=== PATIENT | male | born 1955 | race Caucasian/White ===

== ENCOUNTER 2017-08-13 13:07 | Inpatient (IN) | payer OTHER ==
[~2017-08-13] VITALS: Ht 188 cm; Wt 96.7 kg
[~2017-08-13 13:07] MED LIST: ASPI81TA28 PO; CLOP1TAB5 PO; FLUT0.0529 NAE; GLIM1TAB2 PO; LEVO75TA5 PO; LISI40TA PO; META800T99 PO; METF-384 PO; METO50TA8 PO; Mometasone Furoate TOP; NITR0.4S UT; OXYCONTIN HCL PO; RANI150T85 PO; ZOLP10TA6 PO
[2017-08-13] MEDS ORDERED: SODIUM CHLORIDE 0.9% 1000ML 1,000 ML IV STA (13:30)
[2017-08-13 13:34] LABS: BASO % 0.3 %; BASO ABS # 0.02 K/uL (0-0.2); EOS % 2.7 %; EOS ABS # 0.18 K/uL (0-0.5); HEMATOCRIT 41.9 % (42-52); HEMOGLOBIN 14.1 g/dL (14.0-18.0); IG# 0.02 K/uL (0.00-0.02); LYMPH ABS # 1.75 K/uL (1.2-3.4); MEAN CELL VOLUME 92.3 fL (80-100); MEAN CORPUSCULAR HEMOGLOBIN 31.1 pg (25-34); MEAN CORPUSCULAR HGB CONC 33.7 g/dl (32-36); MEAN PLATELET VOLUME 9.1 fL (7.4-10.4); MONO % 8.6 %; MONO ABS # 0.58 K/uL (0.11-0.59); NEUT % 62.1 %; NEUT ABS # 4.17 K/uL (1.4-6.5); PLATELET COUNT 195 K/uL (130-400); RED CELL DISTRIBUTION WIDTH CV 13.4 % (11.5-14.5); RED CELL DISTRIBUTION WIDTH SD 45.3 fL (36.4-46.3); WHITE BLOOD COUNT 6.72 K/uL (4.8-10.8)
[2017-08-13 13:50] LABS: ALBUMIN 3.6 gm/dl (3.4-5.0); CALCIUM 8.8 mg/dl (8.5-10.1); CREATININE 1.03 mg/dl (0.60-1.40); POTASSIUM 3.8 mmol/L (3.5-5.1)
[2017-08-13 13:53] LABS: TOTAL PROTEIN 7.5 gm/dl (6.4-8.2)
--- NOTE | 2017-08-13 14:01 | DIAGNOSTIC IMAGING REPORT ---
SINGLE VIEW CHEST CLINICAL HISTORY: Neck mass seen by CT. FINDINGS: 2 AP, portable, upright chest radiographs are compared to study dated 04/03/2006. The examination is degraded by portable technique and patient rotation. The heart appears mildly enlarged. The pulmonary vasculature is noncongested. Widening of the superior mediastinum is suggested. Bibasilar atelectasis is observed. A 2.5 cm nodular density projects over the right upper lobe. No large pleural effusion or pneumothorax is seen. The skeletal structures are osteopenic. The bony thorax is grossly intact. IMPRESSION: 1. A 2.5 cm nodular density projects of the right upper lobe. Correlation with chest CT is recommended to assess for pulmonary lesion. 2. There is apparent widening of the mediastinum. This could be artifactual or could potential represent lymphadenopathy. This can also be assessed by CT. 3. Bibasilar atelectasis is observed. No airspace consolidation is seen typical for pneumonia. Electronically signed by: Joe Hanley M.D. 08/13/2017 2:00 PM Dictated Date/Time: 08/13/2017 1:57 PM
[2017-08-13] MEDS ORDERED: GABA-113 PO ×2 (14:07)
[2017-08-13] MEDS ORDERED: FLUT0.15 NAE (14:07)
[2017-08-13] MEDS ORDERED: MoRPHine SULFATE 10 MG/ML CARP/VIAL IV STA (14:52)
[2017-08-13] MEDS ORDERED: NITROGLYCERIN 0.4 MG SL PER TAB CHARGE SL PRN (15:15)
[2017-08-13] MEDS ORDERED: GLUCAGON FOR INJ 1 MG VIAL SQ PRN (15:15)
[2017-08-13] MEDS ORDERED: GLUCOSE 10 TABS/TUBE PO PRN (15:15)
[2017-08-13] MEDS ORDERED: HYDR12.56 PO (15:15)
[2017-08-13] MEDS ORDERED: ACETAMINOPHEN 325 MG TAB PO PRN (15:15)
[2017-08-13] MEDS ORDERED: AMLO-114 PO (15:15)
[2017-08-13] MEDS ORDERED: TRAM-10 PO (15:15)
[2017-08-13] MEDS ORDERED: POLYETHYLENE (MIRALAX) 17 GM PACK PO PRN (15:15)
[2017-08-13] MEDS ORDERED: GLUCOSE 40% GEL 15 GM TUBE PO PRN (15:15)
[2017-08-13] MEDS ORDERED: PANT40TA PO (15:15)
[2017-08-13] MEDS ORDERED: DEXTROSE 50% 50 ML SYR IV PRN (15:15)
[2017-08-13] MEDS ORDERED: MELA1TAB5 PO (15:15)
[2017-08-13] MEDS ORDERED: ZOLPIDEM TARTRATE 10 MG TAB PO PRN (15:30)
[2017-08-13] MEDS ORDERED: TRAMADOL HCL 50 MG TAB PO PRN (15:30)
--- NOTE | 2017-08-13 15:38 | DIAGNOSTIC IMAGING REPORT ---
CT SCAN OF THE CHEST WITHOUT IV CONTRAST CLINICAL HISTORY: Reported history of neck mass. Abnormal chest x-ray. COMPARISON STUDY: Chest x-ray dated 08/13/2017. TECHNIQUE: CT scan of the thorax was performed from the thoracic inlet to the upper abdomen. Images are reviewed in the axial, sagittal, and coronal planes. IV contrast was not administered for this examination as per the referring clinician. Note that the examination was performed in suboptimal fashion without IV contrast. A dose lowering technique was utilized adhering to the principles of ALARA. CT DOSE: 774.92 mGy.cm FINDINGS: Thyroid: Imaged portions of the thyroid gland are normal in size and attenuation. Thoracic aorta: There is mild atherosclerotic calcification of the thoracic aorta, which is normal in caliber and demonstrates standard 3-vessel arch anatomy. Heart: The heart is normal in size and there is a small pericardial effusion. The coronary arteries are densely calcified. Lungs and pleural spaces: Mild emphysematous change is identified. There are small pleural effusions associated atelectasis. No airspace consolidation is seen typical for pneumonia. There is a multilobulated/spiculated mass lesion in the right upper lobe in the suprahilar region. This measures 4.0 x 3.0 x 2.6 cm. Numerous additional small nodules are seen in the right upper lobe. Intralobular septal thickening and nodularity are seen in the right upper lobe. No lesions are seen in the right middle or lower lobes, and there is no left-sided pulmonary lesion identified. Lower neck: Cervical adenopathy is partially visualized. A left cervical chain node seen on image #2 measures 3.6 x 3.3 cm. Mediastinum: There is bulky mediastinal lymphadenopathy. A right paratracheal node on image #111 measures 3.6 x 3.0 cm. Confluent anterior/superior mediastinal adenopathy measures approximately 4.5 x 10 cm as seen on image #77 Julia: Not well assessed without IV contrast. There is probable right hilar adenopathy. Axillae: There is no axillary lymphadenopathy. Upper abdomen: Bilateral adrenal nodules are indeterminant and measure up to 2.8 cm. Findings suggest hepatic steatosis. A tiny hiatal hernia is observed. Excreted contrast is seen within the renal collecting system bilaterally. Skeletal structures: The skeletal structures are osteopenic. No lytic or blastic bony lesions are seen. IMPRESSION: 1. There is a 4.0 cm right upper lobe mass lesion. This should be considered neoplasm until proven otherwise. 2. Additional subcentimeter nodules are seen in the right upper lobe with associated intralobular septal thickening. This likely represents lymphangitic spread of tumor. 3. There is bulky mediastinal lymphadenopathy, left cervical adenopathy, and probable right hilar adenopathy. This should also be considered neoplasm until proven otherwise. 4. Small pleural effusions are identified. 5. There is a small pericardial effusion. 6. Bilateral adrenal nodules are indeterminant. 7. Emphysema. 8. Additional findings as above. Electronically signed by: Joe Hanley M.D. 08/13/2017 3:37 PM Dictated Date/Time: 08/13/2017 3:28 PM
--- NOTE | 2017-08-13 15:57 | History and Physical ---
History & Physical Date & Time of Service: Aug 13, 2017 at 15:25 Chief Complaint: Pain,Light Headed, Dizzy Primary Care Physician: Fabián Pérez M.D. History of Present Illness Source: patient, spouse, clinic records, hospital records Pt is 62 y/o M with PMH DM II, HTN, CAD S/P LILLI LAD 2 in 2010, chronic RBBB, chronic low back pain, hypothyroidism sent to ER for neck swelling and mass. Patient seen outpatient at PCP office today for neck swelling and had stat CT scan and sent to ER for further evaluation. Patient reports for past month has noticed some dysphagia, hoarseness, sore throat and bilateral neck pain. Past week has noticed bilateral neck swelling and difficulty with range of motion neck secondary to neck swelling. States it has been drooling. During the day he is able to swallow secretions and has been eating and drinking. Has discomfort swallowing but denies any choking or food bolus sensation. Past week been feeling lightheaded with walking. Denies syncope. Patient states has been having night sweats. Denies fever, N/V/D/C, MOURA, vision changes, CP, SOB, orthopnea, palpitations, cough, otalgia, abdominal pain, paresthesias, weakness , extremity weakness, extremity edema, rashes, urinary symptoms, weight loss. 08/13/17 CT neck with contrast: Impression: 1 conglomerate superior mediastinal and cervical lymphadenopathy and partially imaged right upper lobe lung mass. Findings are highly concerning for malignancy, particularly lymphoma or metastatic lung cancer. 2. Massive lymph adenopathy partially surrounds the trachea, encases the innominate artery and severely compresses and may invade the superior vena cava. 3. Diffuse subcutaneous, retropharyngeal, hypopharyngeal and laryngeal edema may be secondary to venous congestion. Past Medical/Surgical History Medical Problems: (1) Abrasion Status: Resolved (2) CAD (coronary artery disease) Permanent Comment: s/p LILLI LAD x 2, 2010 Status: Chronic (3) Chronic low back pain Status: Chronic (4) Crush injury forearm Status: Resolved (5) Diabetes Status: Chronic (6) HTN (hypertension) Status: Chronic (7) Hypothyroidism Status: Chronic (8) RBBB Status: Chronic Surgical Problems: (1) History of lumbar spinal fusion Status: Resolved (2) Hx of cardiac cath Permanent Comment: 2010- LILLI to LAD x 2 Status: Resolved Family History Cancer (Breast CA-mother) Social History Smoking Status: Former Smoker (Quit 2004. Smoked 1 PPD day 30 years) Smokeless Tobacco Use: No Alcohol Use: Rare Drug Use: none Marital Status: Housing status: lives with family Occupational Status: retired Allergies Coded Allergies: Naproxen (Verified Allergy, Unknown, ., 08/13/17) Home Medications Scheduled Amlodipine (Norvasc), 10 MG PO DAILY Aspirin (Aspirin Ec), 81 MG PO DAILY Fluticasone Propionate (Nasal) (Flonase Allergy Relief), 2 SPRAY DESTIN DAILY Gabapentin (Neurontin), 300 MG PO TID Glimepiride (Glimepiride), 1 MG PO DAILY Hydrochlorothiazide (Hctz), 1 CAP PO DAILY Levothyroxine Sodium (Levothyroxine Sodium), 75 MCG PO DAILY Lisinopril (Zestril), 40 MG PO DAILY Melatonin (Kp Melatonin), 1 TAB PO HS Metformin Hcl (Glucophage), 1,000 MG PO BID Metoprolol Succ (Toprol Xl) (Toprol-Xl), 50 MG PO DAILY Pantoprazole Sodium (Protonix), 1 TAB PO DAILY Rosuvastatin Calcium (Crestor), 40 MG PO QPM Scheduled PRN Nitroglycerin (Nitrostat), 0.4 MG UT UD PRN for Chest Pain Tramadol (Ultram), 50 MG PO Q6 PRN for Pain Zolpidem Tartrate (Zolpidem Tartrate), 10 MG PO HS PRN for Sleep Review of Systems See HPI for pertinent positives & negatives. All other systems reviewed and were otherwise negative Physical Exam Vital Signs Date Time Temp Pulse Resp B/P (MAP) Pulse Ox O2 Delivery O2 Flow Rate FiO2 08/13/17 15:02 71 18 120/67 95 Room Air 08/13/17 13:58 76 20 131/67 95 Room Air 08/13/17 13:25 95 Room Air 08/13/17 13:23 75 08/13/17 13:12 36.8 76 20 119/69 97 Room Air General Appearance: WD/WN, no apparent distress Head: normocephalic, atraumatic Eyes: normal inspection, PERRL, EOMI, sclerae normal ENT: hearing grossly normal, pharynx normal (No edema or erythema noted. Uvula midline. Tongue without erythema or edema.), + pertinent finding (Mucous membranes moist) Neck: trachea midline, + pertinent finding (Diffuse edema. Positive lymphadenopathy) Respiratory/Chest: lungs clear, normal breath sounds, no respiratory distress Cardiovascular: regular rate, rhythm, no murmur, normal peripheral pulses Abdomen/GI: normal bowel sounds, non tender, soft Back: no CVA tenderness Extremities/Musculoskelatal: normal inspection, no calf tenderness, no pedal edema, normal range of motion, non-tender Neurologic/Psych: alert, normal mood/affect, oriented x 3 Skin: normal color, warm/dry Diagnostics Laboratory Results Results Past 24 Hours Test 08/13/17 13:25 08/13/17 14:20 Range/Units White Blood Count 6.72 4.8-10.8 K/uL Red Blood Count 4.54 4.7-6.1 M/uL Hemoglobin 14.1 14.0-18.0 g/dL Hematocrit 41.9 42-52 % Mean Corpuscular Volume 92.3 80-100 fL Mean Corpuscular Hemoglobin 31.1 25-34 pg Mean Corpuscular Hemoglobin Concent 33.7 32-36 g/dl Platelet Count 195 130-400 K/uL Mean Platelet Volume 9.1 7.4-10.4 fL Neutrophils (%) (Auto) 62.1 % Lymphocytes (%) (Auto) 26.0 % Monocytes (%) (Auto) 8.6 % Eosinophils (%) (Auto) 2.7 % Basophils (%) (Auto) 0.3 % Neutrophils # (Auto) 4.17 1.4-6.5 K/uL Lymphocytes # (Auto) 1.75 1.2-3.4 K/uL Monocytes # (Auto) 0.58 0.11-0.59 K/uL Eosinophils # (Auto) 0.18 0-0.5 K/uL Basophils # (Auto) 0.02 0-0.2 K/uL RDW Standard Deviation 45.3 36.4-46.3 fL RDW Coefficient of Variation 13.4 11.5-14.5 % Immature Granulocyte % (Auto) 0.3 % Immature Granulocyte # (Auto) 0.02 0.00-0.02 K/uL Sodium Level 137 136-145 mmol/L Potassium Level 3.8 3.5-5.1 mmol/L Chloride Level 106 98-107 mmol/L Carbon Dioxide Level 26 21-32 mmol/L Anion Gap 5.0 3-11 mmol/L Blood Urea Nitrogen 13 7-18 mg/dl Creatinine 1.03 0.60-1.40 mg/dl Est Creatinine Clear Calc Drug Dose 85.4 ml/min Estimated GFR () 89.2 Estimated GFR (Non- 76.9 BUN/Creatinine Ratio 12.5 10-20 Random Glucose 114 70-99 mg/dl Calcium Level 8.8 8.5-10.1 mg/dl Total Bilirubin 0.6 0.2-1 mg/dl Direct Bilirubin 0.1 0-0.2 mg/dl Aspartate Amino Transf (AST/SGOT) 11 15-37 U/L Alanine Aminotransferase (ALT/SGPT) 14 12-78 U/L Alkaline Phosphatase 88 45-117 U/L Total Protein 7.5 6.4-8.2 gm/dl Albumin 3.6 3.4-5.0 gm/dl Lipase 182 73-393 U/L Urine Color YELLOW Urine Appearance CLEAR CLEAR Urine pH 5.0 4.5-7.5 Urine Specific [place] > 1.045 1.000-1.030 Urine Protein NEG NEG Urine Glucose (UA) NEG NEG Urine Ketones NEG NEG Urine Occult Blood TRACE NEG Urine Nitrite NEG NEG Urine Bilirubin NEG NEG Urine Urobilinogen NEG NEG Urine Leukocyte Esterase NEG NEG Urine WBC (Auto) 1-5 0-5 /hpf Urine RBC (Auto) 0-4 0-4 /hpf Urine Hyaline Casts (Auto) 1-5 0-5 /lpf Urine Epithelial Cells (Auto) 10-20 0-5 /lpf Urine Bacteria (Auto) NEG NEG Diagnostic Radiology OUTPATIENT CT NECK WITH CONTRAST:08/13/17 Impression: 1 conglomerate superior mediastinal and cervical lymphadenopathy and partially imaged right upper lobe lung mass. Findings are highly concerning for malignancy, particularly lymphoma or metastatic lung cancer. 2. Massive lymph adenopathy partially surrounds the trachea, encases the innominate artery and severely compresses and may invade the superior vena cava. 3. Diffuse subcutaneous, retropharyngeal, hypopharyngeal and laryngeal edema may be secondary to venous congestion. CXR: IMPRESSION: 1. A 2.5 cm nodular density projects of the right upper lobe. Correlation with chest CT is recommended to assess for pulmonary lesion. 2. There is apparent widening of the mediastinum. This could be artifactual or could potential represent lymphadenopathy. This can also be assessed by CT. 3. Bibasilar atelectasis is observed. No airspace consolidation is seen typical for pneumonia. Impression Assessment and Plan NECK MASS/LUNG MASS Patient presents with complaint of neck swelling, dysphagia, hoarseness, lightheadedness with standing over the past couple of weeks. Seen at PCP today and had CT neck with superior mediastinal and cervical lymphadenopathy and partially imaged right upper lobe lung mass. Massive lymph adenopathy partially surrounds the trachea, encases the innominate artery and severely compresses and may invade the superior vena cava. Diffuse subcutaneous, retropharyngeal, hypopharyngeal and laryngeal edema may be secondary to venous congestion. In ER Vitals stable. Patient able to handle secretions and maintaining airway. CXR in ER: 2.5 cm nodular density projects of the right upper lobe. There is apparent widening of the mediastinum. This could be artifactual or could potential represent lymphadenopathy. This can also be assessed by CT. Bibasilar atelectasis is observed. No airspace consolidation is seen typical for pneumonia. -Thoracic consult - spoke to Dr Sanchez, CT chest ordered and he plan to do biopsy tomorrow -N.p.o. after midnight -CBC, PRP in a.m. DM II H A1c 6.3 on 04/2012 -H A1c in a.m. -Hold oral agent -NovoLog sliding scale per protocol HTN Stable -Continue amlodipine, lisinopril, metoprolol, HCTZ HYPOTHYROIDISM TSH added -Continue levothyroxine CAD S/P STENT LAD IN 2010 No chest pain or shortness of breath -Continue statin, beta-fox CHRONIC LOW BACK PAIN -Continue gabapentin -Continue tramadol as needed pain GERD -Continue PPI DVT Prophylaxis -SCD in case of procedure in am Disposition admit tele Full code Follows with Dr Pérez for routine care Pt was seen with Dr Marquez. See addendum Attending Addendum Pt was seen and examined. Agreed with Ruth BUTLER exam, assessment and plan. 62 y /o M with PMH DM II, HTN, CAD S/P LILLI LAD 2 in 2010, chronic RBBB, chronic low back pain, hypothyroidism sent from PCP office to ER for neck swelling, sore throat. Pt said that for about 1 week, he has been having painful swallowing solid food. He said that his neck was mildly swollen yesterday, but this morning the swelling get worst. He had a CT neck done at his PCP office that showed superior mediastinal and cervical lymphadenopathy and partially imaged right upper lobe lung mass. Massive lymph adenopathy partially surrounds the trachea, encases the innominate artery and severely compresses and may invade the superior vena cava. Diffuse subcutaneous, retropharyngeal, hypopharyngeal and laryngeal edema may be secondary to venous congestion. Pt was sent to the ER for eval His vital is stable. Denies any SOB and chest pain. Thoracic surgeon consulted and recommended needle biopsy by IR radiology for further eval. Will make NPO after midnight. Will monitor closely in telemetry. MD Jimmy Resuscitation Status VTE Prophylaxis Will order VTE Prophylaxis: Yes Additional Copies To Fabián Pérez M.D.
[2017-08-13 17:16] VITALS: BP 147/79; PULSE 70; TEMP 36.9; BMI 27.3
--- NOTE | 2017-08-13 18:27 | SURGICAL CONSULTATION ---
DATE OF CONSULTATION: 08/13/2017 REASON FOR CONSULTATION: Marked mediastinal adenopathy with compromise of superior vena cava. HISTORY OF PRESENT ILLNESS: Mr. Lopez is a 62-year-old male who really not had much in the way systemic symptoms until the last few weeks. He denies weight loss. He has had no night sweats. He states that he has noticed some swelling in his neck and could feel some nodules. I was asked to evaluate him when a CT scan was ordered by his primary care physician. It showed marked edema in his laryngeal area, but also marked adenopathy. He has a huge left supraclavicular node. I was asked to evaluate him from a thoracic surgery standpoint as he has a right lung mass as well as marked mediastinal adenopathy. Despite his CT findings, he really has very little in the way of signs or symptoms of superior vena caval syndrome. He has had no tearing of his eyes. He has had no productive cough. He has noted some mild dysphagia recently with steak. He has had no hemoptysis. PAST MEDICAL HISTORY: 1. Lumbosacral degenerative disease. 2. History of cigarette smoking (smoked two packs of cigarettes a day for over 30 years, but quit at age 46). 3. Hypertension. 4. Diabetes mellitus. 5. Hypothyroidism. 6. Angina. 7. Probable gastroesophageal reflux disease. ALLERGIES: NAPROSYN. 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 He smoked between one and two packs of cigarettes a day before the age of 14 until the age of 46. He lives with his who is very supportive. FAMILY MEDICAL HISTORY: There is no history of diabetes other than in this patient. There is a history of cancer and coronary artery disease. PHYSICAL EXAMINATION: GENERAL: He is a rather large man standing 6 feet 2 inches tall, weighed 212 pounds. HEENT: Extraocular movements are intact. Pupils are equal, round and reactive. Sclerae are anicteric. He just looks like he has a bit of a cataract formation, right eye. He is edentulous with an upper denture plate. He has no leukoplakia or evidence of oral candidiasis. NECK: He has marked left supraclavicular lymph node enlargement. I really not feel much in the way of cervical nodes. He had no carotid bruits or neck vein distention really. CHEST: On auscultation of his chest, he is moving air fairly well. HEART: Sounds are distant, but he has a regular rate and rhythm of his heart. I really detect much in the way of axillary adenopathy. He is a large man. ABDOMEN: A bit obese, but soft and I detect no evidence of any hepatosplenomegaly or ascites. EXTREMITIES: He has had easily palpable pulses with hair growth down to his toes. He has no joint effusions. NEUROLOGIC: He is awake, alert and oriented with no obvious focal deficits. Right lung mass, marked mediastinal adenopathy. Much of the mediastinal nodes are prevascular. I believe we may well be dealing with a lymphoma. We should be go ahead and have a biopsy done of the left supraclavicular node first. This can be done percutaneously. I think a core biopsy may give us all that we need. We will follow along and if this is not successful, we will consider a mediastinoscopy. MIRNA
[2017-08-13] MEDS: INSULIN ASPART 100 UNITS/ML 3 ML PEN SC SCH ×2 (18:34→21:00)
--- NOTE | 2017-08-13 19:34 | EMERGENCY ROOM VISIT NOTE ---
History Report prepared by Abel: Ricki Lamas Under the Supervision of: Dr. Jake Phelps D.O. First contact with patient: 13:13 Chief Complaint: DIZZY Stated Complaint: PAIN,LIGHT HEADED, DIZZY History of Present Illness The patient is a 62 year old male who presents to the Emergency Room after referral from his primary care office with complaints of worsening fullness and pain in his neck, which he has been experiencing for the past month. The patient notes that the swelling and fullness in his neck has worsened significantly over the past couple of days. He is having trouble swallowing and has noticed a "hoarseness" in his voice. The patient is having difficulty/ resistance brining his chin to his chest. He denies any fevers, chest pain, shortness of breath, nausea, vomiting, diarrhea, pain with urination, and melena. Source of History: patient Onset: 1 month [employer]ING [employer] Position: neck Quality: other (fullness swelling) Timing: worsening Associated Symptoms: No chest pain, No SOB Note: Hoarseness of voice. Difficulty swallowing. Review of Systems See HPI for pertinent positives & negatives. A total of 10 systems reviewed and were otherwise negative. Past Medical & Surgical Medical Problems: (1) Abrasion (2) CAD (coronary artery disease) (3) Chronic low back pain (4) Crush injury forearm (5) Diabetes (6) HTN (hypertension) (7) Hypothyroidism (8) Lung mass (9) Neck mass (10) RBBB Surgical Problems: (1) History of lumbar spinal fusion (2) Hx of cardiac cath Diabetes Family History Cancer Social History Smoking Status: Never Smoker Alcohol Use: none Drug Use: none Marital Status: Occupation Status: retired Current/Historical Medications Scheduled Amlodipine (Norvasc), 10 MG PO DAILY Aspirin (Aspirin Ec), 81 MG PO DAILY Fluticasone Propionate (Nasal) (Flonase Allergy Relief), 2 SPRAY DESTIN DAILY Gabapentin (Neurontin), 300 MG PO TID Glimepiride (Glimepiride), 1 MG PO DAILY Hydrochlorothiazide (Hctz), 1 CAP PO DAILY Levothyroxine Sodium (Levothyroxine Sodium), 75 MCG PO DAILY Lisinopril (Zestril), 40 MG PO DAILY Melatonin (Kp Melatonin), 1 TAB PO HS Metformin Hcl (Glucophage), 1,000 MG PO BID Metoprolol Succ (Toprol Xl) (Toprol-Xl), 50 MG PO DAILY Pantoprazole Sodium (Protonix), 1 TAB PO DAILY Rosuvastatin Calcium (Crestor), 40 MG PO QPM Scheduled PRN Nitroglycerin (Nitrostat), 0.4 MG UT UD PRN for Chest Pain Tramadol (Ultram), 50 MG PO Q6 PRN for Pain Zolpidem Tartrate (Zolpidem Tartrate), 10 MG PO HS PRN for Sleep Allergies Coded Allergies: Naproxen (Verified Allergy, Unknown, ., 08/13/17) Physical Exam Vital Signs Date Time Temp Pulse Resp B/P (MAP) Pulse Ox O2 Delivery O2 Flow Rate FiO2 08/13/17 15:02 71 18 120/67 95 Room Air 08/13/17 13:58 76 20 131/67 95 Room Air 08/13/17 13:25 95 Room Air 08/13/17 13:23 75 08/13/17 13:12 36.8 76 20 119/69 97 Room Air Physical Exam GENERAL: Sitting up in bed, alert,talking in full sentences, well appearing, well nourished, no distress, non-toxic EYE EXAM: normal conjunctiva. OROPHARYNX: no exudate, no erythema, lips, buccal mucosa, and tongue normal and mucous membranes are moist NECK: There is fullness and swelling along the right greater than left neck, slightly hoarse voice. LUNGS: Clear to auscultation. Normal chest wall mechanics HEART: no murmurs, S1 normal and S2 normal ABDOMEN: abdomen soft, non-tender, normo-active bowel sounds, no masses, no rebound or guarding. BACK: Back is symmetrical on inspection and there is no deformity, no midline tenderness, no CVA tenderness. SKIN: no rashes and no bruising UPPER EXTREMITIES: upper extremities are grossly normal. Radial pulses are equal bilaterally. LOWER EXTREMITIES: No pitting edema. NEURO EXAM: Normal sensorium, cranial nerves II-XII grossly intact, normal speech, no gross weakness of arms, no gross weakness of legs. Medical Decision & Procedures ER Provider Diagnostic Interpretation: Radiology results as stated below per my review and the radiologist's interpretation: SINGLE VIEW CHEST CLINICAL HISTORY: Neck mass seen by CT. FINDINGS: 2 AP, portable, upright chest radiographs are compared to study dated 04/03/2006. The examination is degraded by portable technique and patient rotation. The heart appears mildly enlarged. The pulmonary vasculature is noncongested. Widening of the superior mediastinum is suggested. Bibasilar atelectasis is observed. A 2.5 cm nodular density projects over the right upper lobe. No large pleural effusion or pneumothorax is seen. The skeletal structures are osteopenic. The bony thorax is grossly intact. IMPRESSION: 1. A 2.5 cm nodular density projects of the right upper lobe. Correlation with chest CT is recommended to assess for pulmonary lesion. 2. There is apparent widening of the mediastinum. This could be artifactual or could potential represent lymphadenopathy. This can also be assessed by CT. 3. Bibasilar atelectasis is observed. No airspace consolidation is seen typical for pneumonia. Electronically signed by: Joe Hanley M.D. 08/13/2017 2:00 PM Dictated Date/Time: 08/13/2017 1:57 PM Laboratory Results 08/13/17 13:25 Red Blood Count 4.54, Mean Corpuscular Volume 92.3, Mean Corpuscular Hemoglobin 31.1, Mean Corpuscular Hemoglobin Concent 33.7, Mean Platelet Volume 9.1, Neutrophils (%) (Auto) 62.1, Lymphocytes (%) (Auto) 26.0, Monocytes (%) (Auto) 8.6, Eosinophils (%) (Auto) 2.7, Basophils (%) (Auto) 0.3, Neutrophils # (Auto) 4.17, Lymphocytes # (Auto) 1.75, Monocytes # (Auto) 0.58, Eosinophils # (Auto) 0.18, Basophils # (Auto) 0.02 08/13/17 13:25 Test 08/13/17 13:25 08/13/17 14:20 White Blood Count 6.72 K/uL (4.8-10.8) Red Blood Count 4.54 M/uL (4.7-6.1) Hemoglobin 14.1 g/dL (14.0-18.0) Hematocrit 41.9 % (42-52) Mean Corpuscular Volume 92.3 fL (80-100) Mean Corpuscular Hemoglobin 31.1 pg (25-34) Mean Corpuscular Hemoglobin Concent 33.7 g/dl (32-36) Platelet Count 195 K/uL (130-400) Mean Platelet Volume 9.1 fL (7.4-10.4) Neutrophils (%) (Auto) 62.1 % Lymphocytes (%) (Auto) 26.0 % Monocytes (%) (Auto) 8.6 % Eosinophils (%) (Auto) 2.7 % Basophils (%) (Auto) 0.3 % Neutrophils # (Auto) 4.17 K/uL (1.4-6.5) Lymphocytes # (Auto) 1.75 K/uL (1.2-3.4) Monocytes # (Auto) 0.58 K/uL (0.11-0.59) Eosinophils # (Auto) 0.18 K/uL (0-0.5) Basophils # (Auto) 0.02 K/uL (0-0.2) RDW Standard Deviation 45.3 fL (36.4-46.3) RDW Coefficient of Variation 13.4 % (11.5-14.5) Immature Granulocyte % (Auto) 0.3 % Immature Granulocyte # (Auto) 0.02 K/uL (0.00-0.02) Prothrombin Time 10.4 SECONDS (9.0-12.0) Prothromb Time International Ratio 1.0 (0.9-1.1) Activated Partial Thromboplast Time 28.0 SECONDS (21.0-31.0) Partial Thromboplastin Ratio 1.1 Anion Gap 5.0 mmol/L (3-11) Est Creatinine Clear Calc Drug Dose 85.4 ml/min Estimated GFR () 89.2 Estimated GFR (Non- 76.9 BUN/Creatinine Ratio 12.5 (10-20) Calcium Level 8.8 mg/dl (8.5-10.1) Total Bilirubin 0.6 mg/dl (0.2-1) Direct Bilirubin 0.1 mg/dl (0-0.2) Aspartate Amino Transf (AST/SGOT) 11 U/L (15-37) Alanine Aminotransferase (ALT/SGPT) 14 U/L (12-78) Alkaline Phosphatase 88 U/L (45-117) Total Protein 7.5 gm/dl (6.4-8.2) Albumin 3.6 gm/dl (3.4-5.0) Lipase 182 U/L (73-393) Thyroid Stimulating Hormone (TSH) 1.790 uIu/ml (0.300-4.500) Urine Color YELLOW Urine Appearance CLEAR (CLEAR) Urine pH 5.0 (4.5-7.5) Urine Specific Clark > 1.045 (1.000-1.030) Urine Protein NEG (NEG) Urine Glucose (UA) NEG (NEG) Urine Ketones NEG (NEG) Urine Occult Blood TRACE (NEG) Urine Nitrite NEG (NEG) Urine Bilirubin NEG (NEG) Urine Urobilinogen NEG (NEG) Urine Leukocyte Esterase NEG (NEG) Urine WBC (Auto) 1-5 /hpf (0-5) Urine RBC (Auto) 0-4 /hpf (0-4) Urine Hyaline Casts (Auto) 1-5 /lpf (0-5) Urine Epithelial Cells (Auto) 10-20 /lpf (0-5) Urine Bacteria (Auto) NEG (NEG) Laboratory results per my review. Medications Administered Medications (Trade) Dose Ordered Sig/Cj Route Start Time Stop Time Status Last Admin Dose Admin Sodium Chloride 1,000 ml @ 999 mls/hr Q1H1M STAT IV 08/13/17 13:30 08/13/17 14:30 DC 08/13/17 13:58 999 MLS/HR Morphine Sulfate (MoRPHine SULFATE INJ) 6 mg NOW STAT IV 08/13/17 14:52 08/13/17 14:53 DC 08/13/17 15:02 6 MG ECG Per My Interpretation Indication: weakness Rate (beats per minute): 72 Rhythm: normal sinus Findings: 1st degree AV block, other (Poor baseline for interpretation) ED Course ED COURSE: Vital signs were reviewed and showed normal vitals. The patients medical record was reviewed The above diagnostic studies were performed and reviewed. ED treatments and interventions as stated above. 1309: I discussed the case with Dr. Quezada - Thoracic Surgery prior to the patients arrival to the department. He believes that we will be able to keep the patient in house for treatment. 1323: The patient was evaluated in room B12B. A complete history and physical examination was performed. 1330: Ordered Sodium Chloride 1000 mL @ 999 mL/hr IV. 1342: I discussed the case with Ruth Dawkins - [facility] Hospitalist MARY ANN Campos. She discussed with vascular and is agreeable to admitting the patient. 1348: I discussed the Dr. Jesus - Vascular Surgery. He states that the patient will need radiation prior to stenting. There is no need for emergent intervention. 1432: Dr. Quezada and Ruth are at bedside at this time. We discussed the case with the patient. The patient will be admitted to the [facility] Staff. 1433: Upon reevaluation, the patient is resting in bed.I discussed my findings with the patient and the admitting staff. They understands and agrees with the treatment plan. Based on the patients age, coexisting illnesses, exam and lab findings the decision to treat as an inpatient was made. The patient remained stable while under my care. The patient appeared well at the time of discharge. 1452: Ordered Morphine Sulfate 6 mg IV. Medical Decision Differential Diagnosis includes but is not limited to dehydration, stroke, anemia, hypoglycemia, hyponatremia, hypernatremia, urinary tract infection, pneumonia, bronchitis, sepsis, gastroenteritis, additional abdominal pathology, metabolic abnormalities and infections. Pt referred in by PCP. CT shows extensive lymphadenopathy and ? involvement of mass into R subclavian artery. CXR with mass. Airway stable via CT and exam. Tolerating secretions at bedside. Seen by Thoracic surg, and D/w Vascular along with IM. Pt was undated at bedside. CBC along with BMP and lft was unremarkable. UA neg. Pt was admitted for workup for metastatic cancer and large neck mass. Medication Reconcilliation Current Medication List: was personally reviewed by me Blood Pressure Screening Patient's blood pressure: Normal blood pressure Consults Time Called: 1339 [facility] Returned Call: 1342 [facility] She discussed with vascular and is agreeable to admitting the patient. Additional Consults: Time Called: 1348 Consulted Physician: Dr. Jesus - Vascular Surgery Returned Call: 1348 Additional Comments: I discussed the Dr. Jesus - Vascular Surgery. He states that the patient will need radiation prior to stenting. There is no need for emergent intervention. Time Called: 1309 Consulted Physician: Dr. Quezada - Thoracic Surgery Returned Call: 1309 Additional Comments: I discussed the case with Dr. Quezada - Thoracic Surgery prior to the patients arrival to the department. He believes that we will be able to keep the patient in house for treatment. Impression Primary Impression: Neck mass Additional Impression: Metastatic cancer Scribe Attestation The scribe's documentation has been prepared under my direction and personally reviewed by me in its entirety. I confirm that the note above accurately reflects all work, treatment, procedures, and medical decision making performed by me. Departure Information Dispostion Being Evaluated By Hospitalist Referrals Fabián Pérez M.D. (PCP) Patient Instructions My [facility] Problem Qualifiers
[2017-08-13 20:07] VITALS: BP 147/69; PULSE 72; TEMP 36.9; O2SAT 93
[2017-08-13] MEDS ORDERED: NON-FORMULARY MEDICATION (Melatonin (Kp Melatonin) 1 TAB) PO SCH (21:00)
[2017-08-13] MEDS: ROSUVASTATIN CALCIUM 20 MG TAB PO SCH (21:09)
[2017-08-13] MEDS: GABAPENTIN 300 MG CAP PO SCH (21:09)
[2017-08-13] MEDS ORDERED: ROSU40TA PO (21:36)
[2017-08-14] VITALS (13 sets, daily range): BP systolic 123–154; BP diastolic 68–87; PULSE 64–91; TEMP 36.7–37; O2SAT 88–96; BMI 26.8
[2017-08-14] MEDS: LEVOTHYROXINE 75 MCG TAB PO SCH (05:53)
[2017-08-14 06:05] LABS: HEMATOCRIT 40.7 % (42-52); HEMOGLOBIN 13.5 g/dL (14.0-18.0); MEAN CELL VOLUME 92.3 fL (80-100); MEAN CORPUSCULAR HEMOGLOBIN 30.6 pg (25-34); MEAN CORPUSCULAR HGB CONC 33.2 g/dl (32-36); MEAN PLATELET VOLUME 9.3 fL (7.4-10.4); PLATELET COUNT 181 K/uL (130-400); RED CELL DISTRIBUTION WIDTH CV 13.4 % (11.5-14.5); RED CELL DISTRIBUTION WIDTH SD 45.4 fL (36.4-46.3); WHITE BLOOD COUNT 6.62 K/uL (4.8-10.8)
[2017-08-14] MEDS: INSULIN ASPART 100 UNITS/ML 3 ML PEN SC SCH ×4 (06:30→21:00)
[2017-08-14 06:38] LABS: CALCIUM 8.7 mg/dl (8.5-10.1); CREATININE 1.03 mg/dl (0.60-1.40)
[2017-08-14 07:23] LABS: HEMOGLOBIN A1C 6.4 % (4.5-5.6)
[2017-08-14] MEDS: ASPIRIN 81 MG ECTAB PO SCH (08:29)
[2017-08-14] MEDS: HYDROCHLOROTHIAZIDE 25 MG TAB PO SCH (08:30)
[2017-08-14] MEDS: AMLODIPINE BESYLATE 5 MG TAB PO SCH (08:30)
[2017-08-14] MEDS: GABAPENTIN 300 MG CAP PO SCH ×3 (08:30→21:03)
[2017-08-14] MEDS: PANTOprazole SOD 40 MG TAB PO SCH (08:30)
[2017-08-14] MEDS: LISINOPRIL 40 MG TAB PO SCH (08:31)
[2017-08-14] MEDS: METOPROLOL SUCC 50MG EXT REL TAB PO SCH (08:31)
[2017-08-14] MEDS: FLUTICASONE PROPIONATE NA SPR 16 GM BTL NAE SCH (08:32)
[2017-08-14] MEDS: MoRPHine SULFATE 2 MG/ML CARP IV PRN ×4 (08:45→22:14)
--- NOTE | 2017-08-14 10:11 | DIAGNOSTIC IMAGING REPORT ---
ULTRASOUND-GUIDED FINE-NEEDLE ASPIRATION OF A LEFT NECK MASS/LYMPHADENOPATHY HISTORY: Left supraclavicular adenopathy COMPARISON: Neck CT 08/13/2017. PROCEDURE: Written informed consent was obtained. The neck was prepped and draped in the usual sterile fashion. 1% lidocaine was used for local anesthesia. A total of 3 passes using a 25-gauge needle and 22-gauge needle were made through the left neck mass/lymph node under ultrasound guidance. Specimens were given to the on-site pathologist who determined adequate tissue for diagnosis. The patient tolerated the procedure well. There were no immediate obligations. IMPRESSION: Successful ultrasound-guided fine-needle aspiration of a left neck mass/lymph node. Electronically signed by: Dashawn Smith M.D. 08/14/2017 10:10 AM Dictated Date/Time: 08/14/2017 10:09 AM
[2017-08-14] MEDS ORDERED: OPTIRAY 320 IV PRN (11:00)
[2017-08-14] MEDS: ALLOPURINOL 300 MG TAB PO SCH (11:00)
--- NOTE | 2017-08-14 12:42 | Progress Note ---
Internal Med Progress Note Date of Service: Aug 14, 2017. Provider Documentation: SUBJECTIVE: Seen and examined at bedside States having neck swelling, pain and SOB Pain increases with neck movement Also has hoarseness Dysphagia with solids Denies chest pain, nausea, abd pain Family at bedside No other complaints OBJECTIVE: Vital Signs-as noted below Physical Exam: General Appearance:Moderately built and nourished, no apparent distress Head: normocephalic, Atraumatic Neck:+ swelling, tender to palpate Eyes: normal inspection, EOMI, PERRL Neck: supple, Trachea midline Respiratory/Chest: Decreased breath sounds, CTA Cardiovascular: S1, S2, No murmur Abdomen/GI:Soft, Non tender, Bowel sounds present Extremities/Musculoskelatal:normal inspection, no edema Neurologic/Psych:AAOX3, grossly no focal neurological deficits Skin: normal color, warm Lab data as noted below. ASSESSMENT & PLAN: Neck Mass/Lung Mass/Mediastinal adenopathy Malignancy until proven otherwise Dysphagia: S/P ultrasound-guided fine-needle aspiration of a left neck mass/lymph node. Pathology:pending CT chest as below CT ABD/Bone scan ordered Oncology consulted Appreciate CT surgery help Started on allopurinol Likely for radiation therapy Speech and swallow eval pain control DM II H A1c: 6.4 Hold oral agent continue ISS monitor BGs HTN Stable Continue amlodipine, lisinopril, metoprolol, HCTZ Hypothyroidism: TSH: normal Continue levothyroxine CAD S/P Stent to LAD Continue Aspirin, statin, beta-fox Chronic back pain: Continue gabapentin GERD Continue PPI DVT Px: Lovenox SQ Code Status: Full code Disposition: Monitor in Tele Follows with Dr Pérez for routine care PROCEDURES: CT chest: 1. There is a 4.0 cm right upper lobe mass lesion. This should be considered neoplasm until proven otherwise. 2. Additional subcentimeter nodules are seen in the right upper lobe with associated intralobular septal thickening. This likely represents lymphangitic spread of tumor. 3. There is bulky mediastinal lymphadenopathy, left cervical adenopathy, and probable right hilar adenopathy. This should also be considered neoplasm until proven otherwise. 4. Small pleural effusions are identified. 5. There is a small pericardial effusion. 6. Bilateral adrenal nodules are indeterminant. Vital Signs: Date Time Temp Pulse Resp B/P (MAP) Pulse Ox O2 Delivery O2 Flow Rate FiO2 08/14/17 11:55 36.8 79 18 123/76 (92) 93 Room Air 08/14/17 08:00 96 Room Air 08/14/17 07:53 36.9 73 18 134/68 (90) 96 Room Air 08/14/17 04:56 36.7 73 19 147/77 (100) 96 Room Air 08/14/17 04:00 Room Air 08/14/17 00:01 Room Air 08/13/17 20:07 36.9 72 16 147/69 (95) 93 Room Air 08/13/17 20:00 Room Air 08/13/17 17:16 36.9 70 20 147/79 Room Air 08/13/17 16:38 69 18 125/64 96 08/13/17 15:02 71 18 120/67 95 Room Air 08/13/17 13:58 76 20 131/67 95 Room Air 08/13/17 13:25 95 Room Air 08/13/17 13:23 75 08/13/17 13:12 36.8 76 20 119/69 97 Room Air Lab Results: Results Past 24 Hours Test 08/13/17 13:25 08/13/17 14:20 08/13/17 17:18 08/13/17 20:40 Range/Units White Blood Count 6.72 4.8-10.8 K/uL Red Blood Count 4.54 4.7-6.1 M/uL Hemoglobin 14.1 14.0-18.0 g/dL Hematocrit 41.9 42-52 % Mean Corpuscular Volume 92.3 80-100 fL Mean Corpuscular Hemoglobin 31.1 25-34 pg Mean Corpuscular Hemoglobin Concent 33.7 32-36 g/dl Platelet Count 195 130-400 K/uL Mean Platelet Volume 9.1 7.4-10.4 fL Neutrophils (%) (Auto) 62.1 % Lymphocytes (%) (Auto) 26.0 % Monocytes (%) (Auto) 8.6 % Eosinophils (%) (Auto) 2.7 % Basophils (%) (Auto) 0.3 % Neutrophils # (Auto) 4.17 1.4-6.5 K/uL Lymphocytes # (Auto) 1.75 1.2-3.4 K/uL Monocytes # (Auto) 0.58 0.11-0.59 K/uL Eosinophils # (Auto) 0.18 0-0.5 K/uL Basophils # (Auto) 0.02 0-0.2 K/uL RDW Standard Deviation 45.3 36.4-46.3 fL RDW Coefficient of Variation 13.4 11.5-14.5 % Immature Granulocyte % (Auto) 0.3 % Immature Granulocyte # (Auto) 0.02 0.00-0.02 K/uL Prothrombin Time 10.4 9.0-12.0 SECONDS Prothromb Time International Ratio 1.0 0.9-1.1 Activated Partial Thromboplast Time 28.0 21.0-31.0 SECONDS Partial Thromboplastin Ratio 1.1 Sodium Level 137 136-145 mmol/L Potassium Level 3.8 3.5-5.1 mmol/L Chloride Level 106 98-107 mmol/L Carbon Dioxide Level 26 21-32 mmol/L Anion Gap 5.0 3-11 mmol/L Blood Urea Nitrogen 13 7-18 mg/dl Creatinine 1.03 0.60-1.40 mg/dl Est Creatinine Clear Calc Drug Dose 85.4 ml/min Estimated GFR () 89.2 Estimated GFR (Non- 76.9 BUN/Creatinine Ratio 12.5 10-20 Random Glucose 114 70-99 mg/dl Calcium Level 8.8 8.5-10.1 mg/dl Total Bilirubin 0.6 0.2-1 mg/dl Direct Bilirubin 0.1 0-0.2 mg/dl Aspartate Amino Transf (AST/SGOT) 11 15-37 U/L Alanine Aminotransferase (ALT/SGPT) 14 12-78 U/L Alkaline Phosphatase 88 45-117 U/L Total Protein 7.5 6.4-8.2 gm/dl Albumin 3.6 3.4-5.0 gm/dl Lipase 182 73-393 U/L Thyroid Stimulating Hormone (TSH) 1.790 0.300-4.500 uIu/ml Urine Color YELLOW Urine Appearance CLEAR CLEAR Urine pH 5.0 4.5-7.5 Urine Specific Breeden > 1.045 1.000-1.030 Urine Protein NEG NEG Urine Glucose (UA) NEG NEG Urine Ketones NEG NEG Urine Occult Blood TRACE NEG Urine Nitrite NEG NEG Urine Bilirubin NEG NEG Urine Urobilinogen NEG NEG Urine Leukocyte Esterase NEG NEG Urine WBC (Auto) 1-5 0-5 /hpf Urine RBC (Auto) 0-4 0-4 /hpf Urine Hyaline Casts (Auto) 1-5 0-5 /lpf Urine Epithelial Cells (Auto) 10-20 0-5 /lpf Urine Bacteria (Auto) NEG NEG Bedside Glucose 86 137 70-99 mg/dl Test 08/14/17 05:31 08/14/17 07:35 08/14/17 11:06 08/14/17 11:53 Range/Units White Blood Count 6.62 4.8-10.8 K/uL Red Blood Count 4.41 4.7-6.1 M/uL Hemoglobin 13.5 14.0-18.0 g/dL Hematocrit 40.7 42-52 % Mean Corpuscular Volume 92.3 80-100 fL Mean Corpuscular Hemoglobin 30.6 25-34 pg Mean Corpuscular Hemoglobin Concent 33.2 32-36 g/dl RDW Standard Deviation 45.4 36.4-46.3 fL RDW Coefficient of Variation 13.4 11.5-14.5 % Platelet Count 181 130-400 K/uL Mean Platelet Volume 9.3 7.4-10.4 fL Sodium Level 140 136-145 mmol/L Potassium Level 4.0 3.5-5.1 mmol/L Chloride Level 108 98-107 mmol/L Carbon Dioxide Level 28 21-32 mmol/L Anion Gap 4.0 3-11 mmol/L Blood Urea Nitrogen 13 7-18 mg/dl Creatinine 1.03 0.60-1.40 mg/dl Est Creatinine Clear Calc Drug Dose 85.4 ml/min Estimated GFR () 89.2 Estimated GFR (Non- 76.9 BUN/Creatinine Ratio 12.3 10-20 Random Glucose 89 70-99 mg/dl Estimated Average Glucose 137 mg/dl Hemoglobin A1c 6.4 4.5-5.6 % Calcium Level 8.7 8.5-10.1 mg/dl Bedside Glucose 103 201 70-99 mg/dl Uric Acid 4.8 2.6-7.2 mg/dl Lactate Dehydrogenase 192 87-241 U/L
[2017-08-14 12:50] LABS: BASO % 0.1 %; BASO ABS # 0.01 K/uL (0-0.2); EOS % 2.9 %; IG# 0.02 K/uL (0.00-0.02); LYMPH % 23.4 %; MONO % 15.7 %; MONO ABS # 1.07 K/uL (0.11-0.59); NEUT % 57.6 %; NEUT ABS # 3.93 K/uL (1.4-6.5)
--- NOTE | 2017-08-14 13:32 | Medical Consult ---
Consultation Date of Consultation: Aug 14, 2017. 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 Lopez is a 62 yo CM new to the consulting Medical Oncology service. He has a PMH positive for T2DM, CAD with stent placement in 2010(?) after a SC, HTN. He presented to [facility] on 08/13/17 at the direction of his PCP after he presented with neck fullness and swelling. He had a stat CT of the neck which revealed vascular congestion of the neck, cervical and supraclavicular adenopathy, partially visualized mediastinal adenopathy, tumor compression of vascular structures including SVC, and partially visualized mass in right lung. He was then sent to ER. In the ER, he had CT of chest that revealed RUL mass, lymphangitic spread in RUL , extensive mediastinal and hilar adenopathy, indeterminate adrenal nodules. Dr. Sanchez was consulted urgently for biopsy which the preliminary is SCLC, however IHC won't be completed until Thursday. Radiation and Medical Oncology have been consulted. Additional history obtained from the patient at bedside. He states his right/ front side of his neck started to swell in the past 4 days prior to admission. He states yesterday he was unable to really bend his neck down and so he got an appt with his PCP. He states he has had dyspnea with exertion, cough and lightheadedness over the past couple of weeks. He denies chest pain. He has had a left frontal headache, mild, intermittently. He denies vision change, wears reading glasses. He denies anorexia, N/V, dysphagia, bowel irregularity, bloody or black bowels. He has not had UE or LE edema. He smoked 2-3 PPD x 35 yrs. He is a social drinker, no illegal drugs. He is disabled from a back injury in early . He denies a history of cancer or VTE. His mother has breast cancer and his sister had unknown type of cancer, patient could not offer more specifics. His sister is still living and mother of SC. Past Medical/Surgical History Medical Problems: (1) Diabetes Status: Chronic (2) Metastatic cancer Status: Acute Family History Cancer (Breast CA-mother) Social History Smoking Status: Former Smoker Smokeless Tobacco Use: No Alcohol Use: Rare Drug Use: none Marital Status: Occupation Status: retired Allergies Coded Allergies: Naproxen (Verified Allergy, Unknown, ., 08/13/17) Current Inpatient Medications Current Inpatient Medications Medications (Trade) Dose Ordered Sig/Cj Route Start Time Stop Time Status Last Admin Dose Admin Acetaminophen (Tylenol Tab) 650 mg Q4H PRN PO 08/13/17 15:15 09/12/17 15:14 Ondansetron HCl (Zofran Inj) 4 mg Q6H PRN IV 08/13/17 15:15 09/12/17 15:14 Nitroglycerin (Nitrostat Tab) 0.4 mg UD PRN SL 08/13/17 15:15 09/12/17 15:14 Polyethylene (Miralax Powder Packet) 17 gm DAILY PRN PO 08/13/17 15:15 09/12/17 15:14 Insulin Aspart (novoLOG ASPART) SLIDING SCALE If C... ACHS SC 08/13/17 16:00 09/12/17 15:59 08/13/17 18:34 1 UNITS Glucose (Glucose 40% Gel) 15-30 GRAMS 15 GRAMS... UD PRN PO 08/13/17 15:15 09/12/17 15:14 Glucose (Glucose Chew Tab) 4-8 Tablets 4 Tabl... UD PRN PO 08/13/17 15:15 09/12/17 15:14 Dextrose (Dextrose 50% 50ML Syringe) 25-50ML OF 50% DW IV FOR... UD PRN IV 08/13/17 15:15 09/12/17 15:14 Glucagon (Glucagon Inj) 1 mg UD PRN SQ 08/13/17 15:15 09/12/17 15:14 Morphine Sulfate (MoRPHine SULFATE INJ) 2 mg Q4 PRN IV 08/13/17 15:30 08/27/17 15:29 08/14/17 08:45 2 MG Amlodipine Besylate (Norvasc Tab) 10 mg DAILY PO 08/14/17 09:00 09/13/17 08:59 Aspirin (Ecotrin Tab) 81 mg DAILY PO 08/14/17 09:00 09/13/17 08:59 Fluticasone Propionate (Flonase Nasal [place]) 2 sprays DAILY DESTIN 08/14/17 09:00 09/13/17 08:59 4/27/18 08:32 2 SPRAYS Gabapentin (Neurontin Cap) 300 mg TID PO 08/13/17 21:00 09/12/17 20:59 08/13/17 21:09 300 MG Hydrochlorothiazide (Hydrochlorothiazide Tab) 12.5 mg DAILY PO 08/14/17 09:00 09/13/17 08:59 Levothyroxine Sodium (Synthroid Tab) 75 mcg DAILYBB PO 08/14/17 06:30 09/13/17 06:59 Lisinopril (Zestril Tab) 40 mg DAILY PO 08/14/17 09:00 09/13/17 08:59 Metoprolol Succinate (Toprol Xl Tab) 50 mg DAILY PO 08/14/17 09:00 09/13/17 08:59 Pantoprazole Sodium (Protonix Tab) 40 mg DAILY PO 08/14/17 09:00 09/13/17 08:59 Rosuvastatin Calcium (Crestor Tab) 40 mg QPM PO 08/13/17 21:00 09/12/17 20:59 08/13/17 21:09 40 MG Tramadol HCl (Ultram Tab) 50 mg Q6 PRN PO 08/13/17 15:30 09/12/17 15:29 08/13/17 21:08 50 MG Zolpidem Tartrate (Ambien Tab) 10 mg HS PRN PO 08/13/17 15:30 09/12/17 15:29 Allopurinol (Zyloprim Tab) 300 mg DAILY PO 08/14/17 11:00 09/13/17 10:59 08/14/17 11:00 300 MG Ioversol (Optiray 320) 100 ml UD PRN IV 08/14/17 11:00 08/18/17 10:59 Enoxaparin Sodium (Lovenox Inj) 40 mg QAM SQ 08/15/17 09:00 09/14/17 08:59 Review of Systems Constitutional: No fever, No weight loss, No weakness Eyes: No worsening of vision Respiratory: + cough, + dyspnea on exertion Cardiovascular: No chest pain Abdomen: No pain, No nausea, No diarrhea, No constipation, No GI bleeding Musculoskeletal: No joint pain Hematologic / Lymphatic: No abnormal bleeding/bruising Physical Exam Date Time Temp Pulse Resp B/P (MAP) Pulse Ox O2 Delivery O2 Flow Rate FiO2 08/14/17 12:00 96 Room Air 08/14/17 11:55 36.8 79 18 123/76 (92) 93 Room Air 08/14/17 08:00 96 Room Air 08/14/17 07:53 36.9 73 18 134/68 (90) 96 Room Air 08/14/17 04:56 36.7 73 19 147/77 (100) 96 Room Air 08/14/17 04:00 Room Air 08/14/17 00:01 Room Air 08/13/17 20:07 36.9 72 16 147/69 (95) 93 Room Air 08/13/17 20:00 Room Air 08/13/17 17:16 36.9 70 20 147/79 Room Air 08/13/17 16:38 69 18 125/64 96 08/13/17 15:02 71 18 120/67 95 Room Air 08/13/17 13:58 76 20 131/67 95 Room Air 08/13/17 13:25 95 Room Air 08/13/17 13:23 75 General Appearance: WD/WN, no apparent distress ENT: hearing grossly normal, pharynx normal Neck: + adenopathy present, + JVD, + pertinent finding (swollen neck) Respiratory/Chest: normal breath sounds, no respiratory distress Cardiovascular: regular rate, rhythm, no edema Abdomen/GI: non tender, soft, no organomegaly Extremities/Musculoskelatal: no calf tenderness Neurologic/Psych: alert, oriented x 3 Skin: normal color Laboratory Results Last 24 Hours Test 08/13/17 13:25 08/13/17 14:20 08/13/17 17:18 08/13/17 20:40 White Blood Count 6.72 K/uL Red Blood Count 4.54 M/uL Hemoglobin 14.1 g/dL Hematocrit 41.9 % Mean Corpuscular Volume 92.3 fL Mean Corpuscular Hemoglobin 31.1 pg Mean Corpuscular Hemoglobin Concent 33.7 g/dl Platelet Count 195 K/uL Mean Platelet Volume 9.1 fL Neutrophils (%) (Auto) 62.1 % Lymphocytes (%) (Auto) 26.0 % Monocytes (%) (Auto) 8.6 % Eosinophils (%) (Auto) 2.7 % Basophils (%) (Auto) 0.3 % Neutrophils # (Auto) 4.17 K/uL Lymphocytes # (Auto) 1.75 K/uL Monocytes # (Auto) 0.58 K/uL Eosinophils # (Auto) 0.18 K/uL Basophils # (Auto) 0.02 K/uL RDW Standard Deviation 45.3 fL RDW Coefficient of Variation 13.4 % Immature Granulocyte % (Auto) 0.3 % Immature Granulocyte # (Auto) 0.02 K/uL Prothrombin Time 10.4 SECONDS Prothromb Time International Ratio 1.0 Activated Partial Thromboplast Time 28.0 SECONDS Partial Thromboplastin Ratio 1.1 Sodium Level 137 mmol/L Potassium Level 3.8 mmol/L Chloride Level 106 mmol/L Carbon Dioxide Level 26 mmol/L Anion Gap 5.0 mmol/L Blood Urea Nitrogen 13 mg/dl Creatinine 1.03 mg/dl Est Creatinine Clear Calc Drug Dose 85.4 ml/min Estimated GFR () 89.2 Estimated GFR (Non- 76.9 BUN/Creatinine Ratio 12.5 Random Glucose 114 mg/dl Calcium Level 8.8 mg/dl Total Bilirubin 0.6 mg/dl Direct Bilirubin 0.1 mg/dl Aspartate Amino Transf (AST/SGOT) 11 U/L Alanine Aminotransferase (ALT/SGPT) 14 U/L Alkaline Phosphatase 88 U/L Total Protein 7.5 gm/dl Albumin 3.6 gm/dl Lipase 182 U/L Thyroid Stimulating Hormone (TSH) 1.790 uIu/ml Urine Color YELLOW Urine Appearance CLEAR Urine pH 5.0 Urine Specific [place] > 1.045 Urine Protein NEG Urine Glucose (UA) NEG Urine Ketones NEG Urine Occult Blood TRACE Urine Nitrite NEG Urine Bilirubin NEG Urine Urobilinogen NEG Urine Leukocyte Esterase NEG Urine WBC (Auto) 1-5 /hpf Urine RBC (Auto) 0-4 /hpf Urine Hyaline Casts (Auto) 1-5 /lpf Urine Epithelial Cells (Auto) 10-20 /lpf Urine Bacteria (Auto) NEG Bedside Glucose 86 mg/dl 137 mg/dl Test 08/14/17 05:31 08/14/17 07:35 08/14/17 11:06 08/14/17 11:53 White Blood Count 6.62 K/uL Red Blood Count 4.41 M/uL Hemoglobin 13.5 g/dL Hematocrit 40.7 % Mean Corpuscular Volume 92.3 fL Mean Corpuscular Hemoglobin 30.6 pg Mean Corpuscular Hemoglobin Concent 33.2 g/dl Platelet Count 181 K/uL Mean Platelet Volume 9.3 fL Neutrophils (%) (Auto) 57.6 % Lymphocytes (%) (Auto) 23.4 % Monocytes (%) (Auto) 15.7 % Eosinophils (%) (Auto) 2.9 % Basophils (%) (Auto) 0.1 % Neutrophils # (Auto) 3.93 K/uL Lymphocytes # (Auto) 1.60 K/uL Monocytes # (Auto) 1.07 K/uL Eosinophils # (Auto) 0.20 K/uL Basophils # (Auto) 0.01 K/uL RDW Standard Deviation 45.4 fL RDW Coefficient of Variation 13.4 % Immature Granulocyte % (Auto) 0.3 % Immature Granulocyte # (Auto) 0.02 K/uL Nucleated RBC Absolute Count (auto) 0.00 K/uL Nucleated Red Blood Cells % 0.0 % Sodium Level 140 mmol/L Potassium Level 4.0 mmol/L Chloride Level 108 mmol/L Carbon Dioxide Level 28 mmol/L Anion Gap 4.0 mmol/L Blood Urea Nitrogen 13 mg/dl Creatinine 1.03 mg/dl Est Creatinine Clear Calc Drug Dose 85.4 ml/min Estimated GFR () 89.2 Estimated GFR (Non- 76.9 BUN/Creatinine Ratio 12.3 Random Glucose 89 mg/dl Estimated Average Glucose 137 mg/dl Hemoglobin A1c 6.4 % Calcium Level 8.7 mg/dl Bedside Glucose 103 mg/dl 201 mg/dl Uric Acid 4.8 mg/dl Lactate Dehydrogenase 192 U/L Test 08/14/17 12:29 08/13/17 CT neck with contrast: Impression: 1 conglomerate superior mediastinal and cervical lymphadenopathy and partially imaged right upper lobe lung mass. Findings are highly concerning for malignancy, particularly lymphoma or metastatic lung cancer. 2. Massive lymph adenopathy partially surrounds the trachea, encases the innominate artery and severely compresses and may invade the superior vena cava. 3. Diffuse subcutaneous, retropharyngeal, hypopharyngeal and laryngeal edema may be secondary to venous congestion. CT chest from 08/13/17: Thyroid: Imaged portions of the thyroid gland are normal in size and attenuation. Thoracic aorta: There is mild atherosclerotic calcification of the thoracic aorta, which is normal in caliber and demonstrates standard 3-vessel arch anatomy. Heart: The heart is normal in size and there is a small pericardial effusion. The coronary arteries are densely calcified. Lungs and pleural spaces: Mild emphysematous change is identified. There are small pleural effusions associated atelectasis. No airspace consolidation is seen typical for pneumonia. There is a multilobulated/spiculated mass lesion in the right upper lobe in the suprahilar region. This measures 4.0 x 3.0 x 2.6 cm. Numerous additional small nodules are seen in the right upper lobe. Intralobular septal thickening and nodularity are seen in the right upper lobe. No lesions are seen in the right middle or lower lobes, and there is no left-sided pulmonary lesion identified. Lower neck: Cervical adenopathy is partially visualized. A left cervical chain node seen on image #2 measures 3.6 x 3.3 cm. Mediastinum: There is bulky mediastinal lymphadenopathy. A right paratracheal node on image #111 measures 3.6 x 3.0 cm. Confluent anterior/superior mediastinal adenopathy measures approximately 4.5 x 10 cm as seen on image #77 Julia: Not well assessed without IV contrast. There is probable right hilar adenopathy. Axillae: There is no axillary lymphadenopathy. Upper abdomen: Bilateral adrenal nodules are indeterminant and measure up to 2.8 cm. Findings suggest hepatic steatosis. A tiny hiatal hernia is observed. Excreted contrast is seen within the renal collecting system bilaterally. Skeletal structures: The skeletal structures are osteopenic. No lytic or blastic bony lesions are seen. CT abdomen/pelvis from 08/14/17: Visualized portions of the lower chest demonstrate small bilateral pleural effusions. No pneumatosis, free air or portal venous gas is present. No suspicious osseous lesions are identified by CT. There are postoperative findings within the spine. There are multiple subtle hypodense right hepatic lobe lesions including a 1.6 cm segment 5 lesion and a 1.4 cm segment 6 lesion. Note is made of multiple intermediate attenuation bilateral adrenal nodules, including a 2.2 cm right adrenal nodule, a 2.5 cm nodule within the medial limb of the left adrenal gland and a 1.6 cm nodule within the lateral limb of the left adrenal gland. The spleen, kidneys and pancreas are normal. Caliber and wall thickness of small and large bowel are normal. The appendix is normal. There is sigmoid diverticulosis without evidence for acute diverticulitis. No abdominal or pelvic lymphadenopathy is present. There is extensive aortoiliac atherosclerotic plaque with stenosis versus occlusion of the proximal bilateral common iliac arteries. The abdominal aorta is ectatic but not aneurysmally dilated. Assessment & Plan 1. 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 Sanchez performed biopsy on left supraclavicular adenopathy, spoke with pathologist, Dr. Weinstein who is very confident this is SCLC and that a final report should be available Thursday when IHC is done * Patient requires staging work up: CT abd/pelvis, bone scan and brain MRI as well as LDH and uric acid for bulky disease * CT abd/pelvis showing indeterminate lesions in liver and adrenals * LDH and uric acid both came back normal * Brain MRI and bone scan pending * Patient started on allopurinol 300 mg daily in an effort to prevent tumor lysis syndrome * Dr. Germain would like to proceed with cisplatin/etoposide today in an effort to relieve SVC syndrome * Please see chemotherapy orders for pretreatment meds, hydration and chemo doses * Cisplatin day 1, etoposide days 1-3 * Patient was counseled on side effects of his chemotherapy regimen including but not limited to nephrotoxicity, ototoxicity, neuropathy, N/V/D, allergic reaction, bone marrow suppression with need for supportive transfusion, infections, taste change * Patient was agreeable to starting chemotherapy today- Dr. Germain obtained consent * Patient will require regular lab monitoring- CBCD daily, BMP with uric acid and phosphorus q 12 h for first 48-72 hrs to monitor for tumor lysis * Dr. Germain of Radiation Oncology met with patient- plan is to start XRT today as well to alleviate SVC syndrome Thanks for the consult. Dr. Germain is attending medical oncologist- please see his addendum. I performed history and physical examination of the patient. I have discussed the patient's case, impression and plan with Galilea Parikh PA-C. Her note reflects my findings and plan. In summary, he is a 62-year-old male, has history of increasing shortness of breath, hoarseness of voice, bilateral neck swelling off of few months duration which has progressively worsened, imaging study showed right upper lobe lung mass measuring 4 cm, mediastinal hilar lymphadenopathy, supraclavicular lymphadenopathy, FNA from the left suprahilar lymph node, preliminary report suggests small cell carcinoma of the lung, overall clinical picture appears to be SVC syndrome, I saw him at bedside in the afternoon, decided to proceed with chemotherapy with cisplatin etoposide on any vision basis, I discussed with him regarding diagnostic workup, overall treatment goal, treatment schedule with cisplatin and etoposide, he agreed for that, he signed the consent for that. Also seen by radiation oncology Dr. Germain, will proceed for radiation treatment to the mediastinal mass, will get additional staging workup in the form of CT scan of the abdomen, pelvis, brain MRI, bone scan. Chemotherapy schedule: -cisplatin at 75 mg/m2 on day 1. -etoposide at 100 mg/m2 daily for 3 days Next cycle of chemotherapy in 3 weeks. Started on allopurinol, will continue allopurinol for about 1 month to prevent the tumor lysis. Watch for tumor lysis. Dr. Sahil Germain Hem/Onc
--- NOTE | 2017-08-14 13:35 | Medical Consult ---
Consultation Note Date of Service Aug 14, 2017. Consultation Note Attempted to see pt in room today, however, pt had gone for testing and was not expected back soon. After review of pt's imaging by Dr Jesus, no urgent vascular intervention required. Will see pt Thursday. Please call if needed prior.
--- NOTE | 2017-08-14 13:50 | DIAGNOSTIC IMAGING REPORT ---
CT OF THE ABDOMEN AND PELVIS WITH CONTRAST CLINICAL HISTORY: Lung cancer with SVC syndrome. Staging evaluation. COMPARISON STUDY: None. TECHNIQUE: Following IV administration of 93 mL of Optiray-320, axial images of the abdomen and pelvis were obtained from the lung bases to the proximal femurs. Images were reviewed in the axial, sagittal, and coronal planes. IV contrast was administered without complication. A dose lowering technique was utilized adhering to the principles of ALARA. Oral contrast was administered. CT DOSE: 724.36 mGy.cm FINDINGS: Visualized portions of the lower chest demonstrate small bilateral pleural effusions. No pneumatosis, free air or portal venous gas is present. No suspicious osseous lesions are identified by CT. There are postoperative findings within the spine. There are multiple subtle hypodense right hepatic lobe lesions including a 1.6 cm segment 5 lesion and a 1.4 cm segment 6 lesion. Note is made of multiple intermediate attenuation bilateral adrenal nodules, including a 2.2 cm right adrenal nodule, a 2.5 cm nodule within the medial limb of the left adrenal gland and a 1.6 cm nodule within the lateral limb of the left adrenal gland. The spleen, kidneys and pancreas are normal. Caliber and wall thickness of small and large bowel are normal. The appendix is normal. There is sigmoid diverticulosis without evidence for acute diverticulitis. No abdominal or pelvic lymphadenopathy is present. There is extensive aortoiliac atherosclerotic plaque with stenosis versus occlusion of the proximal bilateral common iliac arteries. The abdominal aorta is ectatic but not aneurysmally dilated. IMPRESSION: 1. Multiple subtle hypodense right hepatic lobe lesions which are indeterminate but worrisome for metastatic disease. These measure up to 1.6 cm. 2. Indeterminate bilateral adrenal nodules. These may reflect metastatic disease or lipid poor adenomas. 3. No abdominal or pelvic lymphadenopathy. 4. Extensive aortoiliac atherosclerotic plaque with stenosis versus occlusion of the bilateral common iliac arteries. Electronically signed by: Mike Griffin M.D. 08/14/2017 1:49 PM Dictated Date/Time: 08/14/2017 1:30 PM
--- NOTE | 2017-08-14 14:07 | Radiation Oncology Consult ---
Radiation Oncology Consult Date / Reason Aug 14, 2017. Physicians Medical Oncologist: Dr. Sahil Germain Radiation Oncologist: Dr. Sae Germain Surgeon: Dr. Chung Sanchez Diagnosis (1) Small cell lung cancer Permanent Comment: Final pathology pending; prelim pathology as per Dr. Sanchez Last Edited By: Sae Germain on Aug 14, 2017 13:47 History of Present Illness I am seeing Jessica in consultation at the request of Dr. Sahil Germain. The patient's was also present during the consultation. ECOG PS: 1 - 2 Mr. Lopez is a 62-year-old gentleman who recently presented with a several month history of increasing dysphasia, hoarseness, sore throat, bilateral neck swelling and bilateral neck pain. The patient presented to the emergency department after having a stat CT scan completed by his primary care physician. 08/13/2017 --- chest x-ray --- IMPRESSION: 1. A 2.5 cm nodular density projects of the right upper lobe. Correlation with chest CT is recommended to assess for pulmonary lesion. 2. There is apparent widening of the mediastinum. This could be artifactual or could potential represent lymphadenopathy. This can also be assessed by CT. 3. Bibasilar atelectasis is observed. No airspace consolidation is seen typical for pneumonia. 08/13/2017 --- CT of chest --- IMPRESSION: 1. There is a 4.0 cm right upper lobe mass lesion. This should be considered neoplasm until proven otherwise. 2. Additional subcentimeter nodules are seen in the right upper lobe with associated intralobular septal thickening. This likely represents lymphangitic spread of tumor. 3. There is bulky mediastinal lymphadenopathy, left cervical adenopathy, and probable right hilar adenopathy. This should also be considered neoplasm until proven otherwise. 4. Small pleural effusions are identified. 5. There is a small pericardial effusion. 6. Bilateral adrenal nodules are indeterminant. 7. Emphysema. 8. Additional findings as above. 08/14/2017 --- FNA ultrasound-guided biopsy of left neck mass --- preliminary report is consistent with small cell lung carcinoma 08/14/2017 --- medical oncology consultation by Dr. Sahil Germain --- recommending completion of staging workup including CT of abdomen/pelvis, bone scan and MRI of brain. Dr. Germain also recommends upfront chemotherapy after confirming diagnosis with pathology utilizing cis-tununak/etoposide chemotherapy. Dr. Germain also recommends consideration of radiation therapy to alleviate the patient's impending SVC syndrome. We are now seeing the patient in consultation discuss role of radiation therapy. Currently, the patient does continue to complain of some dysphasia as well as swelling in the neck. He denies any fevers, chills or night sweats. Denies any hemoptysis. Past History Past Medical/Surgical History: Diabetes Type 1, Heart Disease Social History Smoking Status: Never Smoker Hx Tobacco Use In Past Year?: No Do You Dip or Chew Tobacco: No Hx Alcohol Use: Yes (socially) Hx Substance Use : No Allergies Coded Allergies: Naproxen (Verified Allergy, Unknown, ., 08/13/17) Home Medications Scheduled Amlodipine (Norvasc), 10 MG PO DAILY Aspirin (Aspirin Ec), 81 MG PO DAILY Fluticasone Propionate (Nasal) (Flonase Allergy Relief), 2 SPRAY DSETIN DAILY Gabapentin (Neurontin), 300 MG PO TID Glimepiride (Glimepiride), 1 MG PO DAILY Hydrochlorothiazide (Hctz), 1 CAP PO DAILY Levothyroxine Sodium (Levothyroxine Sodium), 75 MCG PO DAILY Lisinopril (Zestril), 40 MG PO DAILY Melatonin (Kp Melatonin), 1 TAB PO HS Metformin Hcl (Glucophage), 1,000 MG PO BID Metoprolol Succ (Toprol Xl) (Toprol-Xl), 50 MG PO DAILY Pantoprazole Sodium (Protonix), 1 TAB PO DAILY Rosuvastatin Calcium (Crestor), 40 MG PO QPM Scheduled PRN Nitroglycerin (Nitrostat), 0.4 MG UT UD PRN for Chest Pain Tramadol (Ultram), 50 MG PO Q6 PRN for Pain Zolpidem Tartrate (Zolpidem Tartrate), 10 MG PO HS PRN for Sleep Review of Systems Ear/Hearing: Ear Side: Bilateral Hearing Ability: Hard of Hearing Hearing Aid: None Edema: Present?: Yes Location Body Site Modifier: Right Type: Non-pitting Physical Exam Height: 6 (Feet) 2.00 (Inches) 188.0 (Centimeters) 1.8796 (Meters) Weight: 208 (Pounds) 12.4 (Ounces) 94.700 (Kilograms) 89266.000 (Grams) Date Time Temp Pulse Resp B/P (MAP) Pulse Ox O2 Delivery O2 Flow Rate FiO2 08/14/17 12:00 96 Room Air 08/14/17 11:55 36.8 79 18 123/76 (92) 93 Room Air 08/14/17 08:00 96 Room Air 08/14/17 07:53 36.9 73 18 134/68 (90) 96 Room Air 08/14/17 04:56 36.7 73 19 147/77 (100) 96 Room Air 08/14/17 04:00 Room Air 08/14/17 00:01 Room Air 08/13/17 20:07 36.9 72 16 147/69 (95) 93 Room Air 08/13/17 20:00 Room Air 08/13/17 17:16 36.9 70 20 147/79 Room Air 08/13/17 16:38 69 18 125/64 96 08/13/17 15:02 71 18 120/67 95 Room Air 08/13/17 13:58 76 20 131/67 95 Room Air General Appearance: no apparent distress Head: normocephalic Eyes: normal inspection ENT: + pertinent finding (Bilateral soft tissue edema and bilateral lymphadenopathy noted. ) Neck: + adenopathy present Respiratory/Chest: chest non-tender, lungs clear, normal breath sounds, no respiratory distress Cardiovascular: regular rate, rhythm, no edema, no gallop, no JVD, no murmur Back: normal inspection Extremities: normal inspection Neurologic/Psych: crystal slicer II-XII nml as tested, alert, oriented x 3 Skin: normal color, warm/dry, no rash Pain Management Patient Reports Pain: Yes Side: Bilateral Pain Location: Neck Patient Preferred Pain Scale: 0 - 10 Initial Pain Intensity: 8.0 Level of Consciousness: Spontaneously Alert Relief Measures: Medication - Injection Pain Medication Comment: Patient NPO and perfers to wait until eating this afternoon Pain Intervention: See MAR Pain Management Plan Refer to inpatient pain management plan. Laboratory Laboratory Results: were reviewed Pathology Pathology Results: were reviewed, and pertinent findings noted in HPI, pending (Preliminary verbal report for biopsy of leck neck mass reveals small cell lung carcinoma) Imaging Imaging Studies: were reviewed, and pertinent findings noted in HPI Assessment & Recommendations Assessment: Mr. Lopez is a 62-year-old gentleman with limited versus extensive stage small cell lung carcinoma (final pathology diagnosis pending). The patient has bilateral neck swelling most likely due to compression of upper mediastinal vasculature, potentially including the superior vena cava. The patient has been evaluated by medical oncology, Dr. Sahil Germain, who has recommended completion of the staging workup as well as initiating chemotherapy with consideration of radiation therapy during his current admission. We now seeing the patient in consultation discuss role of radiation therapy. Recommendation: Localized radiation therapy to the upper mediastinal mass to help palliate the patient's potential SVC syndrome/bilateral neck edema. Plan: 1. CT simulation today and first treatment today as well. Consent obtained. 2. Follow up with staging studies and determine role of radiation therapy ( palliative versus definitive) based on disease extent (extensive versus limited) . If the patient has limited stage disease, treatment esquivel will need to be modified to incorporate all disease given the fact that we are only treating the mediastinal mass where the patient is currently having symptoms. I have discussed the case with Dr. Sahil Germain who is in agreement with this plan. 3. Chemotherapy underneath the supervision of Dr. Sahil Germain. 4. Patient and family encouraged to call us with any further questions or concerns. Rationale/Explanation: We have explained the indications, alternatives, benefits , risks and side effects of radiation therapy to the lung. We have explained the most common side effects which include but are not limited to skin erythema , skin break down, pulmonary fibrosis, adhesion development, radiation pneumonitis, rib fracture, heart failure and heart disease, esophagitis, development of fistula, fatigue and development of secondary malignancy. We have explained the CT simulation process and treatment planning. We explained what to expect before, during and after treatment on a regular basis. The patient understands and would be willing to consent to treatment. The patient and family had multiple questions which were answered to their full satisfaction. Thank you for allowing us to participate in the care of this patient. This chart was completed in part utilizing [employer] Speech Voice Recognition software. Attempts were made to minimize the grammatical errors, random word insertions, pronoun errors and incomplete sentences. Any formal questions or concerns about the content, text or information contained within the body of this dictation should be directly addressed to the provider for clarification. Sae Germain MD Department of Radiation Oncology [facility] Total Time In Consultation I spent 30 minutes examining and counseling the patient. I spent 15 minutes completing this note. OVEN UNLOADER Copy To Sahil Germain M.D.; Jose Luis Lacey MD; Chung Sanchez MD
[2017-08-14 14:40] LABS: ALBUMIN 3.3 gm/dl (3.4-5.0); CALCIUM 8.4 mg/dl (8.5-10.1)
[2017-08-14] MEDS: ONDANSETRON INJ 2 MG/ML 2 ML VIAL IV PRN (16:15)
[2017-08-14] MEDS: SODIUM CHLORIDE 0.9% 1000ML 1,000 ML IV SCH (16:15)
[2017-08-14] MEDS ORDERED: FOSAPREPITANT DIMEGLUMINE INJ 150 MG in SODIUM CHLORIDE 0.9% 150ML 145 ML IV ONE (17:30)
[2017-08-14] MEDS ORDERED: CISPLATIN IV SCH (18:00)
[2017-08-14] MEDS ORDERED: SODIUM CHLORIDE 0.9% IV SCH (18:00)
[2017-08-14] MEDS: SODIUM CHLORIDE 0.9% IV SCH ×2 (18:47→20:48)
[2017-08-14] MEDS: ONDANSETRON IV SCH (18:47)
[2017-08-14] MEDS: DEXAMETHASONE IV SCH (18:47)
[2017-08-14] MEDS ORDERED: SOD CHL IV SCH ×2 (19:30)
[2017-08-14] MEDS ORDERED: ETOPOSIDE IV SCH ×2 (19:30)
[2017-08-14] MEDS ORDERED: POLYOLEFIN IV SCH ×2 (19:30)
[2017-08-14] MEDS: ETOPOSIDE IV SCH (20:48)
[2017-08-14] MEDS ORDERED: POTASSIUM CHLORIDE IV ONE (21:00)
[2017-08-14] MEDS ORDERED: FUROSEMIDE INJ 20 MG in SYRINGE 0 ML IV SCH (21:00)
[2017-08-14] MEDS ORDERED: [UNRECOGNIZED DRUG - OTHER] IV ONE (21:00)
[2017-08-14] MEDS ORDERED: MAG SULFATE IV ONE (21:00)
[2017-08-14] MEDS: ROSUVASTATIN CALCIUM 20 MG TAB PO SCH (22:10)
[2017-08-15] VITALS (9 sets, daily range): BP systolic 123–167; BP diastolic 74–86; PULSE 66–89; TEMP 36.3–37.1; O2SAT 91–97
[2017-08-15 05:48] LABS: HEMOGLOBIN 13.9 g/dL (14.0-18.0); IG# 0.01 K/uL (0.00-0.02); LYMPH % 9.4 %; LYMPH ABS # 0.44 K/uL (1.2-3.4); MEAN CELL VOLUME 90.7 fL (80-100); MEAN CORPUSCULAR HEMOGLOBIN 30.8 pg (25-34); MEAN CORPUSCULAR HGB CONC 33.9 g/dl (32-36); MEAN PLATELET VOLUME 9.3 fL (7.4-10.4); MONO % 3.2 %; MONO ABS # 0.15 K/uL (0.11-0.59); NEUT % 87.2 %; NEUT ABS # 4.08 K/uL (1.4-6.5); PLATELET COUNT 179 K/uL (130-400); RED CELL DISTRIBUTION WIDTH SD 43.1 fL (36.4-46.3); WHITE BLOOD COUNT 4.68 K/uL (4.8-10.8)
[2017-08-15 06:23] LABS: ALBUMIN 3.1 gm/dl (3.4-5.0); CALCIUM 7.9 mg/dl (8.5-10.1); CREATININE 1.06 mg/dl (0.60-1.40); POTASSIUM 3.8 mmol/L (3.5-5.1); URIC ACID 4.3 mg/dl (2.6-7.2)
[2017-08-15 06:26] LABS: TOTAL PROTEIN 7.2 gm/dl (6.4-8.2)
[2017-08-15] MEDS: LEVOTHYROXINE 75 MCG TAB PO SCH (06:46)
[2017-08-15] MEDS: MoRPHine SULFATE 2 MG/ML CARP IV PRN ×2 (06:49→20:37)
[2017-08-15] MEDS: METOPROLOL SUCC 50MG EXT REL TAB PO SCH (08:41)
[2017-08-15] MEDS: GABAPENTIN 300 MG CAP PO SCH ×3 (08:41→20:39)
[2017-08-15] MEDS: ALLOPURINOL 300 MG TAB PO SCH (08:41)
[2017-08-15] MEDS: PANTOprazole SOD 40 MG TAB PO SCH (08:41)
[2017-08-15] MEDS: LISINOPRIL 40 MG TAB PO SCH (08:42)
[2017-08-15] MEDS: ASPIRIN 81 MG ECTAB PO SCH (08:42)
[2017-08-15] MEDS: AMLODIPINE BESYLATE 5 MG TAB PO SCH (08:43)
[2017-08-15] MEDS: HYDROCHLOROTHIAZIDE 25 MG TAB PO SCH (08:43)
[2017-08-15] MEDS: ENOXAPARIN 40 MG/0.4 ML SYR SQ SCH (08:46)
--- NOTE | 2017-08-15 08:50 | SURGERY PROGRESS NOTE ---
DATE: 08/14/2017 I saw Mr. Lopez today. I discussed his case in detail yesterday with Dr. Dashawn Smith from radiology and they performed a biopsy this morning. I discussed his case with Dr. Max Weinstein from pathology and this appears to represent a small cell lung carcinoma. I then discussed his case with medical oncology from Dr. Sahil Germain as well as radiation oncology with Dr. Sae Germain. He has small cell lung carcinoma and is symptomatic. We are going to get him set up to be treated sooner rather than later and in fact Dr. Sae Germain is going to set him up for a radiation starting today. I had a long talk with the patient and his . He does not need an intervention in his vena cava at this point. My hope is with the small cell lung carcinoma, we are going to see him respond quickly to radiation. I am a bit concerned about his swallowing and we will get speech and swallowing to evaluate him, but I think we should probably give him a bit more time before a video thoracoscopic study as I believe he is going to improve with treatment.
[2017-08-15] MEDS: INSULIN ASPART 100 UNITS/ML 3 ML PEN SC SCH ×4 (08:51→20:45)
[2017-08-15] MEDS: FLUTICASONE PROPIONATE NA SPR 16 GM BTL NAE SCH (09:34)
--- NOTE | 2017-08-15 09:35 | SURGERY PROGRESS NOTE ---
DATE: 08/15/2017 SUBJECTIVE: Mr. Lopez is complaining of some pain in his neck area. He underwent a CT simulation and his first treatment yesterday under the direction of Dr. Sae Germain. He is also seen by Dr. Baxter from medical oncology. He has has started chemotherapy and hopefully he responds quickly. Dr. Germain and Dr. Germain's inputs are greatly appreciated. [facility]
[2017-08-15] MEDS ORDERED: GADAVIST IV PRN (10:30)
[2017-08-15] MEDS: SODIUM CHLORIDE 0.9% 1000ML 1,000 ML IV SCH (10:39)
--- NOTE | 2017-08-15 10:54 | DIAGNOSTIC IMAGING REPORT ---
BRAIN COMBO CLINICAL HISTORY: SCLC, evlaluate for intrcranial mets, baseline exam lung carcinoma COMPARISON STUDY: No previous studies for comparison. TECHNIQUE: Utilizing a 1.5 Uma magnet and dedicated coil, multiplanar, multiecho imaging of the brain was performed pre and postcontrast administration. IV administration of 6 mL of Gadavist contrast was uneventful. FINDINGS: Diffusion images demonstrate multiple foci of increased signal throughout cerebellar as well as cerebral hemispheres. This includes the occipital lobes bilaterally, central left cerebellum, cortical margin left posterior parietal lobe, as well as left superior parietal lobe.. Signal characteristics the cerebellar as well as cerebral hemispheres indicate mild degree of age-related atrophy and minimal chronic small vessel change. Postcontrast images demonstrate several punctate focus of postcontrast enhancement. This includes a small focus of the central left parietal lobe, small focus of the right optic radiations, as well as one and possibly 2 small punctate foci of the central right cerebellum and peripheral right parietal occipital lobe junction. There is also a cortical focus of postcontrast enhancement of the left posterior parieto-occipital junction. These regions show no significant surrounding edema. Ventricular system is midline. There is no significant dural or meningeal enhancement. Sella and parasellar regions are unremarkable. IMPRESSION: Multiple foci of punctate enhancement throughout the cerebellar as well as cerebral hemispheres. 2. This is highly suspect for developing metastatic change. 3. Age-related atrophy and chronic small vessel change. 4. No significant mass effect at this time. The above report was generated using voice recognition software. It may contain grammatical, syntax or spelling errors. Electronically signed by: Irineo Alexander M.D. 08/15/2017 10:53 AM Dictated Date/Time: 08/15/2017 10:40 AM
[2017-08-15] MEDS ORDERED: MAGNESIUM SULFATE 1GM / D5W 100 ML IV STA (12:28)
--- NOTE | 2017-08-15 12:30 | Progress Note ---
Internal Med Progress Note Date of Service: Aug 15, 2017. Provider Documentation: SUBJECTIVE: Seen and examined at bedside Complains of neck pain and YOUNG Still has discomfort to solid food intake + hoarseness Denies chest pain, nausea, abd pain Family at bedside No other complaints OBJECTIVE: Vital Signs-as noted below Physical Exam: General Appearance:Moderately built and nourished, no apparent distress Head: normocephalic, Atraumatic Neck:+ swelling, tender to palpate Eyes: normal inspection, EOMI, PERRL Neck: supple, Trachea midline Respiratory/Chest: Decreased breath sounds, CTA Cardiovascular: S1, S2, No murmur Abdomen/GI:Soft, Non tender, Bowel sounds present Extremities/Musculoskelatal:normal inspection, no edema Neurologic/Psych:AAOX3, grossly no focal neurological deficits Skin: normal color, warm Lab data as noted below. ASSESSMENT & PLAN: Metastatic small cell carcinoma of the lung:Final Pathology report pending Possible SVC syndrome Dysphagia:Dental soft S/P ultrasound-guided fine-needle aspiration of a left neck mass/lymph node. Pathology:pending CT chest as below CT ABD: Suggestive of metastatic hepatic, adrenal disease. Extensive aortoiliac atherosclerotic plaque with stenosis versus occlusion of the bilateral common iliac arteries Brain MRI:suggestive metastatic disease as well Appreciate Oncology/Radiation oncology Help Chemotherapy with Cisplatin and Etoposide as per Continue allopurinol to prevent tumor lysis Palliative radiation for SVC syndrome and metastatic disease Appreciate CT surgery help Speech and swallow eval done pain control DM II H A1c: 6.4 Hold oral agent continue ISS, Lantus monitor BGs HTN Stable Continue amlodipine, lisinopril, metoprolol, HCTZ Hypothyroidism: TSH: normal Continue levothyroxine CAD S/P Stent to LAD Continue Aspirin, statin, beta-fox Chronic back pain: Continue gabapentin GERD Continue PPI DVT Px: Lovenox SQ Code Status: Full code Disposition: Monitor in Tele Follows with Dr Pérez for routine care PROCEDURES: CT chest: 1. There is a 4.0 cm right upper lobe mass lesion. This should be considered neoplasm until proven otherwise. 2. Additional subcentimeter nodules are seen in the right upper lobe with associated intralobular septal thickening. This likely represents lymphangitic spread of tumor. 3. There is bulky mediastinal lymphadenopathy, left cervical adenopathy, and probable right hilar adenopathy. This should also be considered neoplasm until proven otherwise. 4. Small pleural effusions are identified. 5. There is a small pericardial effusion. 6. Bilateral adrenal nodules are indeterminant. CT ABD: 1. Multiple subtle hypodense right hepatic lobe lesions which are indeterminate but worrisome for metastatic disease. These measure up to 1.6 cm. 2. Indeterminate bilateral adrenal nodules. These may reflect metastatic disease or lipid poor adenomas. 3. No abdominal or pelvic lymphadenopathy. 4. Extensive aortoiliac atherosclerotic plaque with stenosis versus occlusion of the bilateral common iliac arteries. Brain MRI: 1.Multiple foci of punctate enhancement throughout the cerebellar as well as cerebral hemispheres. 2. This is highly suspect for developing metastatic change. 3. Age-related atrophy and chronic small vessel change. 4. No significant mass effect at this time. Vital Signs: Date Time Temp Pulse Resp B/P (MAP) Pulse Ox O2 Delivery O2 Flow Rate FiO2 08/15/17 08:40 Room Air 08/15/17 07:55 36.5 66 18 145/75 (98) 94 Room Air 08/15/17 04:56 36.5 73 20 151/79 (103) 91 Room Air 08/15/17 00:20 36.3 89 20 123/86 (98) 94 Nasal Cannula 2.0 08/15/17 00:00 96 Nasal Cannula 2.0 Humidified Oxygen 08/14/17 21:30 36.8 68 18 148/87 (107) 94 Nasal Cannula 2.0 Humidified Oxygen 08/14/17 21:07 36.8 65 18 154/76 (102) 94 Nasal Cannula 2.0 Humidified Oxygen 08/14/17 21:00 88 Room Air 08/14/17 20:55 36.7 64 18 147/81 (103) 93 Room Air 08/14/17 20:10 36.9 66 18 146/80 (102) 93 Room Air 08/14/17 19:47 36.9 67 18 146/68 (94) 90 08/14/17 19:21 36.8 66 18 146/73 (97) 94 Room Air 08/14/17 16:00 Room Air 08/14/17 14:57 37.0 91 18 133/72 (92) 92 Lab Results: Results Past 24 Hours Test 08/14/17 13:51 08/14/17 17:27 08/14/17 20:14 08/15/17 05:31 Range/Units Sodium Level 138 140 136-145 mmol/L Potassium Level 4.0 3.8 3.5-5.1 mmol/L Chloride Level 103 105 98-107 mmol/L Carbon Dioxide Level 30 28 21-32 mmol/L Anion Gap 5.0 6.0 3-11 mmol/L Blood Urea Nitrogen 12 13 7-18 mg/dl Creatinine 1.00 1.06 0.60-1.40 mg/dl Est Creatinine Clear Calc Drug Dose 87.9 83.0 ml/min Estimated GFR () 92.4 86.1 Estimated GFR (Non- 79.7 74.3 BUN/Creatinine Ratio 12.3 12.4 10-20 Random Glucose 114 166 70-99 mg/dl Calcium Level 8.4 7.9 8.5-10.1 mg/dl Magnesium Level 1.7 1.6 1.8-2.4 mg/dl Total Bilirubin 0.5 0.5 0.2-1 mg/dl Aspartate Amino Transf (AST/SGOT) 11 11 15-37 U/L Alanine Aminotransferase (ALT/SGPT) 14 13 12-78 U/L Alkaline Phosphatase 87 86 45-117 U/L Total Protein 7.0 7.2 6.4-8.2 gm/dl Albumin 3.3 3.1 3.4-5.0 gm/dl Globulin 3.7 4.1 2.5-4.0 gm/dl Albumin/Globulin Ratio 0.9 0.8 0.9-2 Bedside Glucose 102 149 70-99 mg/dl White Blood Count 4.68 4.8-10.8 K/uL Red Blood Count 4.52 4.7-6.1 M/uL Hemoglobin 13.9 14.0-18.0 g/dL Hematocrit 41.0 42-52 % Mean Corpuscular Volume 90.7 80-100 fL Mean Corpuscular Hemoglobin 30.8 25-34 pg Mean Corpuscular Hemoglobin Concent 33.9 32-36 g/dl Platelet Count 179 130-400 K/uL Mean Platelet Volume 9.3 7.4-10.4 fL Neutrophils (%) (Auto) 87.2 % Lymphocytes (%) (Auto) 9.4 % Monocytes (%) (Auto) 3.2 % Eosinophils (%) (Auto) 0.0 % Basophils (%) (Auto) 0.0 % Neutrophils # (Auto) 4.08 1.4-6.5 K/uL Lymphocytes # (Auto) 0.44 1.2-3.4 K/uL Monocytes # (Auto) 0.15 0.11-0.59 K/uL Eosinophils # (Auto) 0.00 0-0.5 K/uL Basophils # (Auto) 0.00 0-0.2 K/uL RDW Standard Deviation 43.1 36.4-46.3 fL RDW Coefficient of Variation 13.0 11.5-14.5 % Immature Granulocyte % (Auto) 0.2 % Immature Granulocyte # (Auto) 0.01 0.00-0.02 K/uL Uric Acid 4.3 2.6-7.2 mg/dl Lactate Dehydrogenase 166 87-241 U/L Test 08/15/17 07:25 08/15/17 11:31 Range/Units Bedside Glucose 156 256 70-99 mg/dl
[2017-08-15] MEDS: ONDANSETRON IV SCH (12:44)
[2017-08-15] MEDS: DEXAMETHASONE IV SCH (12:44)
[2017-08-15] MEDS: SODIUM CHLORIDE 0.9% IV SCH ×2 (12:44→13:19)
[2017-08-15] MEDS: ETOPOSIDE IV SCH (13:19)
[2017-08-15] MEDS ORDERED: FUROSEMIDE INJ 10 MG in SYRINGE 0 ML IV ONE (14:57)
--- NOTE | 2017-08-15 15:10 | Hematology/Oncology Prog Note ---
Hematology/Onc Progress Note Date of Service Aug 15, 2017. Subjective I saw him at bedside, his was also at bedside, today he received cycle 1 day 2 of chemotherapy with IV etoposide, yesterday he completed day 1 of chemotherapy with cisplatin etoposide. Tolerated well, no increasing nausea or vomiting, no fever, has some shortness of breath, his O2 saturation dropped down to around 80s during the nighttime, presently he is on oxygen therapy at 2 L/min, while he was awake, or received has improved to around 97%, hemodynamically he has remained stable. Blood workup done 08/07/2017: -WBC 4600, H&H of 13.9/41, Platelet count of 179,000 -BUN/Creat: 13/1.0, calcium 7.9, magnesium 1.6, normal liver function test. -Brain MRI done on 08/15/2017--> multiple foci of punctate enhancement throughout the cerebellum and cerebrum, highly suspicious for developing metastatic disease. No significant mass effect or vasogenic edema noted. -CT scan of the abdomen and pelvis done on 08/14/2017--> multiple subtle hypodense lesions noted in the right lobe of the liver which are indeterminate but worrisome for metastatic disease, the largest one measuring 1.6 cm. Indeterminate bilateral adrenal gland nodules. No intra-abdominal lymphadenopathy. Extensive atherosclerotic changes noted, stenosis versus occlusion of the bilateral common iliac arteries noted. I reviewed with the patient as well as his regarding the additional staging workup done which shows suspicious findings in the brain as well as in the liver, has extensive atherosclerotic arterial disease but no rest pain in the legs. Would like to Lasix 10 mg IV x1 dose today. Tomorrow he will receive cycle 1 day 3 of IV etoposide. I will check with Dr. Germain (radiation oncologist) regarding brain lesions. He does not require emergent treatment, does not require steroid therapy. Will continue IV magnesium supplementation. I discussed with them regarding the overall treatment goal which would be palliative and not curative, it appears that he has stage IV disease. Vital Signs Vital Signs Past 12 Hours Date Time Temp Pulse Resp B/P (MAP) Pulse Ox O2 Delivery O2 Flow Rate FiO2 08/15/17 14:33 36.3 77 22 167/78 (107) 93 Nasal Cannula 2.0 08/15/17 13:34 70 22 154/79 (104) 97 Nasal Cannula 2.0 08/15/17 13:21 36.6 76 142/78 (99) 91 Room Air 08/15/17 08:40 Room Air 08/15/17 07:55 36.5 66 18 145/75 (98) 94 Room Air 08/15/17 04:56 36.5 73 20 151/79 (103) 91 Room Air
[2017-08-15] MEDS: ROSUVASTATIN CALCIUM 20 MG TAB PO SCH (20:39)
[2017-08-15] MEDS: INSULIN GLARGINE SOLOSTAR 100 UNITS/ML 3 ML PEN SC SCH (20:44)
[2017-08-16] VITALS (7 sets, daily range): BP systolic 138–153; BP diastolic 67–81; PULSE 56–68; TEMP 36.5–36.9; O2SAT 94–96
[2017-08-16] MEDS: MoRPHine SULFATE 2 MG/ML CARP IV PRN ×4 (05:54→19:46)
[2017-08-16] MEDS: LEVOTHYROXINE 75 MCG TAB PO SCH (05:57)
[2017-08-16 06:51] LABS: HEMATOCRIT 38.2 % (42-52); HEMOGLOBIN 13.1 g/dL (14.0-18.0); IG# 0.02 K/uL (0.00-0.02); LYMPH % 6.5 %; LYMPH ABS # 0.79 K/uL (1.2-3.4); MEAN CELL VOLUME 91.4 fL (80-100); MEAN CORPUSCULAR HEMOGLOBIN 31.3 pg (25-34); MEAN CORPUSCULAR HGB CONC 34.3 g/dl (32-36); MEAN PLATELET VOLUME 9.4 fL (7.4-10.4); MONO % 5.7 %; NEUT % 87.6 %; NEUT ABS # 10.71 K/uL (1.4-6.5); PLATELET COUNT 204 K/uL (130-400); RED CELL DISTRIBUTION WIDTH SD 43.9 fL (36.4-46.3); WHITE BLOOD COUNT 12.22 K/uL (4.8-10.8)
[2017-08-16 07:17] LABS: ALBUMIN 3.1 gm/dl (3.4-5.0); CALCIUM 8.1 mg/dl (8.5-10.1); CREATININE 1.1 mg/dl (0.60-1.40); POTASSIUM 4.1 mmol/L (3.5-5.1)
[2017-08-16 07:24] LABS: TOTAL PROTEIN 6.9 gm/dl (6.4-8.2); URIC ACID 4.5 mg/dl (2.6-7.2)
[2017-08-16] MEDS: PANTOprazole SOD 40 MG TAB PO SCH (08:38)
[2017-08-16] MEDS: AMLODIPINE BESYLATE 5 MG TAB PO SCH (08:39)
[2017-08-16] MEDS: LISINOPRIL 40 MG TAB PO SCH (08:39)
[2017-08-16] MEDS: GABAPENTIN 300 MG CAP PO SCH ×3 (08:39→20:45)
[2017-08-16] MEDS: METOPROLOL SUCC 50MG EXT REL TAB PO SCH (08:39)
[2017-08-16] MEDS: ASPIRIN 81 MG ECTAB PO SCH (08:39)
[2017-08-16] MEDS: HYDROCHLOROTHIAZIDE 25 MG TAB PO SCH (08:40)
[2017-08-16] MEDS: FLUTICASONE PROPIONATE NA SPR 16 GM BTL NAE SCH (08:40)
[2017-08-16] MEDS: ALLOPURINOL 300 MG TAB PO SCH (08:40)
[2017-08-16] MEDS: ENOXAPARIN 40 MG/0.4 ML SYR SQ SCH (08:41)
[2017-08-16] MEDS: INSULIN ASPART 100 UNITS/ML 3 ML PEN SC SCH ×4 (08:46→20:44)
[2017-08-16] MEDS: INSULIN GLARGINE SOLOSTAR 100 UNITS/ML 3 ML PEN SC SCH ×2 (08:47→20:44)
[2017-08-16] MEDS: ONDANSETRON INJ 2 MG/ML 2 ML VIAL IV PRN ×2 (08:47→19:54)
[2017-08-16] MEDS: SODIUM CHLORIDE 0.9% 1000ML 1,000 ML IV SCH (10:00)
--- NOTE | 2017-08-16 10:17 | SURGERY PROGRESS NOTE ---
DATE: 08/16/2017 Mr. Lopez was seen today with his and son. An MRI of his brain showed possible multiple small metastatic foci. He may also have some hepatic and adrenal involvement. At any rate, he has undergone day 2 of his chemotherapy. He still has swelling in his neck, but I think this is going to improve and he feels that the right-sided lymphadenopathy is already better. At this point, we will continue on per Dr. Germain and Dr. Germain.
[2017-08-16] MEDS ORDERED: FUROSEMIDE INJ 20 MG in SYRINGE 0 ML IV ONE (11:15)
[2017-08-16] MEDS: DEXAMETHASONE IV SCH (11:59)
[2017-08-16] MEDS: SODIUM CHLORIDE 0.9% IV SCH ×2 (11:59→12:56)
[2017-08-16] MEDS: ONDANSETRON IV SCH (11:59)
[2017-08-16] MEDS: ETOPOSIDE IV SCH (12:56)
--- NOTE | 2017-08-16 13:46 | Progress Note ---
Internal Med Progress Note Date of Service: Aug 16, 2017. Provider Documentation: SUBJECTIVE: Seen and examined at bedside Reports sore neck and swelling No significant change from yesterday subjectively +hoarseness Denies chest pain, SOB, nausea, abd pain Family at bedside No other complaints OBJECTIVE: Vital Signs-as noted below Physical Exam: General Appearance:Moderately built and nourished, no apparent distress Head: normocephalic, Atraumatic Neck:+ swelling, tender to palpate Eyes: normal inspection, EOMI, PERRL Neck: supple, Trachea midline Respiratory/Chest: Decreased breath sounds, CTA Cardiovascular: S1, S2, No murmur Abdomen/GI:Soft, Non tender, Bowel sounds present Extremities/Musculoskelatal:normal inspection, no edema Neurologic/Psych:AAOX3, grossly no focal neurological deficits Skin: normal color, warm Lab data as noted below. 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 Pathology:pending CT chest as below CT ABD: Suggestive of metastatic hepatic, adrenal disease. Extensive aortoiliac atherosclerotic plaque with stenosis versus occlusion of the bilateral common iliac arteries Brain MRI:suggestive metastatic disease as well Appreciate Oncology/Radiation oncology Help Chemotherapy with Cisplatin and Etoposide as per Day # 3/3 of Etoposide. Next cycle in 3 weeks Continue allopurinol to prevent tumor lysis Palliative radiation for SVC syndrome and metastatic disease per Radiation Oncology Appreciate CT surgery help Speech and swallow eval done pain control DM II H A1c: 6.4 Hold oral agent continue ISS, Lantus monitor BGs HTN Stable Continue amlodipine, lisinopril, metoprolol, HCTZ Hypothyroidism: TSH: normal Continue levothyroxine CAD S/P Stent to LAD Continue Aspirin, statin, beta-fox Chronic back pain: Continue gabapentin GERD Continue PPI DVT Px: Lovenox SQ Code Status: Full code Disposition: Monitor in Tele Follows with Dr Pérez for routine care PROCEDURES: CT chest: 1. There is a 4.0 cm right upper lobe mass lesion. This should be considered neoplasm until proven otherwise. 2. Additional subcentimeter nodules are seen in the right upper lobe with associated intralobular septal thickening. This likely represents lymphangitic spread of tumor. 3. There is bulky mediastinal lymphadenopathy, left cervical adenopathy, and probable right hilar adenopathy. This should also be considered neoplasm until proven otherwise. 4. Small pleural effusions are identified. 5. There is a small pericardial effusion. 6. Bilateral adrenal nodules are indeterminant. CT ABD: 1. Multiple subtle hypodense right hepatic lobe lesions which are indeterminate but worrisome for metastatic disease. These measure up to 1.6 cm. 2. Indeterminate bilateral adrenal nodules. These may reflect metastatic disease or lipid poor adenomas. 3. No abdominal or pelvic lymphadenopathy. 4. Extensive aortoiliac atherosclerotic plaque with stenosis versus occlusion of the bilateral common iliac arteries. Brain MRI: 1.Multiple foci of punctate enhancement throughout the cerebellar as well as cerebral hemispheres. 2. This is highly suspect for developing metastatic change. 3. Age-related atrophy and chronic small vessel change. 4. No significant mass effect at this time. Vital Signs: Date Time Temp Pulse Resp B/P (MAP) Pulse Ox O2 Delivery O2 Flow Rate FiO2 08/16/17 13:12 36.9 68 18 149/67 (94) 94 Room Air 08/16/17 11:10 36.5 60 16 149/76 (100) 96 Room Air 08/16/17 09:40 Nasal Cannula 2.0 08/16/17 09:00 64 08/16/17 07:38 36.6 58 16 152/81 (104) 95 Nasal Cannula 2.0 08/16/17 04:00 36.9 62 20 138/73 (94) 96 2.0 08/16/17 00:00 96 Nasal Cannula 2.0 08/15/17 23:21 36.5 66 20 131/74 (93) 95 2.0 08/15/17 20:00 37.1 67 20 139/75 (96) 95 2.0 08/15/17 16:10 Nasal Cannula 2.0 Lab Results: Results Past 24 Hours Test 08/15/17 16:18 08/15/17 20:35 08/16/17 06:02 08/16/17 07:47 Range/Units Bedside Glucose 218 183 141 70-99 mg/dl White Blood Count 12.22 4.8-10.8 K/uL Red Blood Count 4.18 4.7-6.1 M/uL Hemoglobin 13.1 14.0-18.0 g/dL Hematocrit 38.2 42-52 % Mean Corpuscular Volume 91.4 80-100 fL Mean Corpuscular Hemoglobin 31.3 25-34 pg Mean Corpuscular Hemoglobin Concent 34.3 32-36 g/dl Platelet Count 204 130-400 K/uL Mean Platelet Volume 9.4 7.4-10.4 fL Neutrophils (%) (Auto) 87.6 % Lymphocytes (%) (Auto) 6.5 % Monocytes (%) (Auto) 5.7 % Eosinophils (%) (Auto) 0.0 % Basophils (%) (Auto) 0.0 % Neutrophils # (Auto) 10.71 1.4-6.5 K/uL Lymphocytes # (Auto) 0.79 1.2-3.4 K/uL Monocytes # (Auto) 0.70 0.11-0.59 K/uL Eosinophils # (Auto) 0.00 0-0.5 K/uL Basophils # (Auto) 0.00 0-0.2 K/uL RDW Standard Deviation 43.9 36.4-46.3 fL RDW Coefficient of Variation 13.0 11.5-14.5 % Immature Granulocyte % (Auto) 0.2 % Immature Granulocyte # (Auto) 0.02 0.00-0.02 K/uL Sodium Level 139 136-145 mmol/L Potassium Level 4.1 3.5-5.1 mmol/L Chloride Level 107 98-107 mmol/L Carbon Dioxide Level 28 21-32 mmol/L Anion Gap 4.0 3-11 mmol/L Blood Urea Nitrogen 19 7-18 mg/dl Creatinine 1.10 0.60-1.40 mg/dl Est Creatinine Clear Calc Drug Dose 80.0 ml/min Estimated GFR () 82.4 Estimated GFR (Non- 71.1 BUN/Creatinine Ratio 17.7 10-20 Random Glucose 128 70-99 mg/dl Uric Acid 4.5 2.6-7.2 mg/dl Calcium Level 8.1 8.5-10.1 mg/dl Magnesium Level 1.9 1.8-2.4 mg/dl Total Bilirubin 0.3 0.2-1 mg/dl Aspartate Amino Transf (AST/SGOT) 11 15-37 U/L Alanine Aminotransferase (ALT/SGPT) 14 12-78 U/L Alkaline Phosphatase 73 45-117 U/L Lactate Dehydrogenase 215 87-241 U/L Total Protein 6.9 6.4-8.2 gm/dl Albumin 3.1 3.4-5.0 gm/dl Globulin 3.8 2.5-4.0 gm/dl Albumin/Globulin Ratio 0.8 0.9-2 Test 08/16/17 11:56 Range/Units Bedside Glucose 196 70-99 mg/dl
--- NOTE | 2017-08-16 14:47 | Hematology/Oncology Prog Note ---
Hematology/Onc Progress Note Date of Service Aug 16, 2017. Subjective Diagnosis: Small cell carcinoma of the lung with metastatic disease involving the liver, brain (asymptomatic) SVC syndrome. Current treatment: Started him on cisplatin and etoposide chemotherapy on 08/14/2017. I saw him at bedside in the after, his was also bedside, he is receiving nasal cannula supplemental oxygen at 2 L/min, O2 saturation is around 94-96%, no fever, no nausea, no vomiting, received IV hydration earlier today, also received IV Lasix 20 mg x1 dose today, still has puffiness of the face and the neck, no new cardiac or pulmonary symptoms, no chest pain, no increasing leg edema has poor venous access, no headache, no focal neurological symptoms, no increasing leg pain at rest. Earlier he had some nonspecific abdominal pain which has improved. Blood workup done on 08/16/2017: -WBC 03680, H&H of 13.1/38, Platelet count of 204,000. -BUN/Creat: 19/1.1, AST 11, ALT 14, alkaline phosphatase 73, Total bilirubin: 0.3 -uric acid 4.5, calcium 8.1, magnesium 1.9. -LDH 215. Bone scan pending. No evidence of tumor lysis noted. Today he will receive day 3 of etoposide and then he is done with the chemotherapy treatment for this cycle. Next cycle of chemotherapy is due in 3 weeks from now. He will continue to have chest radiation treatment as we planned earlier. Will check with Dr. Germain (radiation oncologist) regarding brain MRI findings and treatment for that. Presently he is asymptomatic. I am planning to see him back in the clinic in the office following discharge. He has poor venous access, will need port placement before next cycle of chemotherapy. Dr. Sahil Germain Hem/Onc Vital Signs Vital Signs Past 12 Hours Date Time Temp Pulse Resp B/P (MAP) Pulse Ox O2 Delivery O2 Flow Rate FiO2 08/16/17 13:12 36.9 68 18 149/67 (94) 94 Room Air 08/16/17 11:10 36.5 60 16 149/76 (100) 96 Room Air 08/16/17 09:40 Nasal Cannula 2.0 08/16/17 09:00 64 08/16/17 07:38 36.6 58 16 152/81 (104) 95 Nasal Cannula 2.0 08/16/17 04:00 36.9 62 20 138/73 (59) 96 2.0
[2017-08-16] MEDS: ROSUVASTATIN CALCIUM 20 MG TAB PO SCH (20:45)
[2017-08-17] VITALS (8 sets, daily range): BP systolic 127–138; BP diastolic 64–78; PULSE 57–100; TEMP 36.3–36.8; O2SAT 90–97
[2017-08-17] MEDS: MoRPHine SULFATE 2 MG/ML CARP IV PRN ×4 (01:54→19:38)
[2017-08-17] MEDS: LEVOTHYROXINE 75 MCG TAB PO SCH (05:46)
[2017-08-17] MEDS: ALLOPURINOL 300 MG TAB PO SCH (07:44)
[2017-08-17] MEDS: PANTOprazole SOD 40 MG TAB PO SCH (07:44)
[2017-08-17] MEDS: METOPROLOL SUCC 50MG EXT REL TAB PO SCH (07:44)
[2017-08-17] MEDS: ASPIRIN 81 MG ECTAB PO SCH (07:45)
[2017-08-17] MEDS: AMLODIPINE BESYLATE 5 MG TAB PO SCH (07:45)
[2017-08-17] MEDS: GABAPENTIN 300 MG CAP PO SCH ×3 (07:45→20:21)
[2017-08-17] MEDS: HYDROCHLOROTHIAZIDE 25 MG TAB PO SCH (07:45)
[2017-08-17] MEDS: LISINOPRIL 40 MG TAB PO SCH (07:46)
[2017-08-17] MEDS: ENOXAPARIN 40 MG/0.4 ML SYR SQ SCH (07:47)
[2017-08-17] MEDS: FLUTICASONE PROPIONATE NA SPR 16 GM BTL NAE SCH (07:47)
[2017-08-17 08:05] LABS: HEMATOCRIT 38.6 % (42-52); HEMOGLOBIN 12.9 g/dL (14.0-18.0); IG# 0.01 K/uL (0.00-0.02); LYMPH % 11.6 %; LYMPH ABS # 0.92 K/uL (1.2-3.4); MEAN CELL VOLUME 91.7 fL (80-100); MEAN CORPUSCULAR HEMOGLOBIN 30.6 pg (25-34); MEAN CORPUSCULAR HGB CONC 33.4 g/dl (32-36); MEAN PLATELET VOLUME 9.1 fL (7.4-10.4); MONO ABS # 0.32 K/uL (0.11-0.59); NEUT % 84.3 %; NEUT ABS # 6.66 K/uL (1.4-6.5); PLATELET COUNT 180 K/uL (130-400); RED CELL DISTRIBUTION WIDTH CV 13.1 % (11.5-14.5); RED CELL DISTRIBUTION WIDTH SD 43.5 fL (36.4-46.3); WHITE BLOOD COUNT 7.91 K/uL (4.8-10.8)
[2017-08-17 08:46] LABS: CALCIUM 8.1 mg/dl (8.5-10.1); CREATININE 1.05 mg/dl (0.60-1.40)
[2017-08-17] MEDS: INSULIN ASPART 100 UNITS/ML 3 ML PEN SC SCH ×4 (09:03→20:31)
[2017-08-17] MEDS: INSULIN GLARGINE SOLOSTAR 100 UNITS/ML 3 ML PEN SC SCH ×2 (09:03→20:31)
--- NOTE | 2017-08-17 09:11 | SURGERY PROGRESS NOTE ---
DATE: 08/17/2017 Ms. Lopez looks great today. He is on room air with 97% sats this morning. I believe that his swelling in his neck is better and subjectively he feels it is too. He has received 3 days of chemotherapy. His first cycle is complete. Dr. Sahil Germain has set him up to have his next cycle in [address] Sae Germain from radiation oncology is going to continue his radiation therapy. Quite frankly, I am happy with him. At this point, I will sign off. I do not need to see him back in the office unless any issues arise. He will need to see one of the general surgeons for a port placement. MIRNA
--- NOTE | 2017-08-17 09:29 | Surgery Consultation ---
Consultation Date of Service Aug 17, 2017. Chief Complaint SVC syndrome History of Present Illness The patient is a 62 year old male with multiple medical problems, including CAD , HTN, admitted after chest CT scan demonstrated large mass which is compressing his SVC, as well as noted increased neck edema and difficulty swallowing, seen in consultation today for SVC syndrome. Pt states he feels that the edema and difficulty swallowing has improved somewhat, even after only a few treatments. Denies eye swelling, severe MOURA, dizziness, arm edema. Denies fever, chills, chest pain, abd pain, N/V, rest pain, claudication, other complaints. Of note, a CT scan performed of abd/pelvis over the weekend also demonstrates severe stenosis of his BL iliac arteries. Vitals Vital Signs Past 12 Hours Date Time Temp Pulse Resp B/P (MAP) Pulse Ox O2 Delivery O2 Flow Rate FiO2 08/17/17 07:48 36.5 74 18 136/64 (88) 97 Room Air 08/17/17 00:08 36.5 100 18 138/66 (90) 90 2.0 08/17/17 00:00 96 Nasal Cannula 2.0 08/16/17 21:24 36.6 56 20 153/71 (98) 95 2.0 Allergies Coded Allergies: Naproxen (Verified Allergy, Unknown, ., 08/13/17) Home Medications Scheduled Amlodipine (Norvasc), 10 MG PO DAILY Aspirin (Aspirin Ec), 81 MG PO DAILY Fluticasone Propionate (Nasal) (Flonase Allergy Relief), 2 SPRAY DESTIN DAILY Gabapentin (Neurontin), 300 MG PO TID Glimepiride (Glimepiride), 1 MG PO DAILY Hydrochlorothiazide (Hctz), 1 CAP PO DAILY Levothyroxine Sodium (Levothyroxine Sodium), 75 MCG PO DAILY Lisinopril (Zestril), 40 MG PO DAILY Melatonin (Kp Melatonin), 1 TAB PO HS Metformin Hcl (Glucophage), 1,000 MG PO BID Metoprolol Succ (Toprol Xl) (Toprol-Xl), 50 MG PO DAILY Pantoprazole Sodium (Protonix), 1 TAB PO DAILY Rosuvastatin Calcium (Crestor), 40 MG PO QPM Scheduled PRN Nitroglycerin (Nitrostat), 0.4 MG UT UD PRN for Chest Pain Tramadol (Ultram), 50 MG PO Q6 PRN for Pain Zolpidem Tartrate (Zolpidem Tartrate), 10 MG PO HS PRN for Sleep Problem List Medical Problems: (1) Abrasion (2) CAD (coronary artery disease) (3) Chronic low back pain (4) Crush injury forearm (5) Diabetes (6) HTN (hypertension) (7) Hypothyroidism (8) Lung mass (9) Neck mass (10) RBBB (11) Small cell lung cancer Surgical Problems: (1) History of lumbar spinal fusion (2) Hx of cardiac cath Surgical / Medical History Hx Cardiac Surgery: Yes (stents x2 2011) Hx Abdominal Surgery: No Hx Cancer Surgery: No Hx Thoracic Surgery: No Hx Orthopedic: Yes (B/L knee cartilage) HX Other Surgery: Yes (tonsils) Past Medical/Surgical History: Angioplasty/Stent, Diabetes, Heart Disease, High Cholesterol, Hypertension Family History Cancer (Breast CA-mother) Social History Smoking Status: Former Smoker Hx Tobacco Use In Past Year?: No Hx Alcohol Use - Type & Amnt: Yes (socially) Hx Substance Use -Type & Amnt: No Review of Systems Constitutional: + malaise, No chills, No fever Skin: No change in color Eyes: No visual changes ENMT: + throat swelling, No sore throat Respiratory: No cough, No YOUNG, No short of breath Cardiovascular: + edema, No chest pain, No palpitations, No intermittent claudication Gastrointestinal: No abdominal pain, No nausea, No vomiting Neurologic: No dizziness, No headache, No numbness, No tingling Physical Exam Constitutional: General Apperance: well-nourished, well-developed, obese Level of Distress: NAD, chronically ill Psychiatric: Mental Status: active & alert, normal mood, normal affect Orientation: oriented except where noted, to time, to place, to person Memory: recent memory normal, remote memory normal Head: normocephalic, atraumatic Eyes: EOM: EOMI ENMT: normal ENT inspection, hearing grossly normal Neck: supple, trachea midline, pertinent finding (Neck amd mild facial edema, R side worse than left. No orbital edema noted.) Lungs: Respiratory effort: no dyspnea Auscultation: no rhonchi, decreased breath sounds Cardiovascular: Apical Impulse: not displaced Heart Auscultation: RRR, no rubs, no gallops Peripheral Pulses: Pulses: full and equal, in all extremities except if noted Bruits: none appreciated Carotid Pulse: normal on the left, normal on the right Brachial Pulses: normal on the left, normal on the right Radial Pulse: normal on the left, normal on the right Femoral Pulse: decreased on the left, decreased on the right Posterior Tibialis Pulse: pertinent finding (nonpalpable) Dorsalis Pedis Pulse: pertinent finding (nonpalpable, BLE with + brisk cap refill) Abdomen: Bowel Sounds: normal Inspection & Palpation: soft, non-distended, no tenderness, guarding & rebound Musculoskeletal: normal strength (5/5 throughout), normal tone Extremities: Upper Right: no cyanosis, no edema, no varicosities, no palpable cord Upper Left: no cyanosis, no edema, no varicosities, no palpable cord Lower Right: no cyanosis, no varicosities, no palpable cord, edema (trace) Lower Left: no cyanosis, no varicosities, no palpable cord, edema (trace) Neurologic: Cranial Nerves: grossly intact Sensation: grossly intact Assessment and Plan ASSESSMENT and PLAN: SVC syndrome Lung ca Pt states sx have improved. After discussion with Dr Jesus, does not recommend stenting of SVC at this time. If sx become significantly worse despite chemo/rad tx, then could consider central venous stenting. Please call if needed.
--- NOTE | 2017-08-17 11:01 | DIAGNOSTIC IMAGING REPORT ---
BONE SCAN WHOLE BODY CLINICAL HISTORY: Lung cancer with SVC syndrome, staging evaluation. COMPARISON STUDY: CT of the chest August 13, [address] of the abdomen and pelvis August 14, 2017. TECHNIQUE: 26.4 mCi of technetium 99m MDP was injected IV at 7:45 AM on August 17, 2017. 3 hours following injection, whole body imaging was performed in the anterior and posterior projections. FINDINGS: Expected soft tissue and renal uptake is present. Minimal uptake within the feet, shoulders and sternoclavicular joints is degenerative. There is no radiotracer uptake to suggest skeletal metastatic disease. IMPRESSION: No evidence of skeletal metastatic disease. Electronically signed by: Mike Griffin M.D. 08/17/2017 11:00 AM Dictated Date/Time: 08/17/2017 10:57 AM
--- NOTE | 2017-08-17 12:06 | DIAGNOSTIC IMAGING REPORT ---
MODIFIED BARIUM SWALLOW CLINICAL HISTORY: neck CA; r/o aspiration. COMPARISON STUDY: No previous studies for comparison. Fluoroscopy time: 2.3 minutes. FINDINGS: No aspiration was identified within liquids, nectar thick liquids, pudding or crackers with paste. There is penetration with swallows of thin liquids. Mild premature spillage was noted. Minimal residuals within the vallecula were noted. IMPRESSION: 1. No evidence of tracheal aspiration. Penetration with thin liquids. 2. Full recommendations by speech pathology to follow. Electronically signed by: Mike Griffin M.D. 08/17/2017 12:05 PM Dictated Date/Time: 08/17/2017 12:03 PM
--- NOTE | 2017-08-17 12:54 | Hematology/Oncology Prog Note ---
Hematology/Onc Progress Note Date of Service Aug 17, 2017. Subjective Attempted to round on patient at bedside. He was out of room for bone scan. His was present. She reports he has not had any issues with chemotherapy. She denies him having nausea, vomiting, bowel changes, numbness/tingling of extremities or hearing change. She states he is breathing better and swelling has decreased in neck. She states he is concerned about his overall prognosis. Vital Signs Vital Signs Past 12 Hours Date Time Temp Pulse Resp B/P (MAP) Pulse Ox O2 Delivery O2 Flow Rate FiO2 08/17/17 12:09 36.8 66 18 127/70 (89) 94 08/17/17 08:30 97 Room Air 08/17/17 07:48 36.5 74 18 136/64 (88) 97 Room Air Laboratory 08/15/17 05:31 Red Blood Count 4.52, Mean Corpuscular Volume 90.7, Mean Corpuscular Hemoglobin 30.8, Mean Corpuscular Hemoglobin Concent 33.9, Mean Platelet Volume 9.3, Neutrophils (%) (Auto) 87.2, Lymphocytes (%) (Auto) 9.4, Monocytes (%) (Auto) 3.2, Eosinophils (%) (Auto) 0.0, Basophils (%) (Auto) 0.0, Neutrophils # (Auto) 4.08, Lymphocytes # (Auto) 0.44, Monocytes # (Auto) 0.15, Eosinophils # (Auto) 0.00, Basophils # (Auto) 0.00 08/16/17 06:02 Red Blood Count 4.18, Mean Corpuscular Volume 91.4, Mean Corpuscular Hemoglobin 31.3, Mean Corpuscular Hemoglobin Concent 34.3, Mean Platelet Volume 9.4, Neutrophils (%) (Auto) 87.6, Lymphocytes (%) (Auto) 6.5, Monocytes (%) (Auto) 5.7, Eosinophils (%) (Auto) 0.0, Basophils (%) (Auto) 0.0, Neutrophils # (Auto) 10.71, Lymphocytes # (Auto) 0.79, Monocytes # (Auto) 0.70, Eosinophils # (Auto) 0.00, Basophils # (Auto) 0.00 08/17/17 07:57 Red Blood Count 4.21, Mean Corpuscular Volume 91.7, Mean Corpuscular Hemoglobin 30.6, Mean Corpuscular Hemoglobin Concent 33.4, Mean Platelet Volume 9.1, Neutrophils (%) (Auto) 84.3, Lymphocytes (%) (Auto) 11.6, Monocytes (%) (Auto) 4.0, Eosinophils (%) (Auto) 0.0, Basophils (%) (Auto) 0.0, Neutrophils # (Auto) 6.66, Lymphocytes # (Auto) 0.92, Monocytes # (Auto) 0.32, Eosinophils # (Auto) 0.00, Basophils # (Auto) 0.00 08/14/17 13:51 08/15/17 05:31 08/16/17 06:02 08/17/17 07:57 Test 08/14/17 13:51 08/14/17 17:27 08/14/17 20:14 08/15/17 05:31 Anion Gap 5.0 mmol/L (3-11) 6.0 mmol/L (3-11) Est Creatinine Clear Calc Drug Dose 87.9 ml/min 83.0 ml/min Estimated GFR () 92.4 86.1 Estimated GFR (Non- 79.7 74.3 BUN/Creatinine Ratio 12.3 (10-20) 12.4 (10-20) Calcium Level 8.4 mg/dl (8.5-10.1) 7.9 mg/dl (8.5-10.1) Magnesium Level 1.7 mg/dl (1.8-2.4) 1.6 mg/dl (1.8-2.4) Total Bilirubin 0.5 mg/dl (0.2-1) 0.5 mg/dl (0.2-1) Aspartate Amino Transf (AST/SGOT) 11 U/L (15-37) 11 U/L (15-37) Alanine Aminotransferase (ALT/SGPT) 14 U/L (12-78) 13 U/L (12-78) Alkaline Phosphatase 87 U/L (45-117) 86 U/L (45-117) Total Protein 7.0 gm/dl (6.4-8.2) 7.2 gm/dl (6.4-8.2) Albumin 3.3 gm/dl (3.4-5.0) 3.1 gm/dl (3.4-5.0) Globulin 3.7 gm/dl (2.5-4.0) 4.1 gm/dl (2.5-4.0) Albumin/Globulin Ratio 0.9 (0.9-2) 0.8 (0.9-2) Bedside Glucose 102 mg/dl (70-99) 149 mg/dl (70-99) White Blood Count 4.68 K/uL (4.8-10.8) Red Blood Count 4.52 M/uL (4.7-6.1) Hemoglobin 13.9 g/dL (14.0-18.0) Hematocrit 41.0 % (42-52) Mean Corpuscular Volume 90.7 fL (80-100) Mean Corpuscular Hemoglobin 30.8 pg (25-34) Mean Corpuscular Hemoglobin Concent 33.9 g/dl (32-36) Platelet Count 179 K/uL (130-400) Mean Platelet Volume 9.3 fL (7.4-10.4) Neutrophils (%) (Auto) 87.2 % Lymphocytes (%) (Auto) 9.4 % Monocytes (%) (Auto) 3.2 % Eosinophils (%) (Auto) 0.0 % Basophils (%) (Auto) 0.0 % Neutrophils # (Auto) 4.08 K/uL (1.4-6.5) Lymphocytes # (Auto) 0.44 K/uL (1.2-3.4) Monocytes # (Auto) 0.15 K/uL (0.11-0.59) Eosinophils # (Auto) 0.00 K/uL (0-0.5) Basophils # (Auto) 0.00 K/uL (0-0.2) RDW Standard Deviation 43.1 fL (36.4-46.3) RDW Coefficient of Variation 13.0 % (11.5-14.5) Immature Granulocyte % (Auto) 0.2 % Immature Granulocyte # (Auto) 0.01 K/uL (0.00-0.02) Uric Acid 4.3 mg/dl (2.6-7.2) Lactate Dehydrogenase 166 U/L (87-241) Test 08/15/17 07:25 08/15/17 11:31 08/15/17 16:18 08/15/17 20:35 Bedside Glucose 156 mg/dl (70-99) 256 mg/dl (70-99) 218 mg/dl (70-99) 183 mg/dl (70-99) Test 08/16/17 06:02 08/16/17 07:47 08/16/17 11:56 08/16/17 16:19 White Blood Count 12.22 K/uL (4.8-10.8) Red Blood Count 4.18 M/uL (4.7-6.1) Hemoglobin 13.1 g/dL (14.0-18.0) Hematocrit 38.2 % (42-52) Mean Corpuscular Volume 91.4 fL (80-100) Mean Corpuscular Hemoglobin 31.3 pg (25-34) Mean Corpuscular Hemoglobin Concent 34.3 g/dl (32-36) Platelet Count 204 K/uL (130-400) Mean Platelet Volume 9.4 fL (7.4-10.4) Neutrophils (%) (Auto) 87.6 % Lymphocytes (%) (Auto) 6.5 % Monocytes (%) (Auto) 5.7 % Eosinophils (%) (Auto) 0.0 % Basophils (%) (Auto) 0.0 % Neutrophils # (Auto) 10.71 K/uL (1.4-6.5) Lymphocytes # (Auto) 0.79 K/uL (1.2-3.4) Monocytes # (Auto) 0.70 K/uL (0.11-0.59) Eosinophils # (Auto) 0.00 K/uL (0-0.5) Basophils # (Auto) 0.00 K/uL (0-0.2) RDW Standard Deviation 43.9 fL (36.4-46.3) RDW Coefficient of Variation 13.0 % (11.5-14.5) Immature Granulocyte % (Auto) 0.2 % Immature Granulocyte # (Auto) 0.02 K/uL (0.00-0.02) Anion Gap 4.0 mmol/L (3-11) Est Creatinine Clear Calc Drug Dose 80.0 ml/min Estimated GFR () 82.4 Estimated GFR (Non- 71.1 BUN/Creatinine Ratio 17.7 (10-20) Uric Acid 4.5 mg/dl (2.6-7.2) Calcium Level 8.1 mg/dl (8.5-10.1) Magnesium Level 1.9 mg/dl (1.8-2.4) Total Bilirubin 0.3 mg/dl (0.2-1) Aspartate Amino Transf (AST/SGOT) 11 U/L (15-37) Alanine Aminotransferase (ALT/SGPT) 14 U/L (12-78) Alkaline Phosphatase 73 U/L (45-117) Lactate Dehydrogenase 215 U/L (87-241) Total Protein 6.9 gm/dl (6.4-8.2) Albumin 3.1 gm/dl (3.4-5.0) Globulin 3.8 gm/dl (2.5-4.0) Albumin/Globulin Ratio 0.8 (0.9-2) Bedside Glucose 141 mg/dl (70-99) 196 mg/dl (70-99) 255 mg/dl (70-99) Test 08/16/17 20:34 08/17/17 07:57 08/17/17 07:58 08/17/17 12:03 Bedside Glucose 176 mg/dl (70-99) 108 mg/dl (70-99) 167 mg/dl (70-99) White Blood Count 7.91 K/uL (4.8-10.8) Red Blood Count 4.21 M/uL (4.7-6.1) Hemoglobin 12.9 g/dL (14.0-18.0) Hematocrit 38.6 % (42-52) Mean Corpuscular Volume 91.7 fL (80-100) Mean Corpuscular Hemoglobin 30.6 pg (25-34) Mean Corpuscular Hemoglobin Concent 33.4 g/dl (32-36) Platelet Count 180 K/uL (130-400) Mean Platelet Volume 9.1 fL (7.4-10.4) Neutrophils (%) (Auto) 84.3 % Lymphocytes (%) (Auto) 11.6 % Monocytes (%) (Auto) 4.0 % Eosinophils (%) (Auto) 0.0 % Basophils (%) (Auto) 0.0 % Neutrophils # (Auto) 6.66 K/uL (1.4-6.5) Lymphocytes # (Auto) 0.92 K/uL (1.2-3.4) Monocytes # (Auto) 0.32 K/uL (0.11-0.59) Eosinophils # (Auto) 0.00 K/uL (0-0.5) Basophils # (Auto) 0.00 K/uL (0-0.2) RDW Standard Deviation 43.5 fL (36.4-46.3) RDW Coefficient of Variation 13.1 % (11.5-14.5) Immature Granulocyte % (Auto) 0.1 % Immature Granulocyte # (Auto) 0.01 K/uL (0.00-0.02) Anion Gap 6.0 mmol/L (3-11) Est Creatinine Clear Calc Drug Dose 83.8 ml/min Estimated GFR () 87.1 Estimated GFR (Non- 75.2 BUN/Creatinine Ratio 21.3 (10-20) Calcium Level 8.1 mg/dl (8.5-10.1) Magnesium Level 1.7 mg/dl (1.8-2.4) Chemistry Specimen Hemolysis 08/17/17: Bone scan is negative for metastatic disease Assessment & Plan 1. 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 Germain would like it placed prior to discharge if possible, general surgery consulted Dr. Germain is attending medical oncologist. I have discussed the patient's case, impression and plan with Galilea Campos. Her note reflects my findings and plan Dr. Sahil Germain Hem/Onc
[2017-08-17] MEDS ORDERED: MAGNESIUM SULFATE 1GM / D5W 100 ML IV STA (13:06)
--- NOTE | 2017-08-17 13:33 | Surgery Consultation ---
Consultation Date of Consultation: Aug 17, 2017. Attending Physician: Jose Luis Lacey MD Reason for Consultation: aport placement History of Present Illness Pt is 62 y/o M with PMH DM II, HTN, CAD S/P LILLI LAD 2 in 2010, chronic RBBB, chronic low back pain, and hypothyroidism who was sent to ER for neck swelling and mass. Patient seen outpatient at PCP's office on 08/13/17 for neck swelling and had stat CT scan and sent to ER for further evaluation. Patient reported some dysphagia, hoarseness, sore throat, and neck pain for the past month. Has been having night sweats. CT scan of the neck showed partially imaged right upper lobe lung mass with superior mediastinal and cervical lymphadenopathy concerning for malignancy. Had ultrasound guided biopsy of the left neck by Dr. Sanchez on Thursday08/14/17. Pathology showing metastatic small cell carcinoma. Patient has started chemotherapy and radiation. Our services consulted for aport insertion. PATHOLOGY: FINAL DIAGNOSIS NECK, LEFT, ULTRASOUND-GUIDED ASPIRATION: 1. METASTATIC SMALL CELL CARCINOMA. 2. SEE COMMENT. Justin states his breathing and neck pain has improved since starting treatment. Swelling of the left neck has slightly improved as well. Denies of any difficulty breathing, chest pain/pressure, nausea, vomiting, dizziness, lightheadedness. Tolerating treatments. No history of central catheter placement or pacemaker/defibrillator. Past Medical/Surgical History Past Medical/Surgical History Past Medical History: (1) Abrasion (2) (coronary artery disease) (3) Chronic low back pain (4) Crush injury forearm (5) Diabetes (6) HTN (7) Hypothyroidism (8) RBBB Surgical Problems: (1) History of lumbar spinal fusion (2) Hx of cardiac cath 2010- LILIL to LAD x 2 Family History Cancer (Breast CA-mother) Social History Smoking Status: Former Smoker Smokeless Tobacco Use: No Alcohol Use: Rare Drug Use: none Marital Status: Occupation Status: retired Allergies Coded Allergies: Naproxen (Verified Allergy, Unknown, ., 08/13/17) Home Medications Scheduled Amlodipine (Norvasc), 10 MG PO DAILY Aspirin (Aspirin Ec), 81 MG PO DAILY Fluticasone Propionate (Nasal) (Flonase Allergy Relief), 2 SPRAY DESTIN DAILY Gabapentin (Neurontin), 300 MG PO TID Glimepiride (Glimepiride), 1 MG PO DAILY Hydrochlorothiazide (Hctz), 1 CAP PO DAILY Levothyroxine Sodium (Levothyroxine Sodium), 75 MCG PO DAILY Lisinopril (Zestril), 40 MG PO DAILY Melatonin (Kp Melatonin), 1 TAB PO HS Metformin Hcl (Glucophage), 1,000 MG PO BID Metoprolol Succ (Toprol Xl) (Toprol-Xl), 50 MG PO DAILY Pantoprazole Sodium (Protonix), 1 TAB PO DAILY Rosuvastatin Calcium (Crestor), 40 MG PO QPM Scheduled PRN Nitroglycerin (Nitrostat), 0.4 MG UT UD PRN for Chest Pain Tramadol (Ultram), 50 MG PO Q6 PRN for Pain Zolpidem Tartrate (Zolpidem Tartrate), 10 MG PO HS PRN for Sleep Current Inpatient Medications Current Inpatient Medications Medications (Trade) Dose Ordered Sig/Cj Route Start Time Stop Time Status Last Admin Dose Admin Acetaminophen (Tylenol Tab) 650 mg Q4H PRN PO 08/13/17 15:15 09/12/17 15:14 Ondansetron HCl (Zofran Inj) 4 mg Q6H PRN IV 08/13/17 15:15 09/12/17 15:14 08/16/17 19:54 4 MG Nitroglycerin (Nitrostat Tab) 0.4 mg UD PRN SL 08/13/17 15:15 09/12/17 15:14 Polyethylene (Miralax Powder Packet) 17 gm DAILY PRN PO 08/13/17 15:15 09/12/17 15:14 Insulin Aspart (novoLOG ASPART) SLIDING SCALE If C... ACHS SC 08/13/17 16:00 09/12/17 15:59 08/17/17 12:18 4 UNITS Glucose (Glucose 40% Gel) 15-30 GRAMS 15 GRAMS... UD PRN PO 08/13/17 15:15 09/12/17 15:14 Glucose (Glucose Chew Tab) 4-8 Tablets 4 Tabl... UD PRN PO 08/13/17 15:15 09/12/17 15:14 Dextrose (Dextrose 50% 50ML Syringe) 25-50ML OF 50% DW IV FOR... UD PRN IV 08/13/17 15:15 09/12/17 15:14 Glucagon (Glucagon Inj) 1 mg UD PRN SQ 08/13/17 15:15 09/12/17 15:14 Morphine Sulfate (MoRPHine SULFATE INJ) 2 mg Q4 PRN IV 08/13/17 15:30 08/27/17 15:29 08/17/17 13:01 2 MG Amlodipine Besylate (Norvasc Tab) 10 mg DAILY PO 08/14/17 09:00 09/13/17 08:59 08/17/17 07:45 10 MG Aspirin (Ecotrin Tab) 81 mg DAILY PO 08/14/17 09:00 09/13/17 08:59 08/17/17 07:45 81 MG Fluticasone Propionate (Flonase Nasal [place]) 2 sprays DAILY DESTIN 08/14/17 09:00 09/13/17 08:59 08/17/17 07:47 2 SPRAYS Gabapentin (Neurontin Cap) 300 mg TID PO 08/13/17 21:00 09/12/17 20:59 08/17/17 07:45 300 MG Hydrochlorothiazide (Hydrochlorothiazide Tab) 12.5 mg DAILY PO 08/14/17 09:00 09/13/17 08:59 08/17/17 07:45 12.5 MG Levothyroxine Sodium (Synthroid Tab) 75 mcg DAILYBB PO 08/14/17 06:30 09/13/17 06:59 08/17/17 05:46 75 MCG Lisinopril (Zestril Tab) 40 mg DAILY PO 08/14/17 09:00 09/13/17 08:59 08/17/17 07:46 40 MG Metoprolol Succinate (Toprol Xl Tab) 50 mg DAILY PO 08/14/17 09:00 09/13/17 08:59 08/17/17 07:44 50 MG Pantoprazole Sodium (Protonix Tab) 40 mg DAILY PO 08/14/17 09:00 09/13/17 08:59 08/17/17 07:44 40 MG Rosuvastatin Calcium (Crestor Tab) 40 mg QPM PO 08/13/17 21:00 09/12/17 20:59 08/16/17 20:45 40 MG Tramadol HCl (Ultram Tab) 50 mg Q6 PRN PO 08/13/17 15:30 09/12/17 15:29 08/13/17 21:08 50 MG Zolpidem Tartrate (Ambien Tab) 10 mg HS PRN PO 08/13/17 15:30 09/12/17 15:29 Allopurinol (Zyloprim Tab) 300 mg DAILY PO 08/14/17 11:00 09/13/17 10:59 08/17/17 07:44 300 MG Ioversol (Optiray 320) 100 ml UD PRN IV 08/14/17 11:00 08/18/17 10:59 Enoxaparin Sodium (Lovenox Inj) 40 mg QAM SQ 08/15/17 08:00 09/14/17 08:59 08/17/17 07:47 40 MG Gadobutrol (Gadavist) 9 mmol UD PRN IV 08/15/17 10:30 08/19/17 10:29 Insulin Glargine (Lantus Solostar Pen) 5 units BID SC 08/15/17 20:00 09/14/17 19:59 08/17/17 09:03 5 UNITS Magnesium Sulfate 100 ml @ 100 mls/hr NOW STAT IV 08/17/17 13:06 08/17/17 14:05 Review of Systems Constitutional: + sweats, + weakness, + fatigue Eyes: No worsening of vision ENT: + sore throat, + trouble swallowing Respiratory: No cough Cardiovascular: No chest pain Abdomen: No pain, No nausea, No vomiting Endocrine: + fatigue Hematologic / Lymphatic: No abnormal bleeding/bruising, No clotting problems Integumentary: No rash Physical Exam Date Time Temp Pulse Resp B/P (MAP) Pulse Ox O2 Delivery O2 Flow Rate FiO2 08/17/17 12:09 36.8 66 18 127/70 (89) 94 08/17/17 08:30 97 Room Air 08/17/17 07:48 36.5 74 18 136/64 (88) 97 Room Air 08/17/17 00:08 36.5 100 18 138/66 (90) 90 2.0 08/17/17 00:00 96 Nasal Cannula 2.0 08/16/17 21:24 36.6 56 20 153/71 (98) 95 2.0 08/16/17 19:50 Nasal Cannula 2.0 08/16/17 16:17 Nasal Cannula 2.0 General Appearance: WD/WN, no apparent distress Head: normocephalic, atraumatic Eyes: sclerae normal ENT: hearing grossly normal Respiratory/Chest: lungs clear, no respiratory distress, no accessory muscle use, + decreased breath sounds (RUL) Cardiovascular: regular rate, rhythm, no murmur Back: normal inspection Extremities/Musculoskelatal: normal inspection, no pedal edema Neurologic/Psych: alert, normal mood/affect, oriented x 3 Skin: normal color, warm/dry, no rash Lymphatic: + cervical node abnormality (left neck, hard, fixed) Laboratory Results Last 24 Hours Test 08/16/17 16:19 08/16/17 20:34 08/17/17 07:57 08/17/17 07:58 Bedside Glucose 255 mg/dl 176 mg/dl 108 mg/dl White Blood Count 7.91 K/uL Red Blood Count 4.21 M/uL Hemoglobin 12.9 g/dL Hematocrit 38.6 % Mean Corpuscular Volume 91.7 fL Mean Corpuscular Hemoglobin 30.6 pg Mean Corpuscular Hemoglobin Concent 33.4 g/dl Platelet Count 180 K/uL Mean Platelet Volume 9.1 fL Neutrophils (%) (Auto) 84.3 % Lymphocytes (%) (Auto) 11.6 % Monocytes (%) (Auto) 4.0 % Eosinophils (%) (Auto) 0.0 % Basophils (%) (Auto) 0.0 % Neutrophils # (Auto) 6.66 K/uL Lymphocytes # (Auto) 0.92 K/uL Monocytes # (Auto) 0.32 K/uL Eosinophils # (Auto) 0.00 K/uL Basophils # (Auto) 0.00 K/uL RDW Standard Deviation 43.5 fL RDW Coefficient of Variation 13.1 % Immature Granulocyte % (Auto) 0.1 % Immature Granulocyte # (Auto) 0.01 K/uL Sodium Level 140 mmol/L Potassium Level 4.0 mmol/L Chloride Level 103 mmol/L Carbon Dioxide Level 31 mmol/L Anion Gap 6.0 mmol/L Blood Urea Nitrogen 22 mg/dl Creatinine 1.05 mg/dl Est Creatinine Clear Calc Drug Dose 83.8 ml/min Estimated GFR () 87.1 Estimated GFR (Non- 75.2 BUN/Creatinine Ratio 21.3 Random Glucose 83 mg/dl Calcium Level 8.1 mg/dl Magnesium Level 1.7 mg/dl Chemistry Specimen Hemolysis Test 08/17/17 12:03 Bedside Glucose 167 mg/dl Assessment & Plan 62 year-old male who presented to emergency department with neck swelling, pain , dysphagia, and sore throat with newly diagnosed right upper lobe mass with mediastinal and cervical lymphadenopathy. 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 US guided biopsy of left neck showing metastatic small cell carcinoma. Has received chemotherapy and radiation. Plan: Plan for aport insertion tomorrow with Dr. Cao. Informed consent will be obtained by Dr. Cao. Continue current medical management NPO after midnight. Hold Lovenox Dr. Cao to see patient later today.
--- NOTE | 2017-08-17 15:30 | Progress Note ---
Internal Med Progress Note Date of Service: Aug 17, 2017. Provider Documentation: SUBJECTIVE: Seen and examined at bedside Feels better today Got radiation therapy today Neck pain is controlled Neck swelling better +hoarseness persistent Denies chest pain, SOB, nausea, abd pain Family at bedside No other complaints OBJECTIVE: Vital Signs-as noted below Physical Exam: General Appearance:Moderately built and nourished, no apparent distress Head: normocephalic, Atraumatic Neck:+ swelling, tender to palpate Eyes: normal inspection, EOMI, PERRL Neck: supple, Trachea midline Respiratory/Chest: Decreased breath sounds, CTA Cardiovascular: S1, S2, No murmur Abdomen/GI:Soft, Non tender, Bowel sounds present Extremities/Musculoskelatal:normal inspection, no edema Neurologic/Psych:AAOX3, grossly no focal neurological deficits Skin: normal color, warm Lab data as noted below. ASSESSMENT & PLAN: Metastatic small cell carcinoma of the lung: Possible SVC syndrome Dysphagia:Dental soft diet S/P ultrasound-guided fine-needle aspiration of a left neck mass/lymph node. Pathology:Small cell carcinoma CT chest as below CT ABD: Suggestive of metastatic hepatic, adrenal disease. Extensive aortoiliac atherosclerotic plaque with stenosis versus occlusion of the bilateral common iliac arteries Brain MRI:suggestive metastatic disease as well Bone Scan: No mets Appreciate Oncology/Radiation oncology Help Completed 1st cycle of chemotherapy with Cisplatin and Etoposide as per Next cycle in 3 weeks Continue allopurinol to prevent tumor lysis Palliative radiation for SVC syndrome and metastatic disease per Radiation Oncology Appreciate CT surgery help Speech and swallow eval done pain control Needs chemo port placed prior to DC. surgery consulted for port placement SVC stenting not recommended by Vascular currently Video swallow: No evidence of tracheal aspiration Speech Therapy Discharge Instructions * 1.Moist Dental soft diet. Thin liquids. 2.Aspiration precautions, straws OK. Fully upright for meals and for 30 minutes after meals. DM II H A1c: 6.4 Hold oral agent continue ISS, Lantus monitor BGs HTN Stable Continue amlodipine, lisinopril, metoprolol, HCTZ Hypothyroidism: TSH: normal Continue levothyroxine CAD S/P Stent to LAD Continue Aspirin, statin, beta-fox Chronic back pain: Continue gabapentin GERD Continue PPI DVT Px: Lovenox SQ Code Status: Full code Disposition: Monitor in Tele Follows with Dr Pérez for routine care PROCEDURES: CT chest: 1. There is a 4.0 cm right upper lobe mass lesion. This should be considered neoplasm until proven otherwise. 2. Additional subcentimeter nodules are seen in the right upper lobe with associated intralobular septal thickening. This likely represents lymphangitic spread of tumor. 3. There is bulky mediastinal lymphadenopathy, left cervical adenopathy, and probable right hilar adenopathy. This should also be considered neoplasm until proven otherwise. 4. Small pleural effusions are identified. 5. There is a small pericardial effusion. 6. Bilateral adrenal nodules are indeterminant. CT ABD: 1. Multiple subtle hypodense right hepatic lobe lesions which are indeterminate but worrisome for metastatic disease. These measure up to 1.6 cm. 2. Indeterminate bilateral adrenal nodules. These may reflect metastatic disease or lipid poor adenomas. 3. No abdominal or pelvic lymphadenopathy. 4. Extensive aortoiliac atherosclerotic plaque with stenosis versus occlusion of the bilateral common iliac arteries. Brain MRI: 1.Multiple foci of punctate enhancement throughout the cerebellar as well as cerebral hemispheres. 2. This is highly suspect for developing metastatic change. 3. Age-related atrophy and chronic small vessel change. 4. No significant mass effect at this time. Vital Signs: Date Time Temp Pulse Resp B/P (MAP) Pulse Ox O2 Delivery O2 Flow Rate FiO2 08/17/17 13:47 08/17/17 12:09 36.8 66 18 127/70 (89) 94 08/17/17 08:30 97 Room Air 08/17/17 07:48 36.5 74 18 136/64 (88) 97 Room Air 08/17/17 00:08 36.5 100 18 138/66 (90) 90 2.0 08/17/17 00:00 96 Nasal Cannula 2.0 08/16/17 21:24 36.6 56 20 153/71 (98) 95 2.0 08/16/17 19:50 Nasal Cannula 2.0 08/16/17 16:17 Nasal Cannula 2.0 Lab Results: Results Past 24 Hours Test 08/16/17 16:19 08/16/17 20:34 08/17/17 07:57 08/17/17 07:58 Range/Units Bedside Glucose 255 176 108 70-99 mg/dl White Blood Count 7.91 4.8-10.8 K/uL Red Blood Count 4.21 4.7-6.1 M/uL Hemoglobin 12.9 14.0-18.0 g/dL Hematocrit 38.6 42-52 % Mean Corpuscular Volume 91.7 80-100 fL Mean Corpuscular Hemoglobin 30.6 25-34 pg Mean Corpuscular Hemoglobin Concent 33.4 32-36 g/dl Platelet Count 180 130-400 K/uL Mean Platelet Volume 9.1 7.4-10.4 fL Neutrophils (%) (Auto) 84.3 % Lymphocytes (%) (Auto) 11.6 % Monocytes (%) (Auto) 4.0 % Eosinophils (%) (Auto) 0.0 % Basophils (%) (Auto) 0.0 % Neutrophils # (Auto) 6.66 1.4-6.5 K/uL Lymphocytes # (Auto) 0.92 1.2-3.4 K/uL Monocytes # (Auto) 0.32 0.11-0.59 K/uL Eosinophils # (Auto) 0.00 0-0.5 K/uL Basophils # (Auto) 0.00 0-0.2 K/uL RDW Standard Deviation 43.5 36.4-46.3 fL RDW Coefficient of Variation 13.1 11.5-14.5 % Immature Granulocyte % (Auto) 0.1 % Immature Granulocyte # (Auto) 0.01 0.00-0.02 K/uL Sodium Level 140 136-145 mmol/L Potassium Level 4.0 3.5-5.1 mmol/L Chloride Level 103 98-107 mmol/L Carbon Dioxide Level 31 21-32 mmol/L Anion Gap 6.0 3-11 mmol/L Blood Urea Nitrogen 22 7-18 mg/dl Creatinine 1.05 0.60-1.40 mg/dl Est Creatinine Clear Calc Drug Dose 83.8 ml/min Estimated GFR () 87.1 Estimated GFR (Non- 75.2 BUN/Creatinine Ratio 21.3 10-20 Random Glucose 83 70-99 mg/dl Calcium Level 8.1 8.5-10.1 mg/dl Magnesium Level 1.7 1.8-2.4 mg/dl Chemistry Specimen Hemolysis Test 08/17/17 12:03 Range/Units Bedside Glucose 167 70-99 mg/dl
--- NOTE | 2017-08-17 17:18 | Anesthesiology Progress Note ---
Anesthesia Progress Note Date of Service Aug 17, 2017. Progress Notes The patient is scheduled for an infusaport insertion tomorrow. He was consented for MAC sedation with general anesthesia as backup. He was counseled to remain NPO after midnight except for sips of water with pills.
[2017-08-17] MEDS: ROSUVASTATIN CALCIUM 20 MG TAB PO SCH (20:21)
[2017-08-17] MEDS: MoRPHine SULFATE 4 MG/ML 1 ML CARP\\VIAL IV PRN (22:10)
[2017-08-18] VITALS (8 sets, daily range): BP systolic 118–151; BP diastolic 62–73; PULSE 58–65; TEMP 36.6–37.1; O2SAT 93–97; Ht 188 cm; Wt 96.7 kg
[2017-08-18] MEDS: MoRPHine SULFATE 4 MG/ML 1 ML CARP\\VIAL IV PRN ×3 (01:11→12:02)
[2017-08-18] MEDS: LEVOTHYROXINE 75 MCG TAB PO SCH (05:52)
[2017-08-18 06:24] LABS: CALCIUM 7.8 mg/dl (8.5-10.1); CREATININE 1.08 mg/dl (0.60-1.40); POTASSIUM 3.7 mmol/L (3.5-5.1)
[2017-08-18] MEDS: INSULIN ASPART 100 UNITS/ML 3 ML PEN SC SCH ×4 (07:49→21:10)
[2017-08-18] MEDS ORDERED: MIDAZOLAM HCL 1 MG/ML 2ML VIAL ONE (08:56)
[2017-08-18] MEDS ORDERED: FENTANYL CITRATE INJ 50 MCG/1 ML 2 ML VIAL ONE (08:57)
--- NOTE | 2017-08-18 09:16 | History & Physical Bridge Note ---
H&P Re-Evaluation Bridge Note: I have examined the patient, reviewed the History & Physical and in the interval since the performance of the History & Physical I have noted the following changes of clinical significance: No changes noted
[2017-08-18] MEDS ORDERED: BACITRACIN OINT 15 GM TUBE ONE (09:17)
[2017-08-18] MEDS ORDERED: LIDOCAINE HCL 1% 20 ML VIAL ONE (09:17)
[2017-08-18] MEDS ORDERED: BUPIVACAINE 0.5 % 5 MG/1 ML MPF 30ML VIAL ONE (09:17)
[2017-08-18] MEDS ORDERED: CEFAZOLIN SOD 2000MG/15 ML IV PUSH ONE (09:18)
[2017-08-18] MEDS ORDERED: ATROPINE SULFATE 0.1 MG/ML 5ML SYR IV PRN (09:45)
[2017-08-18] MEDS ORDERED: EpHEDrine SULFATE INJ 50 MG/ML AMP IV PRN (09:45)
[2017-08-18] MEDS ORDERED: PROPOFOL IV EMULSION 10 MG/ML 20 ML VIAL ONE (10:08)
--- NOTE | 2017-08-18 10:28 | [facility] Post Operative Brief Note ---
Immediate Operative Summary Operative Date August 18, 2017. 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
--- NOTE | 2017-08-18 10:32 | Surgery Progress Note ---
Surgery Progress Note Date of Service August 18, 2017. Objective Vital Signs: Date Time Temp Pulse Resp B/P (MAP) Pulse Ox O2 Delivery O2 Flow Rate FiO2 08/18/17 08:30 Room Air 08/18/17 07:46 37.0 60 18 125/67 (86) 96 Room Air 08/18/17 04:00 36.6 65 20 118/69 (85) 97 Room Air 08/18/17 00:51 36.6 60 20 125/62 (83) 94 Room Air 08/18/17 00:00 Nasal Cannula 2.0 08/17/17 19:09 36.3 61 20 135/73 (93) 92 Room Air 08/17/17 16:30 97 Room Air 08/17/17 15:17 36.5 57 22 128/78 (95) 96 Nasal Cannula 2.0 08/17/17 13:47 08/17/17 12:09 36.8 66 18 127/70 (89) 94 Laboratory Results: Results Past 24 Hours Test 08/17/17 12:03 08/17/17 16:56 08/17/17 20:06 08/18/17 05:23 Range/Units Bedside Glucose 167 89 278 70-99 mg/dl Sodium Level 140 136-145 mmol/L Potassium Level 3.7 3.5-5.1 mmol/L Chloride Level 103 98-107 mmol/L Carbon Dioxide Level 34 21-32 mmol/L Anion Gap 3.0 3-11 mmol/L Blood Urea Nitrogen 23 7-18 mg/dl Creatinine 1.08 0.60-1.40 mg/dl Est Creatinine Clear Calc Drug Dose 81.4 ml/min Estimated GFR () 84.2 Estimated GFR (Non- 72.7 BUN/Creatinine Ratio 21.5 10-20 Random Glucose 57 70-99 mg/dl Calcium Level 7.8 8.5-10.1 mg/dl Magnesium Level 1.7 1.8-2.4 mg/dl Test 08/18/17 07:11 08/18/17 07:39 08/18/17 08:09 08/18/17 09:27 Range/Units Bedside Glucose 76 66 108 82 70-99 mg/dl Assessment & Plan attempted port insertion on left subclavian vein , under U/S check- tumor blockage left internal jugular vein and left subclavian vein, I recommend that pt should get PICC line which is safe for patient.
--- NOTE | 2017-08-18 10:52 | Anesthesiology Progress Note ---
Anesthesia Post Op Note Date & Time August 18, 2017 at 10:52 Vital Signs Pain Intensity: 0 Vital Signs Past 12 Hours Date Time Temp Pulse Resp B/P (MAP) Pulse Ox O2 Delivery O2 Flow Rate FiO2 08/18/17 10:40 60 16 137/74 96 Oxymask 10 08/18/17 10:31 36.5 73 16 122/68 94 Oxymask 10 08/18/17 08:30 Room Air 08/18/17 07:46 37.0 60 18 125/67 (86) 96 Room Air 08/18/17 04:00 36.6 65 20 118/69 (85) 97 Room Air 08/18/17 00:51 36.6 60 20 125/62 (83) 94 Room Air 08/18/17 00:00 Nasal Cannula 2.0 Notes Mental Status: alert / awake / arousable, participated in evaluation Pt Amnestic to Procedure: Yes Nausea / Vomiting: adequately controlled Pain: adequately controlled Airway Patency, RR, SpO2: stable & adequate BP & HR: stable & adequate Hydration State: stable & adequate Anesthetic Complications: no major complications apparent
[2017-08-18] MEDS: INSULIN GLARGINE SOLOSTAR 100 UNITS/ML 3 ML PEN SC SCH ×2 (11:23→20:00)
[2017-08-18] MEDS: FLUTICASONE PROPIONATE NA SPR 16 GM BTL NAE SCH (11:32)
[2017-08-18] MEDS: HYDROCHLOROTHIAZIDE 25 MG TAB PO SCH (11:32)
[2017-08-18] MEDS: ALLOPURINOL 300 MG TAB PO SCH (11:32)
[2017-08-18] MEDS: PANTOprazole SOD 40 MG TAB PO SCH (11:32)
[2017-08-18] MEDS: GABAPENTIN 300 MG CAP PO SCH ×3 (11:32→21:07)
[2017-08-18] MEDS: METOPROLOL SUCC 50MG EXT REL TAB PO SCH (11:32)
[2017-08-18] MEDS: ASPIRIN 81 MG ECTAB PO SCH (11:33)
[2017-08-18] MEDS: LISINOPRIL 40 MG TAB PO SCH (11:33)
[2017-08-18] MEDS: AMLODIPINE BESYLATE 5 MG TAB PO SCH (11:33)
--- NOTE | 2017-08-18 11:39 | DIAGNOSTIC IMAGING REPORT ---
CHEST ONE VIEW PORTABLE CLINICAL HISTORY: S/P attempted insertion port on left subclavian vein COMPARISON STUDY: Chest CT T and chest radiograph August 13, 2017. FINDINGS: There is no pneumothorax. A trace left pleural effusion is noted. An irregular right upper lobe nodule is again noted as well as upper mediastinal widening. This has not changed since exam of August 13, 2017. There is been interval development of left midlung opacity. IMPRESSION: 1. No pneumothorax. 2. Interval development of a left midlung airspace opacity which favors pneumonia. 3. Redemonstration of a suspicious irregular right upper lobe nodule and upper mediastinal widening due to lymphadenopathy, as shown on prior chest CT. Electronically signed by: Mike Griffin M.D. 08/18/2017 11:37 AM Dictated Date/Time: 08/18/2017 11:34 AM
--- NOTE | 2017-08-18 11:41 | Progress Note ---
Internal Med Progress Note Date of Service: August 18, 2017. Provider Documentation: SUBJECTIVE: The patient was seen and examined in the medical floor. 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 A port placement failed this morning Denies had to have any excess symptoms as of today and wants to go home OBJECTIVE: Vital Signs-as noted below Exam: General-no distress at rest Eyes-normal ENT-normal Neck-minimal fullness of of neck bilaterally Lungs-decreased breath sounds both sides with occasional wheezing Heart-regular, no murmur appreciated Abdomen-benign, soft, nontender. Bowel sounds present Extremities-trace edema bilaterally Neuro-alert and awake, oriented 3 Generally weak, no focal neuro deficit Lab data as noted below. ASSESSMENT & PLAN: Metastatic small cell carcinoma of the lung: Possible SVC syndrome S/P ultrasound-guided fine-needle aspiration of a left neck mass/lymph node. Pathology:Small cell carcinoma CTs and MRI are suggestive of Metastases in Lung,Mediastinum,Liver and brain Bone Scan: No mets Appreciate Oncology/Radiation oncology Help Completed 1st cycle of chemotherapy with Cisplatin and Etoposide as per ,Next cycle in 3 weeks Continue allopurinol to prevent tumor lysis Palliative radiation for SVC syndrome and metastatic disease per Radiation Oncology Appreciate CT surgery help Failed repeated attempts to put A-Port .No need to have any PICC placement now SVC stenting not recommended by Vascular currently Video swallow: No evidence of tracheal aspiration Speech Therapy Discharge Instructions * 1.Moist Dental soft diet. Thin liquids. 2.Aspiration precautions, straws OK. Fully upright for meals and for 30 minutes after meals. 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 There is a 4.0 cm right upper lobe mass lesion. This should be considered neoplasm until proven otherwise. 2. Additional subcentimeter nodules are seen in the right upper lobe with associated intralobular septal thickening. This likely represents lymphangitic spread of tumor. 3. There is bulky mediastinal lymphadenopathy, left cervical adenopathy, and probable right hilar adenopathy. This should also be considered neoplasm until proven otherwise. 4. Small pleural effusions are identified. 5. There is a small pericardial effusion. 6. Bilateral adrenal nodules are indeterminant. CT ABD: 1. Multiple subtle hypodense right hepatic lobe lesions which are indeterminate but worrisome for metastatic disease. These measure up to 1.6 cm. 2. Indeterminate bilateral adrenal nodules. These may reflect metastatic disease or lipid poor adenomas. 3. No abdominal or pelvic lymphadenopathy. 4. Extensive aortoiliac atherosclerotic plaque with stenosis versus occlusion of the bilateral common iliac arteries. Brain MRI: 1.Multiple foci of punctate enhancement throughout the cerebellar as well as cerebral hemispheres. 2. This is highly suspect for developing metastatic change. 3. Age-related atrophy and chronic small vessel change. 4. No significant mass effect at this time. DISPOSITION Likely home this afternoon. Vital Signs: Date Time Temp Pulse Resp B/P (MAP) Pulse Ox O2 Delivery O2 Flow Rate FiO2 08/18/17 11:22 36.8 63 18 151/73 (99) 97 2.0 08/18/17 10:50 36.4 63 16 136/71 96 Nasal Cannula 2 08/18/17 10:40 60 16 137/74 96 Oxymask 10 08/18/17 10:31 36.5 73 16 122/68 94 Oxymask 10 08/18/17 08:30 Room Air 08/18/17 07:46 37.0 60 18 125/67 (86) 96 Room Air 08/18/17 04:00 36.6 65 20 118/69 (85) 97 Room Air 08/18/17 00:51 36.6 60 20 125/62 (83) 94 Room Air 08/18/17 00:00 Nasal Cannula 2.0 08/17/17 19:09 36.3 61 20 135/73 (93) 92 Room Air 08/17/17 16:30 97 Room Air 08/17/17 15:17 36.5 57 22 128/78 (95) 96 Nasal Cannula 2.0 08/17/17 13:47 08/17/17 12:09 36.8 66 18 127/70 (89) 94 Lab Results: Results Past 24 Hours Test 08/17/17 12:03 08/17/17 16:56 08/17/17 20:06 08/18/17 05:23 Range/Units Bedside Glucose 167 89 278 70-99 mg/dl Sodium Level 140 136-145 mmol/L Potassium Level 3.7 3.5-5.1 mmol/L Chloride Level 103 98-107 mmol/L Carbon Dioxide Level 34 21-32 mmol/L Anion Gap 3.0 3-11 mmol/L Blood Urea Nitrogen 23 7-18 mg/dl Creatinine 1.08 0.60-1.40 mg/dl Est Creatinine Clear Calc Drug Dose 81.4 ml/min Estimated GFR () 84.2 Estimated GFR (Non- 72.7 BUN/Creatinine Ratio 21.5 10-20 Random Glucose 57 70-99 mg/dl Calcium Level 7.8 8.5-10.1 mg/dl Magnesium Level 1.7 1.8-2.4 mg/dl Test 08/18/17 07:11 08/18/17 07:39 08/18/17 08:09 08/18/17 09:27 Range/Units Bedside Glucose 76 66 108 82 70-99 mg/dl Test 08/18/17 10:44 Range/Units Bedside Glucose 76 70-99 mg/dl
[2017-08-18] MEDS ORDERED: OXYCODONE/ACETAMINOPHEN 5-325 TAB PO PRN (13:00)
--- NOTE | 2017-08-18 13:08 | Hematology/Oncology Prog Note ---
Hematology/Onc Progress Note Date of Service August 18, 2017. Subjective Rounded on patient at bedside. He denies having nausea, vomiting, bowel changes , numbness/tingling of extremities. He is breathing better and swelling has decreased in neck. He was not able to have Mediport placed prior to discharge due to extent of bulky adenopathy. Review of Systems: Constitutional: No fever, No chills Respiratory: + see HPI Abdomen: No nausea, No vomiting, No diarrhea Vital Signs Vital Signs Past 12 Hours Date Time Temp Pulse Resp B/P (MAP) Pulse Ox O2 Delivery O2 Flow Rate FiO2 08/18/17 11:35 36.9 62 18 145/72 (96) 96 08/18/17 11:22 36.8 63 18 151/73 (99) 97 2.0 08/18/17 10:50 36.4 63 16 136/71 96 Nasal Cannula 2 08/18/17 10:40 60 16 137/74 96 Oxymask 10 08/18/17 10:31 36.5 73 16 122/68 94 Oxymask 10 08/18/17 08:30 Room Air 08/18/17 07:46 37.0 60 18 125/67 (86) 96 Room Air 08/18/17 04:00 36.6 65 20 118/69 (85) 97 Room Air Physical Exam ENMT: hearing grossly normal Neck: supple, pertinent finding (decreasing bilateral cervical adnepathy) Lungs: Respiratory Effort: no dyspnea Laboratory 08/18/17 05:23 Test 08/18/17 05:23 08/18/17 11:52 Anion Gap 3.0 mmol/L (3-11) Est Creatinine Clear Calc Drug Dose 81.4 ml/min Estimated GFR () 84.2 Estimated GFR (Non- 72.7 BUN/Creatinine Ratio 21.5 (10-20) Calcium Level 7.8 mg/dl (8.5-10.1) Magnesium Level 1.7 mg/dl (1.8-2.4) Bedside Glucose 72 mg/dl (70-99) CXR from 08/18/2017: 1. No pneumothorax. 2. Interval development of a left midlung airspace opacity which favors pneumonia. 3. Redemonstration of a suspicious irregular right upper lobe nodule and upper mediastinal widening due to lymphadenopathy, as shown on prior chest CT. Assessment & Plan 1. 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 Left mid lung opacity on CXR from 08/18/17- consistent with pneumonia * Patient is s/p 1 cycle of cisplatin/etoposide without any major toxicity * His brain MRI over the weekend shows suspicious findings for metastatic disease- RO to address * Bone scan is negative for mets * Patient did not develop tumor lysis syndrome * Patient will need a port for chemotherapy- attempt made today by general surgery but due to to bulky adenopathy from SCLC, procedure had to be aborted * Patient will have to receive chemotherapy peripherally for next few cycles and after decrease in adenopathy, will retry for Mediport * Reviewed CXR from today after failed port insertion- radiology stating patient may have left mid lung pneumonia- have made Dr. Nichols aware to address * Patient was possibly going to be discharged today prior to pneumonia finding- ultimately up to hospitalist team * Patient requires Med Onc follow up in [address] Germain is attending medical oncologist. I have discussed the patient's case, impression and plan with Galilea Campos. Her note reflects my findings and plan. Dr. Sahil Germain Hem/Onc
--- NOTE | 2017-08-18 13:43 | OPERATIVE REPORT ---
DATE OF OPERATION: 08/18/2017 PREOPERATIVE DIAGNOSIS: Lung cancer, severe vena cava syndrome. POSTOPERATIVE DIAGNOSIS: Lung cancer, severe vena cava syndrome. PROCEDURE: Attempted insertion port on the left subclavian vein based on the tumor blockage of vein. SURGEON: Saurav Cao MD QUALITY PROCESS AUDITOR: Keiko Gonsalves PA-C ANESTHESIA: Conscious sedation plus local. ESTIMATED BLOOD LOSS: About 1 mL. FINDINGS: Tumor blockage in left subclavian vein and internal jugular vein, could not insertion port on the left subclavian vein based on tumor blockages of the vein. COMPLICATIONS: None. INDICATIONS FOR THE PROCEDURE: This is a 62-year-old gentleman who was admitted to hospital for lung cancer with severe vena cava syndrome and the patient is referred for a port insertion for chemotherapy. I did talk to the patient about the benefit, risk and alternate procedure. I indicated the risks may include not limited such as bleeding, infection, blood clot, injury to the lung, dysfunction of catheter, even . The patient understands. He signed informed consent and I answered all questions. DETAILS OF PROCEDURE: We brought the patient to the OR, put the patient in the supine position. The patient received SCDs on bilateral legs to prevent DVT. Also, patient received 2 grams of Ancef IV for prophylactic antibiotic. The patient received conscious sedation by the anesthesiology. The left side of upper chest, neck was properly draped in routine sterile fashion. After time out, I injected the local anesthesia on the left side upper chest by using 1% lidocaine mixed with 0.5% Marcaine then I used a 15-gauge needle to try to puncture the left side subclavian vein and we could not get any blood return. At this moment, I decided to use the ultrasound to detect his left internal jugular vein. Then, we found the tumor in the left internal jugular vein and also the blockages in the left subclavian vein and based on the tumor block in the vein it is not safe to use this vein. I decided to the procedure and I recommend to do the PICC line instead of the port, as it is safer for the patient. Then, we stopped the procedure there and removed all the drapes and the patient tolerated the procedure well. All instrument, needle and sponge count were correct x2 at the end of case and patient transferred to recovery room in stable condition and after the patient's procedure, I did talk to the patient and the patient's about the OR finding and we informed them we could not put a port in based on the tumor blockage in the vein. I recommended to do a PICC line instead of port. They understand. They agreed. I attest to the content of the Intraoperative Record and any orders documented therein. Any exception s are noted below.
[2017-08-18] MEDS ORDERED: LEVOFLOXACIN 500 MG TAB PO ONE (14:45)
[2017-08-18] MEDS ORDERED: HYDROCODONE/ACETAMIN 5/325MG TAB PO ONE (15:44)
[2017-08-18] MEDS ORDERED: HYDROCODONE/ACETAMIN 5/325MG TAB PO PRN ×2 (15:45→18:45)
[2017-08-18] MEDS: ROSUVASTATIN CALCIUM 20 MG TAB PO SCH (21:08)
[2017-08-18] MEDS: HYDROCODONE/ACETAMIN 5/325MG TAB PO PRN (22:52)
[2017-08-19 04:00] VITALS: BP 119/71; PULSE 72; TEMP 37.4; O2SAT 96
[2017-08-19] MEDS: HYDROCODONE/ACETAMIN 5/325MG TAB PO PRN ×3 (04:08→12:39)
[2017-08-19] MEDS ORDERED: CEFAZOLIN SOD 2000MG/15 ML IV PUSH IV ONE (06:00)
[2017-08-19] MEDS: LEVOTHYROXINE 75 MCG TAB PO SCH (06:11)
[2017-08-19 07:16] VITALS: BP 144/74; PULSE 60; TEMP 36.8; O2SAT 95
[2017-08-19] MEDS: GABAPENTIN 300 MG CAP PO SCH ×2 (08:03→12:42)
[2017-08-19] MEDS: PANTOprazole SOD 40 MG TAB PO SCH (08:03)
[2017-08-19] MEDS: METOPROLOL SUCC 50MG EXT REL TAB PO SCH (08:03)
[2017-08-19] MEDS: ASPIRIN 81 MG ECTAB PO SCH (08:04)
[2017-08-19] MEDS: HYDROCHLOROTHIAZIDE 25 MG TAB PO SCH (08:04)
[2017-08-19] MEDS: ALLOPURINOL 300 MG TAB PO SCH (08:05)
[2017-08-19] MEDS: AMLODIPINE BESYLATE 5 MG TAB PO SCH (08:05)
[2017-08-19] MEDS: LISINOPRIL 40 MG TAB PO SCH (08:05)
[2017-08-19] MEDS: FLUTICASONE PROPIONATE NA SPR 16 GM BTL NAE SCH (08:06)
[2017-08-19] MEDS: INSULIN ASPART 100 UNITS/ML 3 ML PEN SC SCH ×2 (08:13→12:42)
[2017-08-19] MEDS: INSULIN GLARGINE SOLOSTAR 100 UNITS/ML 3 ML PEN SC SCH (08:15)
[2017-08-19] MEDS ORDERED: LEVOFLOXACIN 500 MG TAB PO SCH (11:00)
[2017-08-19 11:01] VITALS: BP 114/66; PULSE 63; TEMP 36.8; O2SAT 95
[2017-08-19 11:04] LABS: HEMATOCRIT 40.5 % (42-52); HEMOGLOBIN 13.7 g/dL (14.0-18.0); MEAN CORPUSCULAR HEMOGLOBIN 30.8 pg (25-34); MEAN CORPUSCULAR HGB CONC 33.8 g/dl (32-36); PLATELET COUNT 165 K/uL (130-400); RED CELL DISTRIBUTION WIDTH CV 12.8 % (11.5-14.5); RED CELL DISTRIBUTION WIDTH SD 42.4 fL (36.4-46.3)
[2017-08-19 11:24] LABS: CALCIUM 8.5 mg/dl (8.5-10.1); CREATININE 1.01 mg/dl (0.60-1.40); POTASSIUM 3.8 mmol/L (3.5-5.1)
[2017-08-19] MEDS ORDERED: MAGNESIUM SULFATE 1GM / D5W 100 ML IV STA (12:48)
--- NOTE | 2017-08-19 12:53 | Progress Note ---
Internal Med Progress Note Date of Service: August 19, 2017. Provider Documentation: SUBJECTIVE: The patient was seen and examined in the medical floor. 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 A port placement failed this morning Denies had to have any excess symptoms as of today and wants to go home Complains of moderate to severe pain in chest Has been on Hydrocodone 2 pills q4 hourly Pain is reasonable and denies any other symptoms Likely to be discharged today OBJECTIVE: Vital Signs-as noted below Exam: General-no distress at rest Eyes-normal ENT-normal Neck-minimal fullness of of neck bilaterally Lungs-decreased breath sounds both sides with occasional wheezing Heart-regular, no murmur appreciated Abdomen-benign, soft, nontender. Bowel sounds present Extremities-trace edema bilaterally Neuro-alert and awake, oriented 3 Generally weak, no focal neuro deficit Lab data as noted below. ASSESSMENT & PLAN: Metastatic small cell carcinoma of the lung: Possible SVC syndrome S/P ultrasound-guided fine-needle aspiration of a left neck mass/lymph node. Pathology:Small cell carcinoma CTs and MRI are suggestive of Metastases in Lung,Mediastinum,Liver and brain Bone Scan: No mets Appreciate Oncology/Radiation oncology Help Completed 1st cycle of chemotherapy with Cisplatin and Etoposide as per ,Next cycle in 3 weeks Continue allopurinol to prevent tumor lysis Palliative radiation for SVC syndrome and metastatic disease per Radiation Oncology Appreciate CT surgery help Failed repeated attempts to put A-Port .No need to have any PICC placement now SVC stenting not recommended by Vascular currently Video swallow: No evidence of tracheal aspiration Speech Therapy Discharge Instructions * 1.Moist Dental soft diet. Thin liquids. 2.Aspiration precautions, straws OK. Fully upright for meals and for 30 minutes after meals. Op appointment with PCP and Oncology and Continue RT Pneumonia likely postobstructive Started on Levaquin No fever and or increase in WCC Continue Levaquin for 10 days in total Chest pain due to Lung Carcinoma with mets Started on oral Hydrocodone May need to increase /change the medication for better control of pain DM II H A1c: 6.4 Hold oral agent continue ISS, Lantus monitor BGs -remains stable HTN Stable Continue amlodipine, lisinopril, metoprolol, HCTZ Hypothyroidism: TSH: normal Continue levothyroxine CAD S/P Stent to LAD Continue Aspirin, statin, beta-fox No acute issue Chronic back pain: Continue gabapentin GERD Continue PPI DVT Px: Lovenox SQ 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 There is a 4.0 cm right upper lobe mass lesion. This should be considered neoplasm until proven otherwise. 2. Additional subcentimeter nodules are seen in the right upper lobe with associated intralobular septal thickening. This likely represents lymphangitic spread of tumor. 3. There is bulky mediastinal lymphadenopathy, left cervical adenopathy, and probable right hilar adenopathy. This should also be considered neoplasm until proven otherwise. 4. Small pleural effusions are identified. 5. There is a small pericardial effusion. 6. Bilateral adrenal nodules are indeterminant. CT ABD: 1. Multiple subtle hypodense right hepatic lobe lesions which are indeterminate but worrisome for metastatic disease. These measure up to 1.6 cm. 2. Indeterminate bilateral adrenal nodules. These may reflect metastatic disease or lipid poor adenomas. 3. No abdominal or pelvic lymphadenopathy. 4. Extensive aortoiliac atherosclerotic plaque with stenosis versus occlusion of the bilateral common iliac arteries. Brain MRI: 1.Multiple foci of punctate enhancement throughout the cerebellar as well as cerebral hemispheres. 2. This is highly suspect for developing metastatic change. 3. Age-related atrophy and chronic small vessel change. 4. No significant mass effect at this time. DISPOSITION Likely home this afternoon. Vital Signs: Date Time Temp Pulse Resp B/P (MAP) Pulse Ox O2 Delivery O2 Flow Rate FiO2 08/19/17 11:01 36.8 63 18 114/66 (82) 95 Room Air 08/19/17 08:00 Room Air 08/19/17 07:16 36.8 60 18 144/74 (97) 95 Room Air 08/19/17 04:00 37.4 72 20 119/71 (87) 96 Room Air 08/19/17 00:00 Room Air 08/18/17 23:04 36.6 58 20 118/64 (82) 94 Room Air 08/18/17 16:00 93 Room Air 08/18/17 15:14 37.1 61 18 119/72 (88) 93 Room Air Lab Results: Results Past 24 Hours Test 08/18/17 16:46 08/18/17 20:31 08/19/17 07:36 08/19/17 10:51 Range/Units Bedside Glucose 138 207 114 70-99 mg/dl White Blood Count 5.10 4.8-10.8 K/uL Red Blood Count 4.45 4.7-6.1 M/uL Hemoglobin 13.7 14.0-18.0 g/dL Hematocrit 40.5 42-52 % Mean Corpuscular Volume 91.0 80-100 fL Mean Corpuscular Hemoglobin 30.8 25-34 pg Mean Corpuscular Hemoglobin Concent 33.8 32-36 g/dl RDW Standard Deviation 42.4 36.4-46.3 fL RDW Coefficient of Variation 12.8 11.5-14.5 % Platelet Count 165 130-400 K/uL Mean Platelet Volume 9.0 7.4-10.4 fL Sodium Level 137 136-145 mmol/L Potassium Level 3.8 3.5-5.1 mmol/L Chloride Level 100 98-107 mmol/L Carbon Dioxide Level 31 21-32 mmol/L Anion Gap 5.0 3-11 mmol/L Blood Urea Nitrogen 21 7-18 mg/dl Creatinine 1.01 0.60-1.40 mg/dl Est Creatinine Clear Calc Drug Dose 87.0 ml/min Estimated GFR () 91.3 Estimated GFR (Non- 78.8 BUN/Creatinine Ratio 20.3 10-20 Random Glucose 134 70-99 mg/dl Calcium Level 8.5 8.5-10.1 mg/dl Magnesium Level 1.5 1.8-2.4 mg/dl Test 08/19/17 11:26 Range/Units Bedside Glucose 138 70-99 mg/dl
[2017-08-19 13:10] VITALS: BP 114/66; PULSE 63; TEMP 36.8; O2SAT 95
[2017-08-19] MEDS ORDERED: LVQ500 PO (13:56)
[2017-08-19] MEDS ORDERED: HYDR-5688 PO (13:56)
--- NOTE | 2017-08-19 14:03 | Discharge Instructions ---
Discharge Instructions Date of Service August 19, 2017. Admission Reason for Admission: Lung Mass, Neck Mass Discharge Discharge Diagnosis / Problem: Ca lung with Mets,Pneumonia Discharge Goals Goal(s): Prevent Disease Progression Activity Recommendations Activity Limitations: resume your previous activity . Instructions / Follow-Up Instructions / Follow-Up Dr Pérez on 08/24/17 at 10:45 AM .Keep appointment with Dr Germain and Radiation therapy Current Hospital Diet Patient's current hospital diet: Diabetes Type 2 Diet Discharge Diet Recommended Diet: Diabetes Type 2 Diet Procedures Procedures Performed: attemped Infusaport Insertion Pending Studies Studies pending at discharge: no Laboratory Results Hemoglobin A1c Test 08/14/17 05:31 Range/Units Estimated Average Glucose 137 mg/dl Hemoglobin A1c 6.4 H 4.5-5.6 % Medical Emergencies . Who to Call and When: Medical Emergencies: If at any time you feel your situation is an emergency, please call 911 immediately. . Non-Emergent Contact Non-Emergency issues call your: Primary Care Provider . Past History Medical & Surgical History: (1) Pneumonia (2) Metastatic cancer (3) Small cell lung cancer (4) Diabetes (5) CAD (coronary artery disease) (6) HTN (hypertension) (7) Hypothyroidism (8) Chronic low back pain . "Provider Documentation" section prepared by Jose Nichols. .
[2017-08-19] MEDS ORDERED: MAGNESIUM CHLORIDE 64MG DELAYED REL TAB PO ONE (14:15)
[2017-08-19] MEDS ORDERED: ALL300 PO (14:21)
--- NOTE | 2017-08-19 16:43 | Discharge Summary ---
Discharge Summary Date of Service August 19, 2017. Discharge Summary Admission Date: Aug 13, 2017 at 15:03 Discharge Date: August 19, 2017 Discharge Disposition: Home Principal Diagnosis: Ca lung with Mets,Pneumonia Secondary Diagnoses/Problems: Please see H&P and Hospital Progress note Consultations: Oncology and Radiation Oncology Medication Reconciliation New Medications: Allopurinol (Allopurinol) 300 Mg Tab 300 MG PO DAILY for 30 Days, #30 TAB Hydrocodone/Acetaminophen 5MG/325MG ([place] 5MG/325MG) Tab 1-2 TAB PO Q4H PRN for Pain for 7 Days, #30 TAB PRN PAIN Levofloxacin (Levofloxacin) 500 Mg Tab 500 MG PO DAILY@11 for 8 Days, #8 TAB Continued Medications: Amlodipine (Norvasc) 10 Mg Tab 10 MG PO DAILY, TAB Aspirin (Aspirin Ec) 81 Mg Tab 81 MG PO DAILY Fluticasone Propionate (Nasal) (Flonase Allergy Relief) 50 Mcg/Act Spr 2 SPRAY DESTIN DAILY Gabapentin (Neurontin) 300 Mg Cap 300 MG PO TID, CAP Glimepiride (Glimepiride) 1 Mg Tab 1 MG PO DAILY TAKE THIS MEDICATION WITH THE FIRST MAIN MEAL 0F THE DAY. Hydrochlorothiazide (Hctz) 12.5 Mg Cap 1 CAP PO DAILY for 30 Days, #30 CAP 5 Refills Levothyroxine Sodium (Levothyroxine Sodium) 75 Mcg Tab 75 MCG PO DAILY Lisinopril (Zestril) 40 Mg Tab 40 MG PO DAILY, TAB Melatonin (Kp Melatonin) 3 Mg Tab 1 TAB PO HS for 30 Days, #30 TAB 2 Refills Metformin Hcl (Glucophage) 1,000 Mg Tab 1000 MG PO BID, TAB Metoprolol Succ (Toprol Xl) (Toprol-Xl) 50 Mg Tabcr 50 MG PO DAILY, TAB Nitroglycerin (Nitrostat) 0.4 Mg Sub 0.4 MG UT UD PRN for Chest Pain, BTL PLACE ONE TABLET UNDER THE TONGUE EVERY 5 MINUTES IF NEEDED FOR CHEST PAIN. Pantoprazole Sodium (Protonix) 40 Mg Tab 1 TAB PO DAILY for 30 Days, #30 TAB 5 Refills Rosuvastatin Calcium (Crestor) 40 Mg Tab 40 MG PO QPM, TAB Tramadol (Ultram) 50 Mg Tab 50 MG PO Q6 PRN for Pain, TAB Zolpidem Tartrate (Zolpidem Tartrate) 10 Mg Tab 10 MG PO HS PRN for Sleep Admission Information HPI (per Admitting provider): Pt is 62 y/o M with PMH DM II, HTN, CAD S/P LILLI LAD 2 in 2010, chronic RBBB, chronic low back pain, hypothyroidism sent to ER for neck swelling and mass. Patient seen outpatient at PCP office today for neck swelling and had stat CT scan and sent to ER for further evaluation. Patient reports for past month has noticed some dysphagia, hoarseness, sore throat and bilateral neck pain. Past week has noticed bilateral neck swelling and difficulty with range of motion neck secondary to neck swelling. States it has been drooling. During the day he is able to swallow secretions and has been eating and drinking. Has discomfort swallowing but denies any choking or food bolus sensation. Past week been feeling lightheaded with walking. Denies syncope. Patient states has been having night sweats. Denies fever, N/V/D/C, MOURA, vision changes, CP, SOB, orthopnea, palpitations, cough, otalgia, abdominal pain, paresthesias, weakness , extremity weakness, extremity edema, rashes, urinary symptoms, weight loss. 08/13/17 CT neck with contrast: Impression: 1 conglomerate superior mediastinal and cervical lymphadenopathy and partially imaged right upper lobe lung mass. Findings are highly concerning for malignancy, particularly lymphoma or metastatic lung cancer. 2. Massive lymph adenopathy partially surrounds the trachea, encases the innominate artery and severely compresses and may invade the superior vena cava. 3. Diffuse subcutaneous, retropharyngeal, hypopharyngeal and laryngeal edema may be secondary to venous congestion. Past Medical/Surgical History Medical Problems: (1) Abrasion Status: Resolved (2) CAD (coronary artery disease) Permanent Comment: s/p LILLI LAD x 2, 2010 Status: Chronic (3) Chronic low back pain Status: Chronic (4) Crush injury forearm Status: Resolved (5) Diabetes Status: Chronic (6) HTN (hypertension) Status: Chronic (7) Hypothyroidism Status: Chronic (8) RBBB Status: Chronic Surgical Problems: (1) History of lumbar spinal fusion Status: Resolved (2) Hx of cardiac cath Permanent Comment: 2010- LILLI to LAD x 2 Status: Resolved Family History Cancer (Breast [place]-mother) Social History Smoking Status: Former Smoker (Quit 2004. Smoked 1 PPD day 30 years) Smokeless Tobacco Use: No Alcohol Use: Rare Drug Use: none Marital Status: Housing status: lives with family Occupational Status: retired Allergies Coded Allergies: Naproxen (Verified Allergy, Unknown, ., 08/13/17) Home Medications Scheduled Amlodipine (Norvasc), 10 MG PO DAILY Aspirin (Aspirin Ec), 81 MG PO DAILY Fluticasone Propionate (Nasal) (Flonase Allergy Relief), 2 SPRAY DESTIN DAILY Gabapentin (Neurontin), 300 MG PO TID Glimepiride (Glimepiride), 1 MG PO DAILY Hydrochlorothiazide (Hctz), 1 CAP PO DAILY Levothyroxine Sodium (Levothyroxine Sodium), 75 MCG PO DAILY Lisinopril (Zestril), 40 MG PO DAILY Melatonin (Kp Melatonin), 1 TAB PO HS Metformin Hcl (Glucophage), 1,000 MG PO BID Metoprolol Succ (Toprol Xl) (Toprol-Xl), 50 MG PO DAILY Pantoprazole Sodium (Protonix), 1 TAB PO DAILY Rosuvastatin Calcium (Crestor), 40 MG PO QPM Scheduled PRN Nitroglycerin (Nitrostat), 0.4 MG UT UD PRN for Chest Pain Tramadol (Ultram), 50 MG PO Q6 PRN for Pain Zolpidem Tartrate (Zolpidem Tartrate), 10 MG PO HS PRN for Sleep Review of Systems See HPI for pertinent positives & negatives. All other systems reviewed and were otherwise negative Physical Exam H&P v2 Physical Exam Vital Signs Date Time Temp Pulse Resp B/P (MAP) Pulse Ox O2 Delivery O2 Flow Rate FiO2 08/13/17 15:02 71 18 120/67 95 Room Air 08/13/17 13:58 76 20 131/67 95 Room Air 08/13/17 13:25 95 Room Air 08/13/17 13:23 75 08/13/17 13:12 36.8 76 20 119/69 97 Room Air General Appearance: WD/WN, no apparent distress Head: normocephalic, atraumatic Eyes: normal inspection, PERRL, EOMI, sclerae normal ENT: hearing grossly normal, pharynx normal (No edema or erythema noted. Uvula midline. Tongue without erythema or edema.), + pertinent finding (Mucous membranes moist) Neck: trachea midline, + pertinent finding (Diffuse edema. Positive lymphadenopathy) Respiratory/Chest: lungs clear, normal breath sounds, no respiratory distress Cardiovascular: regular rate, rhythm, no murmur, normal peripheral pulses Abdomen/GI: normal bowel sounds, non tender, soft Back: no CVA tenderness Extremities/Musculoskelatal: normal inspection, no calf tenderness, no pedal edema, normal range of motion, non-tender Neurologic/Psych: alert, normal mood/affect, oriented x 3 Skin: normal color, warm/dry Diagnostics H&P v2 Diagnostics Laboratory Results Results Past 24 Hours Test 08/13/17 13:25 08/13/17 14:20 Range/Units White Blood Count 6.72 4.8-10.8 K/uL Red Blood Count 4.54 4.7-6.1 M/uL Hemoglobin 14.1 14.0-18.0 g/dL Hematocrit 41.9 42-52 % Mean Corpuscular Volume 92.3 80-100 fL Mean Corpuscular Hemoglobin 31.1 25-34 pg Mean Corpuscular Hemoglobin Concent 33.7 32-36 g/dl Platelet Count 195 130-400 K/uL Mean Platelet Volume 9.1 7.4-10.4 fL Neutrophils (%) (Auto) 62.1 % Lymphocytes (%) (Auto) 26.0 % Monocytes (%) (Auto) 8.6 % Eosinophils (%) (Auto) 2.7 % Basophils (%) (Auto) 0.3 % Neutrophils # (Auto) 4.17 1.4-6.5 K/uL Lymphocytes # (Auto) 1.75 1.2-3.4 K/uL Monocytes # (Auto) 0.58 0.11-0.59 K/uL Eosinophils # (Auto) 0.18 0-0.5 K/uL Basophils # (Auto) 0.02 0-0.2 K/uL RDW Standard Deviation 45.3 36.4-46.3 fL RDW Coefficient of Variation 13.4 11.5-14.5 % Immature Granulocyte % (Auto) 0.3 % Immature Granulocyte # (Auto) 0.02 0.00-0.02 K/uL Sodium Level 137 136-145 mmol/L Potassium Level 3.8 3.5-5.1 mmol/L Chloride Level 106 98-107 mmol/L Carbon Dioxide Level 26 21-32 mmol/L Anion Gap 5.0 3-11 mmol/L Blood Urea Nitrogen 13 7-18 mg/dl Creatinine 1.03 0.60-1.40 mg/dl Est Creatinine Clear Calc Drug Dose 85.4 ml/min Estimated GFR () 89.2 Estimated GFR (Non- 76.9 BUN/Creatinine Ratio 12.5 10-20 Random Glucose 114 70-99 mg/dl Calcium Level 8.8 8.5-10.1 mg/dl Total Bilirubin 0.6 0.2-1 mg/dl Direct Bilirubin 0.1 0-0.2 mg/dl Aspartate Amino Transf (AST/SGOT) 11 15-37 U/L Alanine Aminotransferase (ALT/SGPT) 14 12-78 U/L Alkaline Phosphatase 88 45-117 U/L Total Protein 7.5 6.4-8.2 gm/dl Albumin 3.6 3.4-5.0 gm/dl Lipase 182 73-393 U/L Urine Color YELLOW Urine Appearance CLEAR CLEAR Urine pH 5.0 4.5-7.5 Urine Specific [place] > 1.045 1.000-1.030 Urine Protein NEG NEG Urine Glucose (UA) NEG NEG Urine Ketones NEG NEG Urine Occult Blood TRACE NEG Urine Nitrite NEG NEG Urine Bilirubin NEG NEG Urine Urobilinogen NEG NEG Urine Leukocyte Esterase NEG NEG Urine WBC (Auto) 1-5 0-5 /hpf Urine RBC (Auto) 0-4 0-4 /hpf Urine Hyaline Casts (Auto) 1-5 0-5 /lpf Urine Epithelial Cells (Auto) 10-20 0-5 /lpf Urine Bacteria (Auto) NEG NEG Diagnostic Radiology OUTPATIENT CT NECK WITH CONTRAST:08/13/17 Impression: 1 conglomerate superior mediastinal and cervical lymphadenopathy and partially imaged right upper lobe lung mass. Findings are highly concerning for malignancy, particularly lymphoma or metastatic lung cancer. 2. Massive lymph adenopathy partially surrounds the trachea, encases the innominate artery and severely compresses and may invade the superior vena cava. 3. Diffuse subcutaneous, retropharyngeal, hypopharyngeal and laryngeal edema may be secondary to venous congestion. CXR: IMPRESSION: 1. A 2.5 cm nodular density projects of the right upper lobe. Correlation with chest CT is recommended to assess for pulmonary lesion. 2. There is apparent widening of the mediastinum. This could be artifactual or could potential represent lymphadenopathy. This can also be assessed by CT. 3. Bibasilar atelectasis is observed. No airspace consolidation is seen typical for pneumonia. Impression H&P v2 Impression Assessment and Plan NECK MASS/LUNG MASS Patient presents with complaint of neck swelling, dysphagia, hoarseness, lightheadedness with standing over the past couple of weeks. Seen at PCP today and had CT neck with superior mediastinal and cervical lymphadenopathy and partially imaged right upper lobe lung mass. Massive lymph adenopathy partially surrounds the trachea, encases the innominate artery and severely compresses and may invade the superior vena cava. Diffuse subcutaneous, retropharyngeal, hypopharyngeal and laryngeal edema may be secondary to venous congestion. In ER Vitals stable. Patient able to handle secretions and maintaining airway. CXR in ER: 2.5 cm nodular density projects of the right upper lobe. There is apparent widening of the mediastinum. This could be artifactual or could potential represent lymphadenopathy. This can also be assessed by CT. Bibasilar atelectasis is observed. No airspace consolidation is seen typical for pneumonia. -Thoracic consult - spoke to Dr Sanchez, CT chest ordered and he plan to do biopsy tomorrow -N.p.o. after midnight -CBC, PRP in a.m. DM II H A1c 6.3 on 04/2012 -H A1c in a.m. -Hold oral agent -NovoLog sliding scale per protocol HTN Stable -Continue amlodipine, lisinopril, metoprolol, HCTZ HYPOTHYROIDISM TSH added -Continue levothyroxine CAD S/P STENT LAD IN 2010 No chest pain or shortness of breath -Continue statin, beta-fox CHRONIC LOW BACK PAIN -Continue gabapentin -Continue tramadol as needed pain GERD -Continue PPI DVT Prophylaxis -SCD in case of procedure in am Disposition admit tele Full code Follows with Dr Pérez for routine care Pt was seen with Dr Marquez. See addendum Attending Addendum Pt was seen and examined. Agreed with Ruth BUTLER exam, assessment and plan. 62 y /o M with PMH DM II, HTN, CAD S/P LILLI LAD 2 in 2010, chronic RBBB, chronic low back pain, hypothyroidism sent from PCP office to ER for neck swelling, sore throat. Pt said that for about 1 week, he has been having painful swallowing solid food. He said that his neck was mildly swollen yesterday, but this morning the swelling get worst. He had a CT neck done at his PCP office that showed superior mediastinal and cervical lymphadenopathy and partially imaged right upper lobe lung mass. Massive lymph adenopathy partially surrounds the trachea, encases the innominate artery and severely compresses and may invade the superior vena cava. Diffuse subcutaneous, retropharyngeal, hypopharyngeal and laryngeal edema may be secondary to venous congestion. Pt was sent to the ER for eval His vital is stable. Denies any SOB and chest pain. Thoracic surgeon consulted and recommended needle biopsy by IR radiology for further eval. Will make NPO after midnight. Will monitor closely in telemetry. MD Jimmy Resuscitation Status VTE Prophylaxis Will order VTE Prophylaxis: Yes Additional Copies To Fabián Pérez M.D. Physical Exam (per Admitting): General Appearance: WD/WN, no apparent distress Head: normocephalic, atraumatic Eyes: normal inspection, PERRL, EOMI, sclerae normal ENT: hearing grossly normal, pharynx normal (No edema or erythema noted. Uvula midline. Tongue without erythema or edema.), + pertinent finding (Mucous membranes moist) Neck: trachea midline, + pertinent finding (Diffuse edema. 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 Pathology:Small cell carcinoma CTs and MRI are suggestive of Metastases in Lung,Mediastinum,Liver and brain Bone Scan: No mets Appreciate Oncology/Radiation oncology Help Completed 1st cycle of chemotherapy with Cisplatin and Etoposide as per ,Next cycle in 3 weeks Continue allopurinol to prevent tumor lysis Palliative radiation for SVC syndrome and metastatic disease per Radiation Oncology Appreciate CT surgery help Failed repeated attempts to put A-Port .No need to have any PICC placement now SVC stenting not recommended by Vascular currently Video swallow: No evidence of tracheal aspiration Speech Therapy Discharge Instructions * 1.Moist Dental soft diet. Thin liquids. 2.Aspiration precautions, straws OK. Fully upright for meals and for 30 minutes after meals. Op appointment with PCP and Oncology and Continue RT Pneumonia likely postobstructive Started on Levaquin No fever and or increase in WCC Continue Levaquin for 10 days in total Chest pain due to Lung Carcinoma with mets Started on oral Hydrocodone May need to increase /change the medication for better control of pain DM II H A1c: 6.4 Hold oral agent continue ISS, Lantus monitor BGs -remains stable HTN Stable Continue amlodipine, lisinopril, metoprolol, HCTZ Hypothyroidism: TSH: normal Continue levothyroxine CAD S/P Stent to LAD Continue Aspirin, statin, beta-fox No acute issue Chronic back pain: Continue gabapentin GERD Continue PPI DVT Px: Lovenox SQ No ocean transportation intermediary anticoagulation for now-discussed with the Oncologist Code Status: Full code Disposition: Monitor in Tele Follows with Dr Pérez for routine care PROCEDURES: CT chest: 1. There is a 4.0 cm right upper lobe mass lesion. This should be considered neoplasm until proven otherwise. 2. Additional subcentimeter nodules are seen in the right upper lobe with associated intralobular septal thickening. This likely represents lymphangitic spread of tumor. 3. There is bulky mediastinal lymphadenopathy, left cervical adenopathy, and probable right hilar adenopathy. This should also be considered neoplasm until proven otherwise. 4. Small pleural effusions are identified. 5. There is a small pericardial effusion. 6. Bilateral adrenal nodules are indeterminant. CT ABD: 1. Multiple subtle hypodense right hepatic lobe lesions which are indeterminate but worrisome for metastatic disease. These measure up to 1.6 cm. 2. Indeterminate bilateral adrenal nodules. These may reflect metastatic disease or lipid poor adenomas. 3. No abdominal or pelvic lymphadenopathy. 4. Extensive aortoiliac atherosclerotic plaque with stenosis versus occlusion of the bilateral common iliac arteries. Brain MRI: 1.Multiple foci of punctate enhancement throughout the cerebellar as well as cerebral hemispheres. 2. This is highly suspect for developing metastatic change. 3. Age-related atrophy and chronic small vessel change. 4. No significant mass effect at this time. DISPOSITION Likely home this afternoon. Total time spent on discharge = 35 minutes This includes examination of the patient, discharge planning, medication reconciliation, and communication with other providers. Discharge Instructions Date of Service August 19, 2017. Admission Reason for Admission: Lung Mass, Neck Mass Discharge Discharge Diagnosis / Problem: Ca lung with Mets,Pneumonia Discharge Goals Goal(s): Prevent Disease Progression Activity Recommendations Activity Limitations: resume your previous activity . Instructions / Follow-Up Instructions / Follow-Up Dr Pérez on 08/24/17 at 10:45 AM .Keep appointment with Dr Germain and Radiation therapy Current Hospital Diet Patient's current hospital diet: Diabetes Type 2 Diet Discharge Diet Recommended Diet: Diabetes Type 2 Diet Procedures Procedures Performed: attemped Infusaport Insertion Pending Studies Studies pending at discharge: no Laboratory Results Hemoglobin A1c Test 08/14/17 05:31 Range/Units Estimated Average Glucose 137 mg/dl Hemoglobin A1c 6.4 H 4.5-5.6 % Medical Emergencies . Who to Call and When: Medical Emergencies: If at any time you feel your situation is an emergency, please call 911 immediately. . Non-Emergent Contact Non-Emergency issues call your: Primary Care Provider . Past History Medical & Surgical History: (1) Pneumonia (2) Metastatic cancer (3) Small cell lung cancer (4) Diabetes (5) CAD (coronary artery disease) (6) HTN (hypertension) (7) Hypothyroidism (8) Chronic low back pain . "Provider Documentation" section prepared by Jose Nichols. . <Electronically signed by Jose Nichols M.D.> Signed: 08/19/17 0043 Additional Copies To Fabián Pérez M.D.
--- NOTE | 2017-08-19 19:46 | SURGERY PROGRESS NOTE ---
DATE: 08/19/2017 Mr. Lopez was seen today. He looks great. His left supraclavicular lymph node is definitely smaller. He is not pooling saliva like he was. He states he feels "great." He appeared to be scheduled for discharge today. I will not need to see him in the office unless he develops a problem. I would be glad to see him at any time.
== END 2017-08-19 15:00 | disposition home or self-care (01) | DRG 166 ==
LOC: C.EDB 13:09 → C.MED 15:03 → ENRESERV 16:12 → C.4E 08-14 15:04
PROVIDERS: ADMIT Internal Medicine; ATTEND Internal Medicine
PROC: 07B73ZX Excision of Thorax Lymphatic, Percutaneous Approach, Diagnostic (ICD-10-PCS; principal; 2017-08-14)
PROC: 3E03305 Introduction of Other Antineoplastic into Peripheral Vein, Percutaneous Approach (ICD-10-PCS; 2017-08-16)
PROC: 05JY3ZZ Inspection of Upper Vein, Percutaneous Approach (ICD-10-PCS; 2017-08-18)
DX: C34.11 Malignant neoplasm of upper lobe, right bronchus or lung (principal); J18.9 Pneumonia, unspecified organism; I87.1 Compression of vein; C77.1 Secondary and unspecified malignant neoplasm of intrathoracic lymph nodes; J90 Pleural effusion, not elsewhere classified; C79.31 Secondary malignant neoplasm of brain; C78.7 Secondary malignant neoplasm of liver and intrahepatic bile duct; I25.10 Atherosclerotic heart disease of native coronary artery without angina pectoris; E11.9 Type 2 diabetes mellitus without complications; E03.9 Hypothyroidism, unspecified; Z98.1 Arthrodesis status; Z88.6 Allergy status to analgesic agent; Z95.1 Presence of aortocoronary bypass graft; I45.10 Unspecified right bundle-branch block; R13.10 Dysphagia, unspecified; I10 Essential (primary) hypertension; Z87.891 Personal history of nicotine dependence; Z79.82 Long term (current) use of aspirin; Z79.84 Long term (current) use of oral hypoglycemic drugs; M54.5 Low back pain; Z80.3 Family history of malignant neoplasm of breast; K21.9 Gastro-esophageal reflux disease without esophagitis

== ENCOUNTER 2017-11-30 08:27 | Day surgery (SDC) | payer OTHER ==
[2017-11-26 10:12] VITALS: BMI 28.0
[~2017-11-30] VITALS: Ht 188 cm; Wt 98.0 kg
[~2017-11-30 08:27] MED LIST changes: +ACET-1256 PO; +ALL300 PO; +AMLO10TA3 PO; +CEFAZOLIN 2000MG IV PUSH 15 ML IV SCH; -CLOP1TAB5 PO; -FLUT0.0529 NAE; +FLUT0.15 NAE; +GABA-113 PO; +HYDR-5688 PO; +HYDR12.56 PO; +LACTATED RINGER'S 1000ML 1,000 ML IV SCH; +MAGN400T6 PO; +MELA1TAB5 PO; -META800T99 PO; -Mometasone Furoate TOP; -OXYCONTIN HCL PO; +PANT40TA PO; -RANI150T85 PO; +ROSU40TA PO
[2017-11-30 08:59] VITALS: BP 136/70; PULSE 89; TEMP 36.7; O2SAT 97; Ht 188 cm; Wt 98.0 kg
[2017-11-30] MEDS ORDERED: PROPOFOL IV EMULSION 10 MG/ML 20 ML VIAL ONE (09:59)
[2017-11-30] MEDS ORDERED: FENTANYL CITRATE INJ 50 MCG/1 ML 2 ML VIAL ONE (10:00)
[2017-11-30] MEDS ORDERED: MIDAZOLAM HCL 1 MG/ML 2ML VIAL ONE (10:00)
[2017-11-30] MEDS ORDERED: LIDOCAINE HCL 1% 20 ML VIAL ONE (11:18)
[2017-11-30] MEDS ORDERED: BACITRACIN OINT 15 GM TUBE ONE (11:19)
[2017-11-30] MEDS ORDERED: BUPIVACAINE 0.5 % 5 MG/1 ML PF 10ML VIAL ONE (11:19)
[2017-12-01] MEDS ORDERED: CEFAZOLIN SOD 2000MG/15 ML IV PUSH IV ONE (06:00)
--- NOTE | 2017-12-06 11:00 | EDITING REQUIRED CODING QUERY ---
CANCELLED PROCEDURE Nursing notes indicate that the procedure intended for 11/30/17 was cancelled. Please document below the reason for the cancellation: Based on patient had enlargement of upper chest. I did try to place port in which was not successful on 1-2 months ago because of tumor block SVC. I recommended that patient may let vascular surgeon to place port in, the vascular surgeon can inject dye into SVC to look any patency on SVC, this way is better chance to be success to place port in and avoid complications. REASON FOR CANCELLATION: Thank you for your assistance, Grisel Villafuerte - Improvement Spec
== END 2017-11-30 11:55 | disposition home or self-care (01) ==
LOC: C.ACU 08:27
PROVIDERS: ATTEND Surgery
DX: C34.90 Malignant neoplasm of unspecified part of unspecified bronchus or lung (principal); Z53.29 Procedure and treatment not carried out because of patient's decision for other reasons; I25.10 Atherosclerotic heart disease of native coronary artery without angina pectoris; I10 Essential (primary) hypertension; K21.9 Gastro-esophageal reflux disease without esophagitis; E11.9 Type 2 diabetes mellitus without complications; L40.8 Other psoriasis; E03.9 Hypothyroidism, unspecified; I45.10 Unspecified right bundle-branch block; I25.2 Old myocardial infarction; Z88.6 Allergy status to analgesic agent; Z88.8 Allergy status to other drugs, medicaments and biological substances; Z86.010 Personal history of colon polyps; Z98.1 Arthrodesis status; Z87.891 Personal history of nicotine dependence